=== PATIENT | female | born 1985 | race Caucasian/White ===

== ENCOUNTER 2020-07-24 14:38 | Outpatient (REF) | payer OTHER, SELFPAY ==
[2020-07-24 16:13] LABS: HCG Quantitative 351 mIU/mL
== END 2020-07-24 14:39 | disposition home or self-care (01) ==
LOC: HO.LAB 14:38
PROVIDERS: PCP Internal Medicine; Visit Provider Advanced Practice Midwife
DX: O20.9 Hemorrhage in early pregnancy, unspecified (principal)
CPT/HCPCS: 84702

== ENCOUNTER 2020-07-26 14:49 | Outpatient (REF) | payer OTHER, SELFPAY ==
[2020-07-26 16:12] LABS: HCG Quantitative 332 mIU/mL
== END 2020-07-26 14:50 | disposition home or self-care (01) ==
LOC: HO.LAB 14:49
PROVIDERS: Visit Provider Advanced Practice Midwife
DX: O20.9 Hemorrhage in early pregnancy, unspecified (principal)
CPT/HCPCS: 84702

== ENCOUNTER 2020-08-02 14:49 | Outpatient (REF) | payer OTHER, SELFPAY ==
[2020-08-02 16:14] LABS: HCG Quantitative 398 mIU/mL
== END 2020-08-02 14:50 | disposition home or self-care (01) ==
LOC: HO.LAB 14:49
PROVIDERS: PCP Internal Medicine; Visit Provider Advanced Practice Midwife
DX: O20.9 Hemorrhage in early pregnancy, unspecified (principal); Z3A.00 Weeks of gestation of pregnancy not specified
CPT/HCPCS: 84702

== ENCOUNTER 2020-08-03 12:10 | Outpatient (REF) | payer OTHER, SELFPAY | END 2020-08-03 12:11 | disposition home or self-care (01) | LOC: HO.LAB 12:10 | PROVIDERS: PCP Internal Medicine; Visit Provider Obstetrics & Gynecology | DX: O00.90 Unspecified ectopic pregnancy without intrauterine pregnancy (principal); Z3A.00 Weeks of gestation of pregnancy not specified | CPT/HCPCS: 99213 ==

== ENCOUNTER 2020-08-06 15:44 | Outpatient (REF) | payer OTHER, SELFPAY ==
[2020-08-06 17:11] LABS: HCG Quantitative 318 mIU/mL
== END 2020-08-06 15:45 | disposition home or self-care (01) ==
LOC: HO.LAB 15:44
PROVIDERS: PCP Internal Medicine; Visit Provider Obstetrics & Gynecology
DX: O00.90 Unspecified ectopic pregnancy without intrauterine pregnancy (principal); R79.89 Other specified abnormal findings of blood chemistry
CPT/HCPCS: 84702

== ENCOUNTER 2020-08-09 14:14 | Outpatient (REF) | payer OTHER, SELFPAY ==
[2020-08-09 15:21] LABS: HCG Quantitative 229 mIU/mL
== END 2020-08-09 14:15 | disposition home or self-care (01) ==
LOC: HO.LAB 14:14
PROVIDERS: PCP Internal Medicine; Visit Provider Obstetrics & Gynecology
DX: O00.90 Unspecified ectopic pregnancy without intrauterine pregnancy (principal)
CPT/HCPCS: 84702; 99212

== ENCOUNTER 2020-08-16 16:01 | Outpatient (REF) | payer OTHER, SELFPAY ==
[2020-08-16 18:35] LABS: HCG Quantitative 49 mIU/mL
== END 2020-08-16 16:02 | disposition home or self-care (01) ==
LOC: HO.LAB 16:01
PROVIDERS: PCP Internal Medicine; Visit Provider Obstetrics & Gynecology
DX: O00.90 Unspecified ectopic pregnancy without intrauterine pregnancy (principal)
CPT/HCPCS: 84702; 86850; 86900; 86901

== ENCOUNTER 2020-09-11 13:48 | Outpatient (REF) | payer OTHER, SELFPAY ==
[2020-09-11 15:28] LABS: HCG Quantitative < 2 mIU/mL
== END 2020-09-11 13:49 | disposition home or self-care (01) ==
LOC: HO.LAB 13:48
PROVIDERS: PCP Internal Medicine; Visit Provider Obstetrics & Gynecology
DX: O00.90 Unspecified ectopic pregnancy without intrauterine pregnancy (principal)
CPT/HCPCS: 84702

== ENCOUNTER 2021-02-15 10:31 | Emergency (ER) | payer OTHER, SELFPAY ==
--- NOTE | ~2021-02-15 | CT_ITS ---
EXAMINATION: CT ABDOMEN AND PELVIS WITH CONTRAST CLINICAL INFORMATION: Right lower quadrant pain COMPARISON: None TECHNIQUE: Multidetector volumetric images were obtained from the superior aspect of the liver through the pubic symphysis following administration 85 mL of Omnipaque 350 intravenous contrast. Sagittal and coronal reformatted images were obtained on the technologist's workstation. Oral contrast: No This CT examination was performed using dose optimization techniques as appropriate, variously including the following: *Automated exposure control *Adjustment of mA and/or kV according to patient size (this includes techniques or standardized protocols for targeted exams where dose is matched to indication/reason for exam; i.e. extremities or head) *Use of iterative reconstruction technique DLP: 1505 mGy-cm FINDINGS: LUNG BASES: The visualized lung bases are unremarkable. LIVER, GALLBLADDER, AND BILIARY TREE: The liver is normal in size, shape, and attenuation. No focal hepatic lesion or biliary ductal dilatation is present. The gallbladder has been surgically removed. PANCREAS: Unremarkable. SPLEEN: Unremarkable. ADRENAL GLANDS: Unremarkable. KIDNEYS AND URETERS: The kidneys are normal in size, shape, and attenuation. No hydronephrosis, hydroureter, or calculi seen. No perinephric stranding. BLADDER: Unremarkable. GASTROINTESTINAL TRACT: There are a few scattered diverticuli, stool and gas seen throughout the colon without any diverticulitis or obstruction. The small bowel loops are normal caliber. Appendix is not seen well. No inflammatory process seen. ABDOMINAL WALL: A small umbilical hernia containing fat is noted. LYMPH NODES: Normal. VASCULAR: Unremarkable. PELVIC VISCERA: The uterus is anteverted with a punctate enhancing 4 mm enhancing lesion in the left fundus likely a small fibroid.. No additional lesions seen. There is no free fluid. No adnexal mass or abnormal inguinal or pelvic lymphadenopathy seen. OSSEOUS STRUCTURES: Unremarkable. CT/CT abdomen pelvis w con IMPRESSION: No acute intra-abdominal process seen. Small umbilical hernia containing fat. Probable small enhancing left uterine fibroid.
--- NOTE | 2021-02-15 10:45 | ED_ITS ---
HPI - Abdominal Pain General Chief Complaint: Abdominal Pain Stated Complaint: ABD PAIN Time Seen by Provider: 02/15/21 10:45 Source: patient Mode of arrival: ambulatory Limitations: no limitations History of Present Illness HPI narrative: 35 yo female with hx of fibromyalgia and ectopic comes in with lower abdominal pain n/v/d and fevers at home x 5 days, no recent antibiotics, no prior history of this in past, just finished her menses MD elicited complaint: abdominal pain Pertinent past history: none Onset (ago): day(s) (5) Pain Consistency: constant Location: RLQ and suprapubic Severity: moderate Quality: stabbing Migration to: LLQ and RLQ Exacerbating factors: movement Relieving factors: nothing Associated symptoms: nausea, vomiting, fever and chills Related Data Home Medications Medication Instructions Recorded Confirmed gabapentin 600 mg tablet 600 mg PO TID 08/03/20 Previous Rx's Medication Instructions Recorded norethindrone 1 mg-ethinyl 1 tab PO DAILY #140 tab 08/09/20 estradiol 10 mcg (24)-iron 10 mcg(2) tablet norethindrone 1 mg-ethinyl 1 tab PO DAILY 28 Days #28 tab 09/12/20 estradiol 10 mcg (24)-iron 10 mcg(2) tablet gabapentin 800 mg tablet 800 mg PO TID #90 tab 12/03/20 ondansetron 4 mg PO Q8H PRN #20 tab 02/15/21 Allergies Allergy/AdvReac Type Severity Reaction Status Date / Time cephalexin [From KEFLEX] AdvReac Intermediate NAUSEA & Unverified 08/03/20 12:10 VOMITING duloxetine [From CYMBALTA] AdvReac Intermediate NAUSEA & Unverified 08/03/20 12:10 VOMITING Review of Systems Review of Systems Constitutional : No Weight loss, pos Fever, pos Chills ENT/Mouth : No sore throat, No Rhinorrhea Eyes: No Swelling, No Redness Cardiovascular : No Chest Pain, No SOB, NoEdema Respiratory : No Cough, No Sputum, No Wheezing Gastrointestinal : Positive Nausea, Positive Vomiting, positive Diarrhea, positive abdominal Pain, No Hematochezia, No Melena Genitourinary : No Dysuria, No Urinary Frequency, No Hematuria, No Urgency Musculoskeletal : No joint pain, No Myalgias, No Joint Swelling Skin : No Skin Lesions, No rash Neuro : No Weakness, No Numbness, No Dizziness, No Headache Psych : No Anxiety/Panic, No Depression Heme/Lymph: No Bruising, No Lymphadenopathy Endocrine : No Polyuria, No Polydipsia All other systems reviewed and are negative. Physical Exam Vital Signs: Vital Signs: Last Vital Signs Temp 98.3 F 02/15/21 10:46 Pulse 127 H 02/15/21 10:46 Resp 16 02/15/21 11:48 BP 162/98 H 02/15/21 10:46 Pulse Ox 98 02/15/21 10:46 Body Mass Index 53.1 Appearance: Alert. Oriented X3. No acute distress. Eyes: Pupils equal, round and reactive to light. ENT: Pharynx mild MM Neck: Normal inspection. Neck supple. CVS: Normal heart rate and rhythm. Pulses normal. Respiratory: No respiratory distress. Breath sounds normal. Abdomen: Soft and moderate RLQ ttp + Rovsing's sign, mild guarding, no rebound Skin: Skin warm and dry. Normal skin color. Normal skin turgor. Extremities: No lower extremity edema. No calf ttp Neuro: Oriented X 3. No motor deficit. No sensory deficit. Course Course Course Narrative: patient feels better, COVID GI variant, able to tolerate PO, feels improved up and walking to the bathroom stable O2, plan to send home with nausea medicatiosn and precautions, patient aware MDM - Abdominal Pain MDM Narrative Medical decision making narrative: 35 yo female with hx of fibromyalgia and ectopic in past (methotrexate) comes in with 5 days of worsening lower abdominal pain at this time will need labs, IVF morphine for pain, CT scan for appendicitis/colitis dispo per results and findings. Differential Diagnosis Differential diagnosis: Likely abdominal pain, acute appendicitis, diverticulitis, ovarian cyst and renal colic Lab Data Result diagrams: 02/15/21 11:35 02/15/21 11:35 Labs: Lab Results 02/15/21 02/15/21 02/15/21 Range/Units 11:35 11:35 11:35 WBC 7.2 (4.8-10.8) X10*3/uL RBC 5.91 H D (4.20-5.50) X10*6/uL Hgb 16.6 H D (12.0-16.0) g/dl Hct 48.6 H (37-47) % MCV 82.2 (80-98) fL MCH 28.1 (27.0-33.0) pg MCHC 34.2 (31.0-35.0) g/dl RDW 12.8 (11.0-16.0) % Plt Count 229 (160-400) X10*3/uL MPV 10.7 (9.4-12.3) fL Immature Gran % (Auto) 0.3 (0.0-0.4) % Neut % (Auto) 71.2 (45-73) % Lymph % (Auto) 21.9 (20-40) % [place] % (Auto) 6.2 (2-11) % Eos % (Auto) 0.3 (0-4) % Baso % (Auto) 0.1 (0-2) % Lymph # (Auto) 1.6 (1.2-4.9) X10*3/uL [place] # (Auto) 0.5 (0.1-1.2) X10*3/uL Eos # (Auto) 0.0 (0.0-0.4) X10*3/uL Baso # (Auto) 0.0 (0.0-0.2) X10*3/uL Abs Immat Gran (auto) 0.02 (0.00-0.03) X10*3/uL Absolute Neuts (auto) 5.1 (2.0-8.3) X10*3/uL Absolute Nucleated RBC 0.000 (0.0-0.012) X10*3/uL Nucleated RBC % (auto) 0.0 (0.0-0.2) /100WBC Hold Blue Top SEE NOTE Sodium 139 (135-145) mmol/L Potassium 3.8 (3.3-5.1) mmol/L Chloride 105 (96-108) mmol/L Carbon Dioxide 21 L (22-29) mmol/L Anion Gap 17 (12-20) BUN 13 (9-16) mg/dL Creatinine 0.81 (0.5-1.4) mg/dL Estim Creat Clear Calc 133.9 Estimated GFR > 60 Random Glucose 118 H (60-115) mg/dL Lactic Acid (0.5-2.0) mmol/L Calcium 9.3 (8.4-10.2) mg/dL Magnesium (1.6-2.6) mg/dL Total Bilirubin (0.0-1.0) mg/dL Direct Bilirubin (0.0-0.5) mg/dL AST (5-31) U/L ALT (0-31) U/L Alkaline Phosphatase (39-117) U/L Total Protein (6.5-8.0) g/dL Albumin (3.5-5.0) g/dL Beta HCG, Quant < 2 mIU/mL Urine Color Urine Appearance Urine pH (5.0-8.0) Ur Specific [place] (1.005-1.025) Urine Protein (NEG-TRACE) MG/DL Urine Glucose (UA) (NEG) MG/DL Urine Ketones (NEG) MG/DL Urine Blood (NEG) Urine Nitrite (NEG) Ur Leukocyte Esterase (NEG) COVID-19 (JOY) (Negative) COVID-19 Clin Com 02/15/21 02/15/21 02/15/21 Range/Units 11:35 11:35 11:35 WBC (4.8-10.8) X10*3/uL RBC (4.20-5.50) X10*6/uL Hgb (12.0-16.0) g/dl Hct (37-47) % MCV (80-98) fL MCH (27.0-33.0) pg MCHC (31.0-35.0) g/dl RDW (11.0-16.0) % Plt Count (160-400) X10*3/uL MPV (9.4-12.3) fL Immature Gran % (Auto) (0.0-0.4) % Neut % (Auto) (45-73) % Lymph % (Auto) (20-40) % [place] % (Auto) (2-11) % Eos % (Auto) (0-4) % Baso % (Auto) (0-2) % Lymph # (Auto) (1.2-4.9) X10*3/uL [place] # (Auto) (0.1-1.2) X10*3/uL Eos # (Auto) (0.0-0.4) X10*3/uL Baso # (Auto) (0.0-0.2) X10*3/uL Abs Immat Gran (auto) (0.00-0.03) X10*3/uL Absolute Neuts (auto) (2.0-8.3) X10*3/uL Absolute Nucleated RBC (0.0-0.012) X10*3/uL Nucleated RBC % (auto) (0.0-0.2) /100WBC Hold Blue Top Sodium (135-145) mmol/L Potassium (3.3-5.1) mmol/L Chloride (96-108) mmol/L Carbon Dioxide (22-29) mmol/L Anion Gap (12-20) BUN (9-16) mg/dL Creatinine (0.5-1.4) mg/dL Estim Creat Clear Calc Estimated GFR Random Glucose (60-115) mg/dL Lactic Acid 1.4 (0.5-2.0) mmol/L Calcium (8.4-10.2) mg/dL Magnesium 2.3 (1.6-2.6) mg/dL Total Bilirubin 0.8 (0.0-1.0) mg/dL Direct Bilirubin 0.4 (0.0-0.5) mg/dL AST 32 H D (5-31) U/L ALT 52 H (0-31) U/L Alkaline Phosphatase 113 (39-117) U/L Total Protein 7.6 (6.5-8.0) g/dL Albumin 4.5 (3.5-5.0) g/dL Beta HCG, Quant mIU/mL Urine Color Urine Appearance Urine pH (5.0-8.0) Ur Specific [place] (1.005-1.025) Urine Protein (NEG-TRACE) MG/DL Urine Glucose (UA) (NEG) MG/DL Urine Ketones (NEG) MG/DL Urine Blood (NEG) Urine Nitrite (NEG) Ur Leukocyte Esterase (NEG) COVID-19 (JOY) Positive A (Negative) COVID-19 Clin Com See Note 02/15/21 Range/Units 14:24 WBC (4.8-10.8) X10*3/uL RBC (4.20-5.50) X10*6/uL Hgb (12.0-16.0) g/dl Hct (37-47) % MCV (80-98) fL MCH (27.0-33.0) pg MCHC (31.0-35.0) g/dl RDW (11.0-16.0) % Plt Count (160-400) X10*3/uL MPV (9.4-12.3) fL Immature Gran % (Auto) (0.0-0.4) % Neut % (Auto) (45-73) % Lymph % (Auto) (20-40) % [place] % (Auto) (2-11) % Eos % (Auto) (0-4) % Baso % (Auto) (0-2) % Lymph # (Auto) (1.2-4.9) X10*3/uL [place] # (Auto) (0.1-1.2) X10*3/uL Eos # (Auto) (0.0-0.4) X10*3/uL Baso # (Auto) (0.0-0.2) X10*3/uL Abs Immat Gran (auto) (0.00-0.03) X10*3/uL Absolute Neuts (auto) (2.0-8.3) X10*3/uL Absolute Nucleated RBC (0.0-0.012) X10*3/uL Nucleated RBC % (auto) (0.0-0.2) /100WBC Hold Blue Top Sodium (135-145) mmol/L Potassium (3.3-5.1) mmol/L Chloride (96-108) mmol/L Carbon Dioxide (22-29) mmol/L Anion Gap (12-20) BUN (9-16) mg/dL Creatinine (0.5-1.4) mg/dL Estim Creat Clear Calc Estimated GFR Random Glucose (60-115) mg/dL Lactic Acid (0.5-2.0) mmol/L Calcium (8.4-10.2) mg/dL Magnesium (1.6-2.6) mg/dL Total Bilirubin (0.0-1.0) mg/dL Direct Bilirubin (0.0-0.5) mg/dL AST (5-31) U/L ALT (0-31) U/L Alkaline Phosphatase (39-117) U/L Total Protein (6.5-8.0) g/dL Albumin (3.5-5.0) g/dL Beta HCG, Quant mIU/mL Urine Color YELLOW Urine Appearance CLEAR Urine pH 6.5 (5.0-8.0) Ur Specific [place] <= 1.005 (1.005-1.025) Urine Protein TRACE (NEG-TRACE) MG/DL Urine Glucose (UA) NEG (NEG) MG/DL Urine Ketones 40 (NEG) MG/DL Urine Blood NEG (NEG) Urine Nitrite NEG (NEG) Ur Leukocyte Esterase NEG (NEG) COVID-19 (JOY) (Negative) COVID-19 Clin Com Discharge Plan Discharge Clinical Impression: COVID-19 Abdominal pain Qualifiers: Abdominal location: generalized Qualified Code(s): R10.84 - Generalized abdominal pain Vomiting Qualifiers: Vomiting type: unspecified Vomiting Intractability: non-intractable Nausea presence: with nausea Qualified Code(s): R11.2 - Nausea with vomiting, unspecified Patient Disposition: Home, Self-Care Instructions: Acute Nausea and Vomiting (ED), COVID-19 (Coronavirus Disease 2019) (ED) Additional Instructions: return to ED for any worsening symptoms or concerns Prescriptions: New ondansetron 4 mg tablet,disintegrating 4 mg PO Q8H PRN (Reason: nausea and vomiting) Qty: 20 RF: 0 No Action Lo Loestrin Fe 1 mg-10 mcg (24)/10 mcg (2) tablet 1 tab PO DAILY 28 Days Qty: 28 RF: 6 gabapentin 800 mg tablet 800 mg PO TID Qty: 90 RF: 3 gabapentin 600 mg tablet 600 mg PO TID RF: 0 Lo Loestrin Fe 1 mg-10 mcg (24)/10 mcg (2) tablet 1 tab PO DAILY Qty: 140 RF: 0 Stand Alone Forms: Work/School Release [facility] Past Medical History Attestation statement: The following information was validated with the patient. Medical History Fibromyalgia Surgical History Hx of cholecystectomy Social History Social History Alcohol intake: never Smoking Status: Current every day smoker Smoked in Last 30 Days: No Use of substances other than those prescribed or required for medical reasons: No Advance Directives: Yes Advance Directives Information Provided: No Advance Directives on File: No Patient : No Sexual orientation: Straight/Heterosexual Gender identity: female
[2021-02-15 10:46] VITALS: BP 162/98; PULSE 127; RESP 18; TEMP 36.8; O2SAT 98; BMI 53.1
[2021-02-15 11:39] LABS: MANUAL DIFF FLAG NO
[2021-02-15 11:45] LABS: Basophils Percent Auto 0.1 % (0-2); Eosinophils Percent Auto 0.3 % (0-4); Hematocrit 48.6 % (37-47); Hemoglobin 16.6 g/dl (12.0-16.0); Imm Gran Abs Auto 0.02 X10*3/uL (0.00-0.03); Imm Gran Pct Auto 0.3 % (0.0-0.4); Lymphocytes Absolute Auto 1.6 X10*3/uL (1.2-4.9); Lymphocytes Percent Auto 21.9 % (20-40); Mean Corpuscular HGB Conc 34.2 g/dl (31.0-35.0); Mean Corpuscular Hemoglobin 28.1 pg (27.0-33.0); Mean Corpuscular Volume 82.2 fL (80-98); Mean Platelet Volume 10.7 fL (9.4-12.3); Monocytes Absolute Auto 0.5 X10*3/uL (0.1-1.2); Monocytes Percent Auto 6.2 % (2-11); Neutrophils Absolute Auto 5.1 X10*3/uL (2.0-8.3); Neutrophils Percent Auto 71.2 % (45-73); Platelet Count 229 X10*3/uL (160-400); Red Blood Count 5.91 X10*6/uL (4.20-5.50); Red Cell Distribution Width 12.8 % (11.0-16.0); White Blood Count 7.2 X10*3/uL (4.8-10.8)
[2021-02-15 11:48] VITALS: RESP 16
[2021-02-15] MEDS: Ketorolac Tromethamine 30 MG/ML VIAL IVPUSH (11:48)
[2021-02-15] MEDS: ondansetron HCL 4 MG/2 ML VIAL IVPUSH ×2 (11:48→15:22)
[2021-02-15] MEDS: 0.9 % Sodium Chloride 1,000 ML 999 ML IVCONT ×2 (11:48→13:25)
[2021-02-15] MEDS: Morphine Sulfate 4 MG/ML CARTRIDGE IVPUSH (11:48)
[2021-02-15 12:00] LABS: COVID-19 Test Positive (Negative); IDNOW Serial# 9DD0AD1C; Lactic Acid 1.4 mmol/L (0.5-2.0)
[2021-02-15 12:04] LABS: Alanine Aminotransferase 52 U/L (0-31); Albumin Level 4.5 g/dL (3.5-5.0); Alkaline Phosphatase 113 U/L (39-117); Anion Gap 17 (12-20); Aspartate Amino Transferase 32 U/L (5-31); Bilirubin Direct 0.4 mg/dL (0.0-0.5); Bilirubin Total 0.8 mg/dL (0.0-1.0); Blood Urea Nitrogen 13 mg/dL (9-16); Calcium 9.3 mg/dL (8.4-10.2); Carbon Dioxide 21 mmol/L (22-29); Chloride 105 mmol/L (96-108); Creatinine Clr Calc Pharmacy 133.9; Estimated Glomerular Filt Rate > 60; Glucose Random 118 mg/dL (60-115); Magnesium 2.3 mg/dL (1.6-2.6); Potassium 3.8 mmol/L (3.3-5.1); Sodium 139 mmol/L (135-145); Total Protein 7.6 g/dL (6.5-8.0)
[2021-02-15 12:09] LABS: HCG Quantitative < 2 mIU/mL
[2021-02-15] MEDS: iohexoL 350 MG/ML 100 ML INFUS..BTL IV (12:42)
[2021-02-15 14:37] LABS: Glucose Urine UA NEG (NEG); Leukocyte Esterase Urine NEG (NEG); Nitrite Urine NEG (NEG); PH 6.5 (5.0-8.0); Specific Gravity - Urine <= 1.005 (1.005-1.025); Urine Blood NEG (NEG); Urine Ketones 40 MG/DL (NEG); Urine Protein TRACE MG/DL (NEG-TRACE)
[2021-02-15 14:45] LABS: Appearance Urine CLEAR; Color Urine YELLOW
[2021-02-15 15:22] VITALS: BP 123/94; PULSE 90; RESP 6; O2SAT 96
[2021-02-15 15:27] VITALS: BP 125/86; PULSE 99; RESP 16; O2SAT 97
== END 2021-02-15 15:30 | disposition home or self-care (01) ==
PROVIDERS: Emergency Provider Emergency Medicine; PCP Internal Medicine
DX: U07.1 COVID-19 (principal); R10.30 Lower abdominal pain, unspecified; R10.31 Right lower quadrant pain; R11.2 Nausea with vomiting, unspecified; F17.200 Nicotine dependence, unspecified, uncomplicated; Z79.899 Other long term (current) drug therapy; Z71.6 Tobacco abuse counseling
CPT/HCPCS: 36415; 74177; 80048; 80076; 81003; 83605; 83735; 84702; 85025; 87040; 87635; 96361; 96365; 96375; 96376; 99285; J1885; J2270; J2405; Q9967

== ENCOUNTER 2021-02-17 09:57 | Emergency (ER) | payer OTHER, SELFPAY ==
[2021-02-17 10:10] VITALS: BP 132/79; PULSE 106; RESP 22; TEMP 37; O2SAT 96; BMI 53.1
[2021-02-17 10:23] VITALS: BP 132/79; PULSE 103; RESP 14; TEMP 37; O2SAT 96
--- NOTE | 2021-02-17 10:37 | PC.NURSE ---
Pt alert and oriented, VSS, skin pink, warm, dry. Pt reports abd pain for 3days, n/v, diarrhea, and inability to void since 02/17 am. Visited ED 02/15 for same issue with some relief after visit. Pain worse than before this am. BS hyperactive all quadrants, abd tender to touch. Pt COVID +. Awaiting lab results at this time.
--- NOTE | 2021-02-17 11:28 | ED_ITS ---
HPI - Abdominal Pain General Chief Complaint: Abdominal Pain Stated Complaint: + Covid, multiple complaints Time Seen by Provider: 02/17/21 10:37 Source: patient Mode of arrival: ambulatory Limitations: no limitations History of Present Illness HPI narrative: Patient presents to ED for abdominal pain for the past 3 days. Patient known COVID positive. Patient denies any chest pain or shortness of breath. Patient was seen 3 days ago for similar presentation. Patient states also unable to void urine. Patient has any swelling of lower extremity, dysuria, vaginal bleeding, flank pain, fever, or chills. Patient had similar presentation 2 days ago. Patient states diarrhea, nausea, and vomiting Related Data Home Medications Medication Instructions Recorded Confirmed gabapentin 600 mg tablet 600 mg PO TID 08/03/20 Previous Rx's Medication Instructions Recorded norethindrone 1 mg-ethinyl 1 tab PO DAILY #140 tab 08/09/20 estradiol 10 mcg (24)-iron 10 mcg(2) tablet norethindrone 1 mg-ethinyl 1 tab PO DAILY 28 Days #28 tab 09/12/20 estradiol 10 mcg (24)-iron 10 mcg(2) tablet gabapentin 800 mg tablet 800 mg PO TID #90 tab 12/03/20 ondansetron 4 mg PO Q8H PRN #20 tab 02/15/21 dicyclomine 20 mg PO QID #28 tab 02/17/21 Allergies Allergy/AdvReac Type Severity Reaction Status Date / Time cephalexin [From KEFLEX] AdvReac Intermediate NAUSEA & Verified 02/17/21 10:18 VOMITING duloxetine [From CYMBALTA] AdvReac Intermediate NAUSEA & Verified 02/17/21 10:18 VOMITING Review of Systems Review of Systems Yes all other systems are reviewed and are negative Constitutional: Reports as per HPI and Reports no additional constitutional complaints Eyes: Reports as per HPI and Reports no additional eye complaints Reports system reviewed and no additional complaints, except as documented and Reports as per HPI Cardiovascular: Reports as per HPI and Reports no additional cardiovascular complaints Respiratory: Reports as per HPI and Reports no additional respiratory complaints Gastrointestinal: Reports as per HPI, Reports no additional gastrointestinal complaints, Reports abdominal pain, Reports belching (Abdominal pain), Reports diarrhea, Reports nausea and Reports vomiting Genitourinary: Reports no additional female genitourinary complaints and Reports as per HPI Musculoskeletal: Reports no additional musculoskeletal complaints and Reports as per HPI Reports system reviewed and no additional complaints, except as documented and Reports as per HPI Psychiatric: Reports no additional psychiatric complaints and Reports as per HPI Physical Exam Vital Signs: Vital Signs: Last Vital Signs Temp 98.4 F 02/17/21 14:17 Pulse 98 02/17/21 16:00 Resp 20 02/17/21 16:00 BP 153/87 H 02/17/21 16:00 Pulse Ox 96 02/17/21 16:00 Body Mass Index 53.1 Const: General: cooperative, healthy appearing, comfortable, no acute distress, well developed, alert, awake and Physically active Orientation/consciousness: patient oriented x3 HENMT: Head: Yes normal to inspection, Yes No palpable skull fracture present, Yes normocephalic and Yes atraumatic Eyes: General: appearance normal, both eyes and all related structures Neck: Neck: Yes normal visual inspection, Yes full ROM, Yes no lymphadenopathy, Yes no meningeal signs, Yes trachea midline, Yes supple and No tender Chest: Chest palpation & inspection: normal inspection of the chest and normal palpation of entire chest wall Breast/axilla inspection: normal inspection of the breasts Resp: Effort & Inspection: normal respiratory effort and able to speak in complete sentences Auscultation: clear to auscultation bilaterally Cardio: Jugular venous distension: no JVD Heart sounds: S1 normal heart sound present and S2 normal heart sound present GI: Inspection: Yes normal to inspection and No abdominal wall ecchymosis Palpation (GI): Soft to palpation, not firm, Tenderness to palpation present (GI) in the LLQ and in the RLQ; not at McBurney's point, not periumbilically, not suprapubicly, Mccloud's sign negative, obturator sign negative, psoas sign negative, with no rebound tenderness and Rovsing's sign negative, no guarding and not rigid : General: No CVA tenderness and Yes no CVA tenderness Back/Spine/Pelvis: Back: no CVA tenderness, No CVA tenderness and No back tenderness Skin: General skin exam: no rashes or lesions noted and elasticity normal Neuro: General: patient oriented x3, no meningeal signs and CN's II-XI intact bilaterally Cranial nerves: Yes CN's II-XII intact bilaterally Extrem: General: Yes normal to inspection and Yes full ROM Psych: Appearance: grossly normal, well kempt and not disheveled Course Course Course Narrative: Patient having abdominal pain, diarrhea, nausea, vomiting most likely viral syndrome from COVID. Not suspecting PE or MS. will do basic labs and pain medication with GI cocktail. Wait for test and will give Toradol. Patient was seen here 3 days ago for similar presentation had normal CT scan. Reevaluation(s) Reevaluation #1: Patient labs negative to give for elevated white blood cell count. Other labs are baseline. Patient given morphine could she still having pain. Waiting for UA results. Reevaluation #2: I went to re-evaluate patient states feeling better. Patient states she has has had these episodes before in the past and states they occurred after smoking weed. With this information present presentation indicates cyclic vomiting/clicking abdominal pain. Patient admits to recently smoking weed. If UA come back normal patient will be discharged. Reevaluation #3: Patient's UA came back negative for UTI. Patient is safe for discharge. No need for repeat imaging. Patient does not have any guarding or abdominal rigidity. CT scan 2 days earlier was normal. MDM - Abdominal Pain MDM Narrative Medical decision making narrative: Abdominal pain. Sick with vomiting Lab Data Result diagrams: 02/17/21 11:37 02/17/21 11:37 Labs: Lab Results 02/17/21 02/17/21 02/17/21 Range/Units 11:37 11:37 11:37 WBC 8.2 (4.8-10.8) X10*3/uL RBC 5.59 H (4.20-5.50) X10*6/uL Hgb 16.0 (12.0-16.0) g/dl Hct 45.1 (37-47) % MCV 80.7 (80-98) fL MCH 28.6 (27.0-33.0) pg MCHC 35.5 H (31.0-35.0) g/dl RDW 12.7 (11.0-16.0) % Plt Count 313 D (160-400) X10*3/uL MPV 10.6 (9.4-12.3) fL Immature Gran % (Auto) 0.4 (0.0-0.4) % Neut % (Auto) 72.2 (45-73) % Lymph % (Auto) 20.1 (20-40) % [place] % (Auto) 6.8 (2-11) % Eos % (Auto) 0.1 (0-4) % Baso % (Auto) 0.4 (0-2) % Lymph # (Auto) 1.7 (1.2-4.9) X10*3/uL [place] # (Auto) 0.6 (0.1-1.2) X10*3/uL Eos # (Auto) 0.0 (0.0-0.4) X10*3/uL Baso # (Auto) 0.0 (0.0-0.2) X10*3/uL Abs Immat Gran (auto) 0.03 (0.00-0.03) X10*3/uL Absolute Neuts (auto) 5.9 (2.0-8.3) X10*3/uL Absolute Nucleated RBC 0.000 (0.0-0.012) X10*3/uL Nucleated RBC % (auto) 0.0 (0.0-0.2) /100WBC PT 15.2 H (10.8-13.0) SEC INR 1.3 H (0.9-1.1) APTT 33.5 (24.1-38.0) SEC Sodium 140 (135-145) mmol/L Potassium 3.8 (3.3-5.1) mmol/L Chloride 105 (96-108) mmol/L Carbon Dioxide 21 L (22-29) mmol/L Anion Gap 18 (12-20) BUN 14 (9-16) mg/dL Creatinine 0.89 (0.5-1.4) mg/dL Estim Creat Clear Calc 121.8 Estimated GFR > 60 Random Glucose 128 H (60-115) mg/dL Calcium 9.4 (8.4-10.2) mg/dL Total Bilirubin 1.2 H (0.0-1.0) mg/dL Direct Bilirubin 0.3 (0.0-0.5) mg/dL AST 25 (5-31) U/L ALT 36 H (0-31) U/L Alkaline Phosphatase 103 (39-117) U/L Total Protein 7.6 (6.5-8.0) g/dL Albumin 4.5 (3.5-5.0) g/dL Lipase 18 (8-78) U/L Beta HCG, Quant < 2 mIU/mL Urine Color Urine Appearance Urine pH (5.0-8.0) Ur Specific [place] (1.005-1.025) Urine Protein (NEG-TRACE) MG/DL Urine Glucose (UA) (NEG) MG/DL Urine Ketones (NEG) MG/DL Urine Blood (NEG) Urine Nitrite (NEG) Ur Leukocyte Esterase (NEG) Urine RBC (0) /HPF Urine WBC (0-4) /HPF Ur Squamous Epith Cells /LPF Amorphous Sediment /LPF Urine Bacteria /LPF 02/17/21 Range/Units 14:52 WBC (4.8-10.8) X10*3/uL RBC (4.20-5.50) X10*6/uL Hgb (12.0-16.0) g/dl Hct (37-47) % MCV (80-98) fL MCH (27.0-33.0) pg MCHC (31.0-35.0) g/dl RDW (11.0-16.0) % Plt Count (160-400) X10*3/uL MPV (9.4-12.3) fL Immature Gran % (Auto) (0.0-0.4) % Neut % (Auto) (45-73) % Lymph % (Auto) (20-40) % [place] % (Auto) (2-11) % Eos % (Auto) (0-4) % Baso % (Auto) (0-2) % Lymph # (Auto) (1.2-4.9) X10*3/uL [place] # (Auto) (0.1-1.2) X10*3/uL Eos # (Auto) (0.0-0.4) X10*3/uL Baso # (Auto) (0.0-0.2) X10*3/uL Abs Immat Gran (auto) (0.00-0.03) X10*3/uL Absolute Neuts (auto) (2.0-8.3) X10*3/uL Absolute Nucleated RBC (0.0-0.012) X10*3/uL Nucleated RBC % (auto) (0.0-0.2) /100WBC PT (10.8-13.0) SEC INR (0.9-1.1) APTT (24.1-38.0) SEC Sodium (135-145) mmol/L Potassium (3.3-5.1) mmol/L Chloride (96-108) mmol/L Carbon Dioxide (22-29) mmol/L Anion Gap (12-20) BUN (9-16) mg/dL Creatinine (0.5-1.4) mg/dL Estim Creat Clear Calc Estimated GFR Random Glucose (60-115) mg/dL Calcium (8.4-10.2) mg/dL Total Bilirubin (0.0-1.0) mg/dL Direct Bilirubin (0.0-0.5) mg/dL AST (5-31) U/L ALT (0-31) U/L Alkaline Phosphatase (39-117) U/L Total Protein (6.5-8.0) g/dL Albumin (3.5-5.0) g/dL Lipase (8-78) U/L Beta HCG, Quant mIU/mL Urine Color ADAM Urine Appearance HAZY Urine pH 6.0 (5.0-8.0) Ur Specific [place] >= 1.030 H (1.005-1.025) Urine Protein 1+ H (NEG-TRACE) MG/DL Urine Glucose (UA) NEG (NEG) MG/DL Urine Ketones >=80 (NEG) MG/DL Urine Blood NEG (NEG) Urine Nitrite NEG (NEG) Ur Leukocyte Esterase NEG (NEG) Urine RBC 0 (0) /HPF Urine WBC 0-2 (0-4) /HPF Ur Squamous Epith Cells 4+ /LPF Amorphous Sediment 3+ /LPF Urine Bacteria NONE /LPF Discharge Plan Discharge Clinical Impression: Abdominal pain, Cyclic vomiting syndrome Patient Disposition: Home, Self-Care Instructions: Abdominal Pain (ED), Cyclic Vomiting Syndrome (ED) Additional Instructions: Return to the ED immediately for worsening abdominal pain, chest pain, shortness of breath, inability to tolerate solid foods/liquids, dizziness, weakness, hematuria, flank pain, vaginal bleeding, vaginal discharge, headache, or any other concerning symptoms. Continue taking Zofran as prescribed. Please follow-up with your PCP. Labs came back normal. Urine negative for UTI. You're not . Prescriptions: New dicyclomine 20 mg tablet 20 mg PO QID Qty: 28 RF: 0 No Action Lo Loestrin Fe 1 mg-10 mcg (24)/10 mcg (2) tablet 1 tab PO DAILY 28 Days Qty: 28 RF: 6 gabapentin 800 mg tablet 800 mg PO TID Qty: 90 RF: 3 ondansetron 4 mg tablet,disintegrating 4 mg PO Q8H PRN (Reason: nausea and vomiting) Qty: 20 RF: 0 gabapentin 600 mg tablet 600 mg PO TID RF: 0 Lo Loestrin Fe 1 mg-10 mcg (24)/10 mcg (2) tablet 1 tab PO DAILY Qty: 140 RF: 0 Stand Alone Forms: Work/School Release Print Language: Irish [facility] Past Medical History Medical History Fibromyalgia Surgical History Hx of cholecystectomy Social History Social History Alcohol intake: never Smoking Status: Current some day smoker Smoked in Last 30 Days: Yes Use of substances other than those prescribed or required for medical reasons: No Advance Directives: No Advance Directives Information Provided: No Sexual orientation: Straight/Heterosexual Gender identity: female
[2021-02-17 11:32] VITALS: BP 143/96; PULSE 82; O2SAT 100
[2021-02-17 11:42] LABS: MANUAL DIFF FLAG NO
[2021-02-17 11:43] LABS: Basophils Percent Auto 0.4 % (0-2); Eosinophils Percent Auto 0.1 % (0-4); Hematocrit 45.1 % (37-47); Imm Gran Abs Auto 0.03 X10*3/uL (0.00-0.03); Imm Gran Pct Auto 0.4 % (0.0-0.4); Lymphocytes Absolute Auto 1.7 X10*3/uL (1.2-4.9); Lymphocytes Percent Auto 20.1 % (20-40); Mean Corpuscular HGB Conc 35.5 g/dl (31.0-35.0); Mean Corpuscular Hemoglobin 28.6 pg (27.0-33.0); Mean Corpuscular Volume 80.7 fL (80-98); Mean Platelet Volume 10.6 fL (9.4-12.3); Monocytes Absolute Auto 0.6 X10*3/uL (0.1-1.2); Monocytes Percent Auto 6.8 % (2-11); Neutrophils Absolute Auto 5.9 X10*3/uL (2.0-8.3); Neutrophils Percent Auto 72.2 % (45-73); Platelet Count 313 X10*3/uL (160-400); Red Blood Count 5.59 X10*6/uL (4.20-5.50); Red Cell Distribution Width 12.7 % (11.0-16.0); White Blood Count 8.2 X10*3/uL (4.8-10.8)
[2021-02-17] MEDS: diphenhydrAMINE HCL 50 MG/ML VIAL IVPUSH (11:44)
[2021-02-17] MEDS: Famotidine/PF 20 MG/2 ML VIAL IVPUSH (11:44)
[2021-02-17] MEDS: 0.9 % Sodium Chloride 1,000 ML 999 ML IV ×2 (11:45→16:03)
[2021-02-17] MEDS: Magnesium Hydrox/Alum Hydrox 30 ML ORAL.SUSP PO (11:45)
[2021-02-17] MEDS: PHENobarb/Hyoscy/Atropine/Scop 10 ML ELIXIR PO (11:46)
--- NOTE | 2021-02-17 11:49 | PC.NURSE ---
IV established and patent, vein finder used. Bladder scan result 340cc. Lab results pending. Pt resting comfortably.
[2021-02-17 12:02] LABS: INTERNATIONAL NORM RATIO 1.3 (0.9-1.1); Prothrombin Time 15.2 SEC (10.8-13.0)
[2021-02-17 12:05] LABS: Partial Thromboplastin Time 33.5 SEC (24.1-38.0)
[2021-02-17 12:22] LABS: Alanine Aminotransferase 36 U/L (0-31); Albumin Level 4.5 g/dL (3.5-5.0); Alkaline Phosphatase 103 U/L (39-117); Anion Gap 18 (12-20); Aspartate Amino Transferase 25 U/L (5-31); Bilirubin Direct 0.3 mg/dL (0.0-0.5); Bilirubin Total 1.2 mg/dL (0.0-1.0); Blood Urea Nitrogen 14 mg/dL (9-16); Calcium 9.4 mg/dL (8.4-10.2); Carbon Dioxide 21 mmol/L (22-29); Chloride 105 mmol/L (96-108); Creatinine Clr Calc Pharmacy 121.8; Estimated Glomerular Filt Rate > 60; Glucose Random 128 mg/dL (60-115); Lipase 18 U/L (8-78); Potassium 3.8 mmol/L (3.3-5.1); Sodium 140 mmol/L (135-145); Total Protein 7.6 g/dL (6.5-8.0)
[2021-02-17 12:54] VITALS: BP 122/58; PULSE 80; RESP 20; O2SAT 96
--- NOTE | 2021-02-17 12:57 | PC.NURSE ---
pt reports no improvement after the medications, pain still 9/10 all over her abd, vomited a small amount. pt does report that she smokes marijuana daily but has not smoked in a couple of days,
[2021-02-17] MEDS: Morphine Sulfate 4 MG/ML CARTRIDGE IVPUSH (13:43)
[2021-02-17 14:01] LABS: HCG Quantitative < 2 mIU/mL
[2021-02-17 14:17] VITALS: BP 163/93; PULSE 67; RESP 16; TEMP 36.9; O2SAT 99
[2021-02-17 15:17] LABS: Glucose Urine UA NEG (NEG); Leukocyte Esterase Urine NEG (NEG); Nitrite Urine NEG (NEG); Specific Gravity - Urine >= 1.030 (1.005-1.025); Urine Blood NEG (NEG); Urine Ketones >=80 MG/DL (NEG); Urine Protein 1+ MG/DL (NEG-TRACE)
[2021-02-17 15:21] LABS: Appearance Urine HAZY; Color Urine AMBER
[2021-02-17 15:45] LABS: Amorphous Sediment Urine 3+ /LPF; RBC Urine 0 /HPF (0); Squamous Epithelial Cell Urine 4+ /LPF; WBC Urine 0-2 /HPF (0-4)
[2021-02-17 16:00] VITALS: BP 153/87; PULSE 98; RESP 20; O2SAT 96
== END 2021-02-17 16:38 | disposition home or self-care (01) ==
PROVIDERS: Physician Assistant; Emergency Provider Emergency Medicine Emergency Medical Services; PCP Internal Medicine
DX: R11.15 Cyclical vomiting syndrome unrelated to migraine (principal); U07.1 COVID-19; R10.9 Unspecified abdominal pain; F17.200 Nicotine dependence, unspecified, uncomplicated; Z71.6 Tobacco abuse counseling; Z79.899 Other long term (current) drug therapy
CPT/HCPCS: 36415; 51702; 51798; 80053; 80076; 81001; 82248; 83690; 84702; 85025; 85610; 85730; 96365; 96375; 99285; J1200; J2270

== ENCOUNTER 2022-06-08 21:29 | Emergency (ER) | payer OTHER, SELFPAY ==
--- NOTE | ~2022-06-08 | XR_ITS ---
EXAMINATION: XR TIBIA/FIBULA, RIGHT XR ANKLE, RIGHT CLINICAL INFORMATION: Fall COMPARISON: None TECHNIQUE: 2 views of the right tibia/fibula. 2 views of the right ankle. FINDINGS: There is a comminuted, displaced fracture of the distal tibia at the ankle with suspected medial and posterior malleolus fragment. There is disruption of the tibiotalar articulation with the talus displaced a full shaft width lateral to the distal tibial shaft. There is a comminuted fracture of the distal fibular diaphysis, with apex medial and anterior angulation of the major distal fragment. There is cortical irregularity of the fibular head, raising concern for nondisplaced fracture. Alignment across the knee is anatomic. XR/XR ankle RT 2V IMPRESSION: Comminuted, displaced fractures of the distal tibia and fibula as described above, with dislocation at the tibiotalar articulation. Suggestion of nondisplaced fibular head fracture.
--- NOTE | ~2022-06-08 | XR_ITS ---
EXAMINATION: XR ANKLE, LEFT XR FOOT, LEFT CLINICAL INFORMATION: Fall COMPARISON: None TECHNIQUE: 3 views of the left ankle. 3 views of the left foot. FINDINGS: There is a mildly displaced fracture fragment off the base of the fifth metatarsal. Adjacent soft tissue swelling is noted. Articular alignment throughout the foot and ankle is maintained. XR/XR foot LT 2V IMPRESSION: Mildly displaced fracture at the base of the fifth metatarsal.
--- NOTE | ~2022-06-08 | XR_ITS ---
EXAMINATION: XR ANKLE, RIGHT CLINICAL INFORMATION: Post reduction COMPARISON: 06/08/2022 TECHNIQUE: AP, lateral, and mortise views of the right ankle. FINDINGS: Overlying cast material obscures fine bony detail. There is improved alignment across the tibiotalar articulation compared to prior; alignment is now near-anatomic, though there is some widening of the superior joint space. Slight displacement noted of medial and posterior malleolus fracture fragments. There is improved alignment of the comminuted fracture of the distal fibular diaphysis. XR/XR ankle RT 2V IMPRESSION: Interval improvement in alignment across the ankle joint and fractures of the distal tibia and fibula as described above.
--- NOTE | ~2022-06-08 | XR_ITS ---
EXAMINATION: XR TIBIA/FIBULA, RIGHT XR ANKLE, RIGHT CLINICAL INFORMATION: Fall COMPARISON: None TECHNIQUE: 2 views of the right tibia/fibula. 2 views of the right ankle. FINDINGS: There is a comminuted, displaced fracture of the distal tibia at the ankle with suspected medial and posterior malleolus fragment. There is disruption of the tibiotalar articulation with the talus displaced a full shaft width lateral to the distal tibial shaft. There is a comminuted fracture of the distal fibular diaphysis, with apex medial and anterior angulation of the major distal fragment. There is cortical irregularity of the fibular head, raising concern for nondisplaced fracture. Alignment across the knee is anatomic. XR/XR tibia fibula RT 2V IMPRESSION: Comminuted, displaced fractures of the distal tibia and fibula as described above, with dislocation at the tibiotalar articulation. Suggestion of nondisplaced fibular head fracture.
--- NOTE | ~2022-06-08 | XR_ITS ---
EXAMINATION: XR ANKLE, LEFT XR FOOT, LEFT CLINICAL INFORMATION: Fall COMPARISON: None TECHNIQUE: 3 views of the left ankle. 3 views of the left foot. FINDINGS: There is a mildly displaced fracture fragment off the base of the fifth metatarsal. Adjacent soft tissue swelling is noted. Articular alignment throughout the foot and ankle is maintained. XR/XR ankle LT 2V IMPRESSION: Mildly displaced fracture at the base of the fifth metatarsal.
[2022-06-08 21:36] VITALS: BP 115/76; PULSE 84; RESP 18; TEMP 36.9; O2SAT 99; BMI 56.7
[2022-06-08 21:58] VITALS: RESP 18
[2022-06-08] MEDS: HYDROmorphone HCl 2 MG/ML VIAL IVPUSH (21:58)
--- NOTE | 2022-06-08 23:10 | ED_ITS ---
HPI - Extremity Injury (Lower) General Chief Complaint: Extremity Injury, Lower Stated Complaint: Fall/Ankle Injury Time Seen by Provider: 06/08/22 21:46 Source: patient Mode of arrival: EMS Limitations: no limitations History of Present Illness HPI Narrative: Patient was on delivery for 2-missed a step a concrete landing rolled her right ankle came with severe pain swelling and obvious deformity of the right ankle no head injury no loss of consciousness no other injuries Related Data Previous Rx's Medication Instructions Recorded cyclobenzaprine 10 mg tablet 10 mg PO BEDTIME #14 tabs 11/05/21 meloxicam 15 mg tablet 15 mg PO DAILY #14 tabs 11/05/21 amoxicillin 875 mg-potassium 1 tab PO BID 10 days #20 tabs 01/14/22 clavulanate 125 mg tablet gabapentin 800 mg tablet 800 mg PO TID #90 tabs 05/08/22 chair, wheel (Wheel chair) #1 ea 06/09/22 oxycodone-acetaminophen 5 mg-325 1 tab PO Q6H PRN pain #30 tabs 06/09/22 mg tablet (Percocet) Allergies Allergy/AdvReac Type Severity Reaction Status Date / Time cephalexin [From KEFLEX] AdvReac Intermediate NAUSEA & Verified 01/14/22 11:04 VOMITING duloxetine [From CYMBALTA] AdvReac Intermediate NAUSEA & Verified 01/14/22 11:04 VOMITING Review of Systems Review of Systems: Yes all other systems are reviewed and are negative PMFSH Past Medical History Medical History Bimalleolar ankle fracture Fibromyalgia Metatarsal bone fracture Morbid obesity with BMI of 50.0-59.9, adult Post traumatic stress disorder (PTSD) Smoker Surgical History History of laparoscopic cholecystectomy (~2007) Social History Social History Housing: Apartment Alcohol intake: never Patient Tobacco Use Status: Current everyday Tobacco user Cigarettes Per Day: 10 Second Hand Smoke Exposure: Yes Substance Use Type: Marijuana Advance Directives: No Advance Directives Information Provided: No service: No Current occupational status: student Sexual orientation: Straight/Heterosexual Gender identity: Female Cognitive needs: No Hearing needs: No Vision needs: No Physical Exam Vital Signs: Vital Signs: Last Vital Signs Temp 98.4 F 06/08/22 21:36 Pulse 92 06/09/22 01:31 Resp 20 06/09/22 01:31 BP 141/80 H 06/09/22 01:31 Pulse Ox 96 06/09/22 01:31 O2 Del Method 06/09/22 01:31 O2 Flow Rate 3 06/09/22 00:08 Oxygen Flow Rate 3 06/09/22 00:16 BMI result Body Mass Index 56.7 Appearance: Alert. Oriented X3. In moderate distress eyes: PERRLA, ENT: Pharynx normal. Oral Mucosa moist Neck: Normal inspection. Neck supple. CVS: Normal heart rate and rhythm. Pulses normal. Respiratory: No respiratory distress. Equal air entry bilateral, no wheezing/rales/rhonchi Abdomen: Soft and nontender. Bowel sounds are present, no mass palpable, Skin: Skin warm and dry. Normal skin color. Normal skin turgor. Extremities: No lower extremity edema. No calf tenderness obvious deformity of right ankle with prominent medial malleolus suggestive of dislocation neurovascular intact Neuro: Oriented X 3. No motor deficit. MDM - Extremity Injury (Lower) MDM Narrative Medical decision making narrative: 0100 Patient status post mechanical fall with trimalleolar fracture right ankle with ankle dislocation closed reduction was done under conscious sedation with anatomical reduction and alignment neurovascular intact. Patient also had left 5th metatarsal base fracture unable to ambulate in the ER with walker does not have any wheelchair at home. Family would like to go home instead of going to rehab as they may find wheelchair tomorrow the friend and they will follow-up with orthopedics as outpatient patient status post splint in both lower extremity Procedures Orthopedic Fracture Reduction Fracture #1: Time Out Performed: Yes Side: right Fracture Reduction Location: tibia and fibula Analgesia: procedural sedation and hematoma block Technique: direct manipulation Post Reduction X-rays Demonstrate: anatomical reduction Post-reduction neuro exam: intact Post-reduction vascular exam: intact Splint Applied: Yes Patient Tolerated Procedure: well Orthopedic Joint Reduction Joint #1: Time Out Performed: Yes Side: right Joint Reduction Location: ankle Analgesia: procedural sedation and hematoma block Local Anesthesia: lidocaine 2% Amount of anesthesic used (mL): 10 Technique used: traction/counter-traction Post-reduction neuro exam: intact Post-reduction vascular: intact Post Reduction X-Ray Obtained: Yes Post Reduction X-Ray Results: reduced Splint Applied: Yes Patient Tolerated Procedure: well and no complications Procedural Sedation Indication: fracture/dislocation reduction ASA Class: I Mallampati Class: I Time of Last PO Intake: 20:00 Preparation: plastics fabricator and assembler applied, pulse oximeter, capnometry used, supplemental O2 applied and IV secured IV Propofol dose (mg): 100 Complications: hypoxia Interventions: oxygen applied Additional Comments: Patient had transient hypoxia improved by 100% non-rebreather for short time Discharge Plan Discharge Clinical Impression: Bimalleolar ankle fracture, Metatarsal boss of left foot, Closed fibular fracture Patient Disposition: Home, Self-Care Instructions: Ankle Fracture (ED), Leg Fracture (ED) Additional Instructions: Nonweightbearing right foot Partial weight-bearing left side Use wheelchair/walker Follow-up with orthopedics next week Keep the leg elevated pain medication for pain control as advised Prescriptions: New oxycodone-acetaminophen [Percocet] 5-325 mg tablet 1 tab PO Q6H PRN (Reason: pain) Qty: 30 0RF Rx Instructions: Partial Fill upon patient request. (DME) Wheel chair Kit See Rx Instructions .Route Qty: 1 0RF Rx Instructions: As directed No Action gabapentin 800 mg tablet 800 mg PO TID Qty: 90 0RF cyclobenzaprine 10 mg tablet 10 mg PO BEDTIME Qty: 14 0RF meloxicam 15 mg tablet 15 mg PO DAILY Qty: 14 0RF amoxicillin-pot clavulanate 875-125 mg tablet 1 tab PO BID 10 Days Qty: 20 0RF Referrals: Drew Syed MD [Physician] - 1 week
[2022-06-08 23:47] VITALS: BP 142/87; PULSE 82; RESP 16; O2SAT 100
[2022-06-08] MEDS: propofoL 200 MG/20 ML VIAL IVPUSH (23:47)
[2022-06-08 23:52] VITALS: BP 139/77; PULSE 83; RESP 16; O2SAT 100
[2022-06-08 23:56] VITALS: BP 137/81; PULSE 73; RESP 14; O2SAT 100
[2022-06-09] VITALS: BP 145/91; PULSE 82; RESP 18; O2SAT 100
[2022-06-09 00:08] VITALS: BP 145/91; PULSE 86; RESP 16; O2SAT 100
[2022-06-09 00:16] VITALS: BP 158/94; PULSE 83; RESP 16; O2SAT 100
[2022-06-09] MEDS: HYDROmorphone HCl 2 MG/ML VIAL IVPUSH (01:30)
[2022-06-09 01:31] VITALS: BP 141/80; PULSE 92; RESP 20; O2SAT 96
== END 2022-06-09 01:50 | disposition home or self-care (01) ==
PROVIDERS: Emergency Provider Internal Medicine; PCP Internal Medicine
DX: S82.842A Displaced bimalleolar fracture of left lower leg, initial encounter for closed fracture (principal); S92.302A Fracture of unspecified metatarsal bone(s), left foot, initial encounter for closed fracture; S82.402A Unspecified fracture of shaft of left fibula, initial encounter for closed fracture; W10.9XXA Fall (on) (from) unspecified stairs and steps, initial encounter; Y93.9 Activity, unspecified; Y92.9 Unspecified place or not applicable; Y99.9 Unspecified external cause status; Z79.899 Other long term (current) drug therapy; F17.210 Nicotine dependence, cigarettes, uncomplicated; Z71.6 Tobacco abuse counseling
CPT/HCPCS: 27752; 27810; 73590; 73600; 73620; 96374; 96375; 96376; 99283; 99284; J1170

== ENCOUNTER 2022-06-12 12:08 | Emergency (ER) | payer OTHER, SELFPAY ==
[2022-06-12 12:42] VITALS: BP 130/85; PULSE 116; RESP 18; TEMP 36; O2SAT 97; BMI 58.4
[2022-06-12 14:34] VITALS: BP 130/85; PULSE 116; O2SAT 97
--- NOTE | 2022-06-12 14:41 | ED.GENADULT ---
HPI - General Adult General Chief complaint: Extremity Injury, Lower Stated complaint: Pain from broken feet L&R Time Seen by Provider: 06/12/22 13:40 Source: patient Mode of arrival: ambulatory Limitations: no limitations History of Present Illness HPI narrative: 37-year-old female presents to ED requesting commode or wheelchair to accommodate her head home. Patient status post right ankle fracture dislocation reduction and also has left 5th metatarsal fracture. Patient states she was prescribed wheelchair but as per they have not received yet the wheelchair from pharmacy. She states due to not having a wheelchair she has to move around with the computer chair to the bathroom. Patient would like a wheelchair and commode. Patient able to get up from chair to the toilet and her left foot is stable as per patient. Patient denies any increased pain or swelling of lower extremities. Patient denies any bluish black discoloration of toes. Patient denies any calf pain chest pain or shortness of breath. Patient denies any stiffness and lower extremities. Related Data Previous Rx's Medication Instructions Recorded cyclobenzaprine 10 mg tablet 10 mg PO BEDTIME #14 tabs 11/05/21 meloxicam 15 mg tablet 15 mg PO DAILY #14 tabs 11/05/21 amoxicillin 875 mg-potassium 1 tab PO BID 10 days #20 tabs 01/14/22 clavulanate 125 mg tablet gabapentin 800 mg tablet 800 mg PO TID #90 tabs 05/08/22 chair, wheel (Wheel chair) #1 ea 06/09/22 oxycodone-acetaminophen 5 mg-325 1 tab PO Q6H PRN pain #30 tabs 06/09/22 mg tablet (Percocet) chair, wheel (Wheel chair) #1 ea 06/12/22 commode (bedside commode) #1 ea 06/12/22 Allergies Allergy/AdvReac Type Severity Reaction Status Date / Time cephalexin [From KEFLEX] AdvReac Intermediate NAUSEA & Verified 06/12/22 12:49 VOMITING duloxetine [From CYMBALTA] AdvReac Intermediate NAUSEA & Verified 06/12/22 12:49 VOMITING Review of Systems Review of Systems: right ankle fracture and left foot fracture Yes all other systems are reviewed and are negative PMFSH Past Medical History Medical History Bimalleolar ankle fracture Fibromyalgia Metatarsal bone fracture Morbid obesity with BMI of 50.0-59.9, adult Post traumatic stress disorder (PTSD) Smoker Surgical History History of laparoscopic cholecystectomy (~2007) Social History Social History Housing: Apartment Alcohol intake: never Patient Tobacco Use Status: Current everyday Tobacco user Cigarettes Per Day: 10 Second Hand Smoke Exposure: Yes Substance Use Type: Marijuana Advance Directives: No Advance Directives Information Provided: No service: No Current occupational status: student Sexual orientation: Straight/Heterosexual Gender identity: Female Cognitive needs: No Hearing needs: No Vision needs: No Physical Exam ED Vital Signs: Vital Signs - 24 hr 06/12/22 12:42 06/12/22 14:34 Temperature 96.8 F Pulse Rate 116 H 116 H Respiratory Rate 18 Blood Pressure 130/85 130/85 Pulse Oximetry 97 97 Oxygen Delivery Method Room Air BMI result Body Mass Index 58.4 Const General: cooperative, healthy appearing, comfortable, no acute distress, well developed, alert, awake and Physically active Orientation/consciousness: oriented to person, oriented to time and patient oriented x3 HENMT Head: Yes normal to inspection, Yes No palpable skull fracture present, Yes normocephalic, Yes atraumatic and No abrasion Eyes General: appearance normal, both eyes and all related structures Neck Neck: Yes normal visual inspection, Yes full ROM, Yes no lymphadenopathy, Yes no meningeal signs, Yes trachea midline, Yes supple, No anterior neck swelling and No tender Chest Chest palpation & inspection: normal inspection of the chest and normal palpation of entire chest wall Resp Effort & Inspection: normal respiratory effort and able to speak in complete sentences Auscultation: clear to auscultation bilaterally Cardio Jugular venous distension: no JVD Heart sounds: S1 normal heart sound present and S2 normal heart sound present GI Inspection: Yes normal to inspection and No abdominal wall ecchymosis Palpation (GI): Soft to palpation, not firm, nontender, no guarding and not rigid General: No CVA tenderness and Yes no CVA tenderness Back/Spine/Pelvis Back: no CVA tenderness, No CVA tenderness and No back tenderness Skin General skin exam: no rashes or lesions noted and elasticity normal Neuro General: oriented to person, oriented to time, patient oriented x3, tone normal, moves all extremities and no meningeal signs Cranial nerves: Yes CN's II-XII intact bilaterally Extrem Other: Right lower extremities: Toes normal color with capillary refills. And partially removed to examine right lower extremity negative for swelling, bluish black discoloration, skin tightness, redness, or calf tenderness. Patient has sensation in right lower extremity. Motor/neuro/vascular exam is intact. left lower extremity: Toes normal color with capillary refills. And partially removed to examine right lower extremity negative for swelling, bluish black discoloration, skin tightness, redness, or calf tenderness. Patient has sensation in left lower extremity. Motor, neuro, and vascular exam is intact Psych Appearance: grossly normal, well kempt and not disheveled Course Course Course Narrative: Discussed with adult protective caseworker Vicky for recommend physical therapy consult. Reevaluation(s) Reevaluation #1: Physical therapy consult evalauted states patient to be discharged with walking boot and wheel chair. general manager in training required a new wheelchair prescription and she will sent herself to [facility] to expedite wheelchair being sent home. [employer] prescription was sent. Not suspecting compartment syndrome, DVT, cellulitis,or new fracture. Time: 14:47 Reevaluation #2: While trying to ambulate with crutches and walking boot patient fell onto her buttocks. Patient did not hit head. Patient denies any loss of consciousness. Negative for any sacral or spine tenderness. New splint was placed on left lower extremity. Patient is safe for discharge. No new imaging indicated Time: 16:52 Medical Decision Making MDM Narrative Medical decision making narrative: Pain from fracture Discharge Plan Discharge Clinical Impression: Ankle fracture, Metatarsal bone fracture Patient Disposition: Home, Self-Care Instructions: Ankle Fracture (ED), Foot Fracture in Adults (ED) Additional Instructions: You were sent a new prescription for wheelchair and commode. Please follow-up with orthopedic surgeon. Continue taking pain med as needed. Return to the ED immediately for any leg swelling, redness, blue and black discoloration, hotness, cold this, numbness, paralysis, chest pain, shortness of breath, or any other concerning symptoms. Prescriptions: New (DME) Wheel chair Kit See Rx Instructions .Route Qty: 1 0RF Rx Instructions: As directed (DME) bedside commode Kit See Rx Instructions .Route Qty: 1 0RF Rx Instructions: As directed No Action gabapentin 800 mg tablet 800 mg PO TID Qty: 90 0RF oxycodone-acetaminophen [Percocet] 5-325 mg tablet 1 tab PO Q6H PRN (Reason: pain) Qty: 30 0RF Rx Instructions: Partial Fill upon patient request. (DME) Wheel chair Kit See Rx Instructions .Route Qty: 1 0RF Rx Instructions: As directed cyclobenzaprine 10 mg tablet 10 mg PO BEDTIME Qty: 14 0RF meloxicam 15 mg tablet 15 mg PO DAILY Qty: 14 0RF amoxicillin-pot clavulanate 875-125 mg tablet 1 tab PO BID 10 Days Qty: 20 0RF Referrals: Drew Syed MD [Physician] - (Right ankle fracture and left foot metatarsal fracture) Interventions: ED Discharge Assessment Last Done: 06/12/22 16:59 Discharge Date/Time: 06/12/22 17:00 Print Language: Thai
--- NOTE | 2022-06-12 15:24 | MHC.CM.ED ---
Received case management consult from Reed DAN. Patient was previous in ER with bilateral ankle fractures. Patient returned today. Physical therapy eval completed. Need very well with physical therapy. Patient and sig other requesting bed side commode and wheelchair. Prescriptions printed and signed by Reed. T/W faxed scripts to Margot Domingo of [facility] [place] [facility] office. Paper scripts provided to patient. Patient's sig other will transport her home when he is done with his doctor's appointment. Continue to monitor for d/c needs.
[2022-06-12] MEDS: traMADoL HCL 50 MG TABLET PO (16:37)
--- NOTE | 2022-06-12 16:56 | PC.NURSE ---
pt attempted to ambulate with the use of a walking boot adn crutches for support. pt lost attempted to reverse direction with the crutches, she then lost her balance and fell onto her backside. Pt was seen by NI Tovar, left ankle resplinted in posterior short leg splint. no head strike, neuros intact, alert oriented NAD on discharge
== END 2022-06-12 17:00 | disposition home or self-care (01) ==
PROVIDERS: Emergency Provider Student in an Organized Health Care Education/Training Program; PCP Internal Medicine
DX: S82.891D Other fracture of right lower leg, subsequent encounter for closed fracture with routine healing (principal); S92.352D Displaced fracture of fifth metatarsal bone, left foot, subsequent encounter for fracture with routine healing; X58.XXXD Exposure to other specified factors, subsequent encounter
CPT/HCPCS: 97162; 99283; 99284

== ENCOUNTER 2022-06-16 13:14 | Emergency (ER) | payer OTHER, SELFPAY ==
[2022-06-16] VITALS (7 sets, daily range): BP systolic 137–151; BP diastolic 80–104; PULSE 73–110; RESP 13–19; TEMP 36.8–37.2; O2SAT 95–99; BMI 58.4
--- NOTE | ~2022-06-16 | CT_ITS ---
EXAMINATION: CTA CHEST CT ABDOMEN AND PELVIS WITH CONTRAST CLINICAL INFORMATION: Shortness of breath. Abdominal pain. COMPARISON: None. TECHNIQUE: A noncontrast localizer was performed, followed by the administration of 100 mL Omnipaque [address] of the chest was then performed. Coronal and sagittal reformatted and 3-D technique MIP images of the chest were completed at the CT scanner and reviewed on the PACS workstation. No adverse effects were reported. Images were then performed through the abdomen and pelvis. Coronal and sagittal reformatted images performed at CT scanner by technologist. [This CT examination was performed using dose optimization techniques as appropriate, variously including the following: *Automated exposure control *Adjustment of mA and/or kV according to patient size (this includes techniques or standardized protocols for targeted exams where dose is matched to indication/reason for exam; i.e. extremities or head) *Use of iterative reconstruction technique] DLP: 1860 mGy-cm. FINDINGS: CTA CHEST Vascular: The main pulmonary artery, secondary and tertiary branches of the pulmonary artery are normally opacified with no evidence of pulmonary embolism. The aorta and great vessels are unremarkable. Mediastinum: No mediastinal mass. No significant lymphadenopathy. There is no pericardial effusion. Lungs: The lungs are clear. No nodule or infiltrate. Central bronchial airways open. Fluid: There is no pericardial effusion. There is no pleural effusion. Axilla: No significant lymphadenopathy. CT SCAN ABDOMEN/PELVIS: Liver, Gallbladder and Biliary Tree: The liver is normal in size, shape, and attenuation. No focal hepatic lesion or biliary ductal dilatation is present. Status post cholecystectomy Pancreas: Unremarkable. Spleen: Unremarkable. Adrenal Glands: Unremarkable. Kidneys and Ureters: The kidneys are normal in size, shape, and attenuation. No hydronephrosis, hydroureter, or calculi seen. No perinephric stranding. Bladder: Unremarkable. Gastrointestinal Tract: The small and large bowel are unremarkable. The appendix is unremarkable. Abdominal Wall: No significant hernia is appreciated. Lymph Nodes: Normal. Vascular: Unremarkable. Pelvic Viscera: Unremarkable. Osseous Structures: Unremarkable. CT/CT abdomen pelvis w IV con IMPRESSION: 1. No evidence of pulmonary embolism. No acute abnormality of the chest. 2. No acute abnormality the abdomen or the pelvis.
[2022-06-16] MEDS: Ondansetron ODT 4 MG TAB.RAPDIS TRANSLINGU (13:42)
--- NOTE | 2022-06-16 14:17 | ED.GENADULT ---
HPI - General Adult General Chief complaint: Nausea/Vomiting/Diarrhea <NI Dasilva - Last Filed: 06/16/22 17:57> Stated complaint: Vomiting <NI Dasilva - Last Filed: 06/16/22 17:57> Time Seen by Provider: 06/16/22 14:17 <NI Dasilva Last Filed: 06/16/22 17:57> Source: patient <NI Dasilva Last Filed: 06/16/22 17:57> Mode of arrival: ambulatory <NI Dasilva Last Filed: 06/16/22 17:57> Limitations: no limitations <NI Dasilva Last Filed: 06/16/22 17:57> History of Present Illness HPI narrative: Patient is a 37 year old female presenting to the emergency department today with bilateral ankle pain, right lower quadrant abdominal pain, nausea, and vomiting. Patient states that she was seen here last week for bilateral broken ankles after she tripped. Patient states that she was doing fine at home with the pain medication she was prescribed then she started vomiting last night and now she is not able to keep anything down.Patient denies any dizziness, lightheadedness, fever, chills, blurry vision, double vision, loss of vision, chest pain, difficulty breathing, shortness of breath, back pain, night sweats, pain with urination, increased urinary frequency, increased urinary urgency, blood in her urine or stool, syncope or a near syncopal episode, recent trauma or falls, bowel incontinence, bladder incontinence, bowel retention, bladder retention, or any other complaints at this time. <NI Dasilva - Last Filed: 06/16/22 17:57> Onset (ago): hour(s) <NI Dasilva - Last Filed: 06/16/22 17:57> Location: abdomen, left, right and lower extremity <NI Dasilva - Last Filed: 06/16/22 17:57> Radiation: non-radiation <NI Dasilva - Last Filed: 06/16/22 17:57> Severity: mild <NI Dasilva Last Filed: 06/16/22 17:57> Severity scale (1-10): 4 <NI Dasilva Last Filed: 06/16/22 17:57> Quality: dull <NI Dasilva Last Filed: 06/16/22 17:57> Pain Consistency: constant <NI Dasilva Last Filed: 06/16/22 17:57> Relieving factors: none <NI Dasilva Last Filed: 06/16/22 17:57> Exacerbating factors: none <NI Dasilva Last Filed: 06/16/22 17:57> Associated symptoms: nausea/vomiting <NI Dasilva Last Filed: 06/16/22 17:57> Treatments prior to arrival: none <NI Dasilva Last Filed: 06/16/22 17:57> Related Data Home medications: Previous Rx's Medication Instructions Recorded cyclobenzaprine 10 mg tablet 10 mg PO BEDTIME #14 tabs 11/05/21 meloxicam 15 mg tablet 15 mg PO DAILY #14 tabs 11/05/21 amoxicillin 875 mg-potassium 1 tab PO BID 10 days #20 tabs 01/14/22 clavulanate 125 mg tablet chair, wheel (Wheel chair) #1 ea 06/09/22 oxycodone-acetaminophen 5 mg-325 1 tab PO Q6H PRN pain #30 tabs 06/09/22 mg tablet (Percocet) chair, wheel (Wheel chair) #1 ea 06/12/22 commode (bedside commode) #1 ea 06/12/22 gabapentin 800 mg tablet 800 mg PO TID #90 tabs 06/12/22 <NI Dasilva Last Filed: 06/16/22 17:57> Allergies/adverse reactions: Allergies Allergy/AdvReac Type Severity Reaction Status Date / Time cephalexin [From KEFLEX] AdvReac Intermediate NAUSEA & Verified 06/12/22 12:49 VOMITING duloxetine [From CYMBALTA] AdvReac Intermediate NAUSEA & Verified 06/12/22 12:49 VOMITING <NI Dasilva Last Filed: 06/16/22 17:57> Review of Systems Constitutional: Constitutional: Reports no additional constitutional complaints, Denies chills, Denies fever(s) and Denies night sweats <NI Dasilva Last Filed: 06/16/22 17:57> Eyes: Eyes: Reports no additional eye complaints, Denies blurry vision, Denies change in vision, Denies diplopia, Denies eye discharge, Denies loss of vision and Denies eye pain <NI Dasilva Last Filed: 06/16/22 17:57> ENT: Denies dizziness <NI Dasilva Last Filed: 06/16/22 17:57> Cardiovascular: Cardiovascular: Reports no additional cardiovascular complaints, Denies chest pain, Denies lightheadedness, Denies Loss of Consciousness and Denies dyspnea <NI Dasilva Last Filed: 06/16/22 17:57> Respiratory: Respiratory: Reports no additional respiratory complaints and Denies dyspnea <NI Dasilva Last Filed: 06/16/22 17:57> Gastrointestinal: Gastrointestinal: Reports no additional gastrointestinal complaints, Reports abdominal pain, Denies melena, Denies hematochezia, Denies change in bowel habits, Denies change in stool character, Reports nausea and Reports vomiting <NI Dasilva Last Filed: 06/16/22 17:57> Genitourinary: Genitourinary: Denies hematuria, Denies urinary frequency, Denies dysuria, Denies urinary incontinence, Denies urinary hesitancy and Denies urinary urgency <NI Dasilva Last Filed: 06/16/22 17:57> Musculoskeletal: Musculoskeletal: Reports no additional musculoskeletal complaints, Denies numbness and Denies tingling <NI Dasilva Last Filed: 06/16/22 17:57> Comments: Bilateral ankle pain <NI Dasilva Last Filed: 06/16/22 17:57> Neurologic: Denies dizziness, Denies loss of vision, Denies numbness and Denies tingling <NI Dasilva Last Filed: 06/16/22 17:57> Psychiatric: Psychiatric: Reports no additional psychiatric complaints <NI Dasilva Last Filed: 06/16/22 17:57> Endocrine: Endocrine: Reports no additional endocrine complaints <NI Dasilva Last Filed: 06/16/22 17:57> Hematologic/Lymphatic: Hematologic/Lymphatic: Reports no additional hematologic/lymphatic complaints <NI Dasilva Last Filed: 06/16/22 17:57> Allergic/Immunologic: Allergic/Immunologic: Reports no additional allergic/immunologic complaints <NI Dasilva - Last Filed: 06/16/22 17:57> [facility] Past Medical History Attestation statement: The following information was validated with the patient. <NI Dasilva - Last Filed: 06/16/22 17:57> Source: old records reviewed <NI Dasilva - Last Filed: 06/16/22 17:57> Medical History: Medical History Bimalleolar ankle fracture Fibromyalgia Metatarsal bone fracture Morbid obesity with BMI of 50.0-59.9, adult Post traumatic stress disorder (PTSD) Smoker <NI Dasilva - Last Filed: 06/16/22 17:57> Surgical History: Surgical History History of laparoscopic cholecystectomy (~2007) <NI Dasilva - Last Filed: 06/16/22 17:57> Social History Social History: Social History Housing: Apartment Alcohol intake: never Patient Tobacco Use Status: Current everyday Tobacco user Cigarettes Per Day: 10 Second Hand Smoke Exposure: Yes Use of substances other than those prescribed or required for medical reasons: Yes Substance Use Type: Marijuana Substance Use Frequency: Daily Advance Directives: No Advance Directives Information Provided: No Patient : No service: No Current occupational status: student Sexual orientation: Straight/Heterosexual Gender identity: Female Cognitive needs: No Hearing needs: No Vision needs: No <NI Dasilva - Last Filed: 06/16/22 17:57> Physical Exam ED Vital Signs: Vital Signs - 24 hr 06/16/22 13:38 06/16/22 14:21 06/16/22 16:38 Temperature 98.9 F 98.2 F 98.2 F Pulse Rate 110 H 108 H 83 Respiratory Rate 18 18 16 Blood Pressure 151/104 H 138/92 H 141/80 H Pulse Oximetry 97 96 95 Oxygen Delivery Method Room Air Room Air Room Air Oxygen Flow Rate 06/16/22 16:46 06/16/22 17:47 06/16/22 18:34 Temperature Pulse Rate 73 Respiratory Rate 17 19 13 Blood Pressure 142/93 H Pulse Oximetry 95 Oxygen Delivery Method Nasal Cannula Oxygen Flow Rate 2 BMI result Body Mass Index 58.4 <NI Dasilva Last Filed: 06/16/22 17:57> Vital Signs - 24 hr 06/16/22 13:38 06/16/22 14:21 06/16/22 16:38 Temperature 98.9 F 98.2 F 98.2 F Pulse Rate 110 H 108 H 83 Respiratory Rate 18 18 16 Blood Pressure 151/104 H 138/92 H 141/80 H Pulse Oximetry 97 96 95 Oxygen Delivery Method Room Air Room Air Room Air Oxygen Flow Rate 06/16/22 16:46 06/16/22 17:47 06/16/22 18:34 Temperature Pulse Rate 73 Respiratory Rate 17 19 13 Blood Pressure 142/93 H Pulse Oximetry 95 Oxygen Delivery Method Nasal Cannula Oxygen Flow Rate 2 BMI result Body Mass Index 58.4 <NI Chopra Last Filed: 06/16/22 18:58> Const General: cooperative, no acute distress, alert and awake <NI Dasilva Last Filed: 06/16/22 17:57> Nutritional Appearance: well nourished <NI Dasilva Last Filed: 06/16/22 17:57> Orientation/consciousness: patient oriented x3 <NI Dasilva Last Filed: 06/16/22 17:57> Limitations: no limitations <NI Dasilva Last Filed: 06/16/22 17:57> HENMT Head: Yes normal to inspection and Yes atraumatic <NI Dasilva Last Filed: 06/16/22 17:57> Ears: hearing grossly normal bilaterally and external ears normal <NI Dasilva Last Filed: 06/16/22 17:57> General nose exam: Normal external nose present, no nasal discharge noted and no epistaxis <NI Dasilva Last Filed: 06/16/22 17:57> Face and sinus: Yes normal facial exam, No abrasion and No laceration <NI Dasilva Last Filed: 06/16/22 17:57> Mouth: Normal oral and palatal mucosa present, no drooling and no muffled voice <NI Dasilva Last Filed: 06/16/22 17:57> Eyes General: appearance normal, both eyes and all related structures <Rajani AlvaNI sood - Last Filed: 06/16/22 17:57> Periorbital: periorbital findings normal <Rajani Kelly [place] - Last Filed: 06/16/22 17:57> Eyelids: Yes eyelids normal <Rajanisarah Alvabarrie [place] - Last Filed: 06/16/22 17:57> Conjunctivae: conjunctivae normal <Rajani Kelly [place] - Last Filed: 06/16/22 17:57> Pupils: Equal, round and reactive pupils present <Rajani Alvabarrie [place] - Last Filed: 06/16/22 17:57> EOM: EOMs intact bilaterally <Rajani AlvaNI sood - Last Filed: 06/16/22 17:57> Neck Neck: Yes normal visual inspection, Yes full ROM and Yes no lymphadenopathy <Rajanisarah AlvaNI sood - Last Filed: 06/16/22 17:57> Chest Chest palpation & inspection: normal inspection of the chest <Rajanisarah Alvabarrie [place] - Last Filed: 06/16/22 17:57> Resp Effort & Inspection: normal respiratory effort and able to speak in complete sentences <Rajanisarah AlvaNI sood - Last Filed: 06/16/22 17:57> Auscultation: clear to auscultation bilaterally <Rajani Alvabarrie [place] - Last Filed: 06/16/22 17:57> Cardio Rate: tachycardic <Rajanisarah Alvabarrie [place] - Last Filed: 06/16/22 17:57> Rhythm: regular rhythm <Rajani Alvabarrie [place] - Last Filed: 06/16/22 17:57> GI Inspection: Yes normal to inspection <Rajanisarah Alvabarrie [place] - Last Filed: 06/16/22 17:57> Palpation (GI): Soft to palpation, not firm, nontender and no guarding <Rajani AlvaNI sood - Last Filed: 06/16/22 17:57> Neuro General: patient oriented x3 and moves all extremities <Rajanisarah AlvaNI sood - Last Filed: 06/16/22 17:57> Cranial nerves: Yes Equal, round and reactive pupils present <RajaniNI Guy - Last Filed: 06/16/22 17:57> Cognition (Neuro): normal cognition <Rajanisarah AlvaNI sood - Last Filed: 06/16/22 17:57> Motor exam (neuro): 5/5 motor strength present throughout <Rajanisarah AlvaNI sood - Last Filed: 06/16/22 17:57> Sensory Exam: Normal double simultaneous stimulation for sensation <NI Dasilva - Last Filed: 06/16/22 17:57> Coordination: [id number] test normal <Rajani KellyNI sood - Last Filed: 06/16/22 17:57> Extrem Other: Bilateral posterior leg splints <Rajani KellyNI sood - Last Filed: 06/16/22 17:57> General: Yes full ROM and Yes capillary refill normal <Rajani KellyNI sood - Last Filed: 06/16/22 17:57> Psych Appearance: grossly normal <NI Dasilva - Last Filed: 06/16/22 17:57> Mental Status: mental status grossly normal <NI Dasilva Last Filed: 06/16/22 17:57> Affect: normal affect <NI Dasilva - Last Filed: 06/16/22 17:57> Attitude: cooperative <NI Dasilva - Last Filed: 06/16/22 17:57> Thought process: Normal thought process present <NI Dasilva Last Filed: 06/16/22 17:57> Thought content: Normal thought content present <NI Dasilva Last Filed: 06/16/22 17:57> Insight: Good insight present (Psych) <NI Dasilva - Last Filed: 06/16/22 17:57> Course Reevaluation(s) Reevaluation #1: CTA with out pulmonary embolism. No acute abnormality in the chest. CT of the abdomen and pelvis with no acute findings. Patient no longer having nausea or vomiting. At this time patient will be discharged home advised to return with new or worsening symptoms. Outlined worrisome signs and symptoms on discharge and when to return. Comfortable discharge home. <NI Chopra Last Filed: 06/16/22 18:58> Time: 18:57 <IN Chopra Last Filed: 06/16/22 18:58> Medical Decision Making MDM Narrative Medical decision making narrative: Patient is a 37 year old female presenting to the emergency department today with nausea, vomiting and RLQ abdominal pain. Patient's physical exam showed tachycardia but was otherwise unremarkable. Patient's blood work showed a slightly elevated white blood cell count, however I believe this to be reactive. Patient's abdominal CT scan and chest/PE CT are pending. Patient signed out to Georgina DAN. <NI Dasilva - Last Filed: 06/16/22 17:57> Lab Data Lab results reviewed: Yes I reviewed the patient's lab results. <NI Dasilva - Last Filed: 06/16/22 17:57> Result diagrams: : 06/16/22 14:35 06/16/22 16:10 <NI Dasilva - Last Filed: 06/16/22 17:57> Labs: Lab Results 06/16/22 06/16/22 Range/Units 14:35 16:10 WBC 11.8 H (4.8-10.8) X10*3/uL RBC 5.76 H (4.20-5.50) X10*6/uL Hgb 16.1 H (12.0-16.0) g/dl Hct 48.1 H (37.0-47.0) % MCV 83.5 (80.0-98.0) fL MCH 28.0 (27.0-33.0) pg MCHC 33.5 (31.0-35.0) g/dl RDW 13.4 (11.0-16.0) % Plt Count 312 (160-400) X10*3/uL MPV 11.0 (9.4-12.3) fL Immature Gran % (Auto) 0.4 (0.0-0.4) % Neut % (Auto) 84.9 H (45-73) % Lymph % (Auto) 9.8 L (20-40) % [place] % (Auto) 4.6 (2-11) % Eos % (Auto) 0.0 (0-4) % Baso % (Auto) 0.3 (0-2) % Lymph # (Auto) 1.2 (1.2-4.9) X10*3/uL [place] # (Auto) 0.5 (0.1-1.2) X10*3/uL Eos # (Auto) 0.0 (0.0-0.4) X10*3/uL Baso # (Auto) 0.0 (0.0-0.2) X10*3/uL Abs Immat Gran (auto) 0.05 H (0.00-0.03) X10*3/uL Absolute Neuts (auto) 10.0 H (2.0-8.3) x10*3/uL Absolute Nucleated RBC 0.000 (0.0-0.012) X10*3/uL Nucleated RBC % (auto) 0.0 (0.0-0.2) /100WBC Sodium 140 (135-145) mmol/L Potassium 3.4 (3.3-5.1) mmol/L Chloride 103 (96-108) mmol/L Carbon Dioxide 25 (22-29) mmol/L Anion Gap 15 (12-20) BUN 10 (9-16) mg/dL Creatinine 0.81 (0.5-1.4) mg/dL Estim Creat Clear Calc 139.7 Estimated GFR > 60 Random Glucose 144 H (60-115) mg/dL Calcium 8.9 (8.4-10.2) mg/dL Magnesium 1.9 (1.6-2.6) mg/dL Total Bilirubin 0.6 (0.0-1.0) mg/dL AST 21 (5-31) U/L ALT 19 (0-31) U/L Alkaline Phosphatase 101 (39-117) U/L Total Protein 6.6 (6.5-8.0) g/dL Albumin 3.9 (3.5-5.0) g/dL Beta HCG, Quant < 2 mIU/mL <NI Dasilva - Last Filed: 06/16/22 17:57> Lab Results 06/16/22 06/16/22 Range/Units 14:35 16:10 WBC 11.8 H (4.8-10.8) X10*3/uL RBC 5.76 H (4.20-5.50) X10*6/uL Hgb 16.1 H (12.0-16.0) g/dl Hct 48.1 H (37.0-47.0) % MCV 83.5 (80.0-98.0) fL MCH 28.0 (27.0-33.0) pg MCHC 33.5 (31.0-35.0) g/dl RDW 13.4 (11.0-16.0) % Plt Count 312 (160-400) X10*3/uL MPV 11.0 (9.4-12.3) fL Immature Gran % (Auto) 0.4 (0.0-0.4) % Neut % (Auto) 84.9 H (45-73) % Lymph % (Auto) 9.8 L (20-40) % [place] % (Auto) 4.6 (2-11) % Eos % (Auto) 0.0 (0-4) % Baso % (Auto) 0.3 (0-2) % Lymph # (Auto) 1.2 (1.2-4.9) X10*3/uL [place] # (Auto) 0.5 (0.1-1.2) X10*3/uL Eos # (Auto) 0.0 (0.0-0.4) X10*3/uL Baso # (Auto) 0.0 (0.0-0.2) X10*3/uL Abs Immat Gran (auto) 0.05 H (0.00-0.03) X10*3/uL Absolute Neuts (auto) 10.0 H (2.0-8.3) x10*3/uL Absolute Nucleated RBC 0.000 (0.0-0.012) X10*3/uL Nucleated RBC % (auto) 0.0 (0.0-0.2) /100WBC Sodium 140 (135-145) mmol/L Potassium 3.4 (3.3-5.1) mmol/L Chloride 103 (96-108) mmol/L Carbon Dioxide 25 (22-29) mmol/L Anion Gap 15 (12-20) BUN 10 (9-16) mg/dL Creatinine 0.81 (0.5-1.4) mg/dL Estim Creat Clear Calc 139.7 Estimated GFR > 60 Random Glucose 144 H (60-115) mg/dL Calcium 8.9 (8.4-10.2) mg/dL Magnesium 1.9 (1.6-2.6) mg/dL Total Bilirubin 0.6 (0.0-1.0) mg/dL AST 21 (5-31) U/L ALT 19 (0-31) U/L Alkaline Phosphatase 101 (39-117) U/L Total Protein 6.6 (6.5-8.0) g/dL Albumin 3.9 (3.5-5.0) g/dL Beta HCG, Quant < 2 mIU/mL <NI Chopra - Last Filed: 06/16/22 18:58> Discharge Plan Discharge Clinical Impression: Nausea & vomiting <NI Dasilva Last Filed: 06/16/22 17:57> Instructions: Acute Nausea and Vomiting (ED) <NI Dasilva - Last Filed: 06/16/22 17:57> Additional Instructions: Follow up with your primary care provider. Return to the emergency department immediately if your symptoms worsen or if you develop any dizziness, shortness of breath, difficulty breathing, chest pain, blurry vision, loss of vision, nausea, vomiting, abdominal pain, fever, chills, back pain, or any other complaints. In case of emergency call 911 <NI Dasilva Last Filed: 06/16/22 17:57> Prescriptions: No Action gabapentin 800 mg tablet 800 mg PO TID Qty: 90 0RF (DME) Wheel chair Kit See Rx Instructions .Route Qty: 1 0RF Rx Instructions: As directed (DME) bedside commode Kit See Rx Instructions .Route Qty: 1 0RF Rx Instructions: As directed oxycodone-acetaminophen [Percocet] 5-325 mg tablet 1 tab PO Q6H PRN (Reason: pain) Qty: 30 0RF Rx Instructions: Partial Fill upon patient request. (DME) Wheel chair Kit See Rx Instructions .Route Qty: 1 0RF Rx Instructions: As directed cyclobenzaprine 10 mg tablet 10 mg PO BEDTIME Qty: 14 0RF meloxicam 15 mg tablet 15 mg PO DAILY Qty: 14 0RF amoxicillin-pot clavulanate 875-125 mg tablet 1 tab PO BID 10 Days Qty: 20 0RF <NI Dasilva Last Filed: 06/16/22 17:57> Referrals: Fawad,Kelvin S, MD [Primary Care Provider] - <NI Dasilva - Last Filed: 06/16/22 17:57> Print Language: Welsh <NI Dasilva - Last Filed: 06/16/22 17:57>
[2022-06-16] MEDS: Morphine Sulfate 4 MG/ML CARTRIDGE IVPUSH (14:39)
[2022-06-16] MEDS: ondansetron HCL 4 MG/2 ML VIAL IVPUSH (14:39)
[2022-06-16] MEDS: 0.9 % Sodium Chloride 1,000 ML 999 ML IV ×2 (14:40→16:47)
--- NOTE | 2022-06-16 14:43 | PC.NURSE ---
patient a&ox3, vss, pt vomiting small amount of emesis, iv inserted, labs drawn, pt medicated for 8/10 abd pain and nausea, ivf running per order, call finley within reach, will continue to monitor float nurse
[2022-06-16 14:47] LABS: MANUAL DIFF FLAG NO
[2022-06-16 14:48] LABS: Basophils Percent Auto 0.3 % (0-2); Hematocrit 48.1 % (37.0-47.0); Hemoglobin 16.1 g/dl (12.0-16.0); Imm Gran Abs Auto 0.05 X10*3/uL (0.00-0.03); Imm Gran Pct Auto 0.4 % (0.0-0.4); Lymphocytes Absolute Auto 1.2 X10*3/uL (1.2-4.9); Lymphocytes Percent Auto 9.8 % (20-40); Mean Corpuscular HGB Conc 33.5 g/dl (31.0-35.0); Mean Corpuscular Volume 83.5 fL (80.0-98.0); Monocytes Absolute Auto 0.5 X10*3/uL (0.1-1.2); Monocytes Percent Auto 4.6 % (2-11); Neutrophils Percent Auto 84.9 % (45-73); Platelet Count 312 X10*3/uL (160-400); Red Blood Count 5.76 X10*6/uL (4.20-5.50); Red Cell Distribution Width 13.4 % (11.0-16.0); White Blood Count 11.8 X10*3/uL (4.8-10.8)
[2022-06-16] MEDS: Metoclopramide HCl 10 MG/2 ML VIAL IVPUSH (15:12)
[2022-06-16 16:33] LABS: Alanine Aminotransferase 19 U/L (0-31); Albumin Level 3.9 g/dL (3.5-5.0); Alkaline Phosphatase 101 U/L (39-117); Anion Gap 15 (12-20); Aspartate Amino Transferase 21 U/L (5-31); Bilirubin Total 0.6 mg/dL (0.0-1.0); Blood Urea Nitrogen 10 mg/dL (9-16); Calcium 8.9 mg/dL (8.4-10.2); Carbon Dioxide 25 mmol/L (22-29); Chloride 103 mmol/L (96-108); Creatinine Clr Calc Pharmacy 139.7; Estimated Glomerular Filt Rate > 60; Glucose Random 144 mg/dL (60-115); Magnesium 1.9 mg/dL (1.6-2.6); Potassium 3.4 mmol/L (3.3-5.1); Sodium 140 mmol/L (135-145); Total Protein 6.6 g/dL (6.5-8.0)
[2022-06-16 16:45] LABS: HCG Quantitative < 2 mIU/mL
[2022-06-16] MEDS: Midazolam HCl/PF 2 MG/2 ML VIAL 1 MG IVPUSH (16:45)
[2022-06-16] MEDS: HYDROmorphone HCl 1 MG/ML SYRINGE IVPUSH (16:46)
--- NOTE | 2022-06-16 17:33 | PC.NURSE ---
Following CT scan wth contrast patient reported she felt shaky and nauseous. NI Gerard made aware
[2022-06-16] MEDS: iohexoL 350 MG/ML 100 ML INFUS..BTL IV (17:34)
--- NOTE | 2022-06-16 17:49 | PC.NURSE ---
Patients O2 sats dropped to 88-89 following versed and dilaudid. Provider aware. Instructed to put patient on 2L supplemental oxygen.
[2022-06-16 19:19] LABS: Lipase 9 U/L (8-78)
== END 2022-06-16 20:07 | disposition home or self-care (01) ==
PROVIDERS: Physician Assistant; Physician Assistant Medical; Emergency Provider Emergency Medicine; PCP Internal Medicine
DX: R11.2 Nausea with vomiting, unspecified (principal); R00.0 Tachycardia, unspecified; M25.572 Pain in left ankle and joints of left foot; M25.571 Pain in right ankle and joints of right foot; F17.210 Nicotine dependence, cigarettes, uncomplicated
CPT/HCPCS: 36415; 71275; 74177; 80053; 83690; 83735; 84702; 85025; 96361; 96374; 96375; 99284; J1170; J2250; J2270; J2405; J2765; Q9967

== ENCOUNTER → 2022-06-19 13:03 | Outpatient (BNVA) | payer OTHER, SELFPAY | PROVIDERS: PCP Internal Medicine; Visit Provider Physician Assistant | DX: S82.841A Displaced bimalleolar fracture of right lower leg, initial encounter for closed fracture (principal); S92.352A Displaced fracture of fifth metatarsal bone, left foot, initial encounter for closed fracture | CPT/HCPCS: 99202 ==

== ENCOUNTER 2022-06-24 13:46 | Day surgery (SDC) | payer OTHER, SELFPAY ==
--- NOTE | 2022-06-23 09:50 | HO.ANESPROP2 ---
Documented by User: Dorcas Juarez NP 06/23/22 09:51 HPI - Anesthesia Eval Consult details Narrative: 37yo F for Right Ankle Fracture ORIF PMFSH Active Problems Active Problems: All Active Problems (Updated 06/19/22 @ 14:29 by Yessy Duff) Fracture of base of fifth metatarsal bone of left foot (Acute) Bimalleolar fracture of right ankle (Acute) Ankle fracture (Acute) Metatarsal bone fracture (Acute) Morbid obesity with BMI of 50.0-59.9, adult (Acute) Fibromyalgia (Acute) Smoker (Acute) Tympanic membrane inflammation (Acute) Pulsatile tinnitus of left ear (Acute) Low back pain (Acute) Attention deficit (Acute) Post traumatic stress disorder (PTSD) (Acute) COVID-19 (Acute) Ectopic (Acute) Bleeding in early (Acute) Past Medical History Medical History Bimalleolar ankle fracture Fibromyalgia Metatarsal bone fracture Morbid obesity with BMI of 50.0-59.9, adult Post traumatic stress disorder (PTSD) Smoker Surgical History Surgical History History of laparoscopic cholecystectomy (~2007) Social History Social History Housing: Apartment Alcohol intake: never Patient Tobacco Use Status: Current everyday Tobacco user Tobacco use type: Cigarette Cigarettes Per Day: 10 Second Hand Smoke Exposure: Yes Use of substances other than those prescribed or required for medical reasons: Yes Substance Use Type: Marijuana Are you DNR?: No Advance Directives: No Advance Directives Information Provided: Yes service: No Current occupational status: student Sexual orientation: Straight/Heterosexual Gender identity: Female Cognitive needs: No Hearing needs: No Vision needs: No Meds Allergies Allergy/AdvReac Type Severity Reaction Status Date / Time cephalexin [From KEFLEX] AdvReac Intermediate NAUSEA & Verified 06/19/22 13:49 VOMITING duloxetine [From CYMBALTA] AdvReac Intermediate NAUSEA & Verified 06/19/22 13:49 VOMITING Exam Exam Date and Time: June 23, 2022 0950 Pertinent Lab Results Pertinent Lab Results: Laboratory Tests 06/16/22 06/16/22 14:35 16:10 WBC 11.8 H Hgb 16.1 H Hct 48.1 H Plt Count 312 Sodium 140 Potassium 3.4 Chloride 103 Carbon Dioxide 25 BUN 10 Creatinine 0.81 Assessment and Plan Assessment Anesthesia Assessment: Chart Reviewed Documented by User: Lex Robles MD 06/24/22 18:14 [facility] Past Medical History Medical History Bimalleolar ankle fracture Fibromyalgia Metatarsal bone fracture Morbid obesity with BMI of 50.0-59.9, adult Post traumatic stress disorder (PTSD) Smoker Functional capacity: independent ambulation Family History Family history of problems with anesthesia: No Surgical History Surgical History History of laparoscopic cholecystectomy (~2007) History of Problems with Anesthesia: No Social History Social History Housing: Apartment Alcohol intake: never Patient Tobacco Use Status: Current everyday Tobacco user Tobacco use type: Cigarette Cigarettes Per Day: 10 Second Hand Smoke Exposure: Yes Use of substances other than those prescribed or required for medical reasons: Yes Substance Use Type: Marijuana Are you DNR?: No Advance Directives: No Advance Directives Information Provided: Yes service: No Current occupational status: student Sexual orientation: Straight/Heterosexual Gender identity: Female Cognitive needs: No Hearing needs: No Vision needs: No Meds Allergies Allergy/AdvReac Type Severity Reaction Status Date / Time cephalexin [From KEFLEX] AdvReac Intermediate NAUSEA & Verified 06/19/22 13:49 VOMITING duloxetine [From CYMBALTA] AdvReac Intermediate NAUSEA & Verified 06/19/22 13:49 VOMITING Exam Airway Mallampati Class: III TM Dist: >3cm Loose/Missing/Broken Teeth: Yes (Extremely Poor dentition globally , fillings ) Heart: S1,S2 Lungs: distant breath sounds Assessment and Plan Assessment Anesthesia Assessment: Anesthesia Plan Discussed Final Anesthetic Review Family History of Problems with Anesthesia: No History of Problems with Anesthesia: No NPO: Yes ASA Class: III Final Preanesthetic Review: Meds/Allgs Chart Reviewed, Consent Obtained/Reviewed and Anes Risks/Benef Reviewed Patient Risk: Intermediate Procedure Risk: Intermediate Anesthetic Plan Anesthetic Plan: GA Disposition: Standard PACU
[2022-06-24] VITALS (15 sets, daily range): BP systolic 111–149; BP diastolic 74–98; PULSE 65–106; RESP 16; TEMP 36.2–36.7; O2SAT 94–99; BMI 58.4
--- NOTE | ~2022-06-24 | FL_ITS ---
EXAMINATION: XR FLUOROSCOPY WITH IMAGES CLINICAL INFORMATION: Right ankle fractures, reduction. COMPARISON: Right ankle radiographs 06/08/2022 TECHNIQUE: Fluoroscopy performed by Dr. Drew Syed. Fluoroscopy time: 0.4 minutes. Cumulative Dose: 2.88 mGy. DAP: 0.0501 Gy-cm2. Images: 3. FINDINGS: Orthopedic hardware overlying distal tibia and fibula are intact. There is no dislocation. Ankle mortise is symmetric. There is a minimally displaced fracture distal shaft fibula again noted. FL/FL guidance in OR IMPRESSION: Fluoroscopy for orthopedic procedure.
[2022-06-24 14:34] LABS: UPreg QC Valid YES; Urine Pregnancy NEGATIVE (NEGATIVE)
[2022-06-24] MEDS: Lactated Ringers 1,000 ML 100 ML IVCONT (14:53)
--- NOTE | 2022-06-24 17:46 | PM.OP ---
Brief Operative Note Date of Service: 06/24/22 Pre-op diagnosis: Right ankle trimalleolar fracture Post-op diagnosis: same Procedure: ORIF right syndesmosis ORIF right medial malleolus Implants: Styker lateral 2 hole butress plate Arthrex syndesmosis tightrope x 2 Tacos 4.0 partially threaded cannulated screws x 2 ( 40 mm) Surgeon: Drew Syed MD Anesthesia: GETA and local Was an Director Of Application Development used for this Procedure?: Yes Director Of Application Development: Moody Garcia Estimated blood loss (mL): 30 Tourniquet time (min): 50 IV fluids (mL): 1,000 Pathology: none sent Condition: stable Disposition: PACU
[2022-06-24] MEDS: HYDROmorphone HCl 0.5 MG/0.5 ML SYRINGE 0.25 MG IVPUSH ×2 (18:21→18:26)
--- NOTE | 2022-06-25 07:41 | W.PM.OPN ---
Operative Note Operative Note Date of Service: 06/24/22 Narrative: Date of Service: 06/24/22 Pre-op diagnosis: Right ankle trimalleolar fracture Post-op diagnosis: same Procedure: ORIF right syndesmosis ORIF right medial malleolus Implants: Styker lateral 2 hole butress plate Arthrex syndesmosis tightrope x 2 Tacos 4.0 partially threaded cannulated screws x 2 ( 40 mm) Surgeon: Drew Syed MD Anesthesia: GETA and local Was an Fabrication Welder used for this Procedure?: Yes Fabrication Welder: Moody Garcia Estimated blood loss (mL): 30 Tourniquet time (min): 50 IV fluids (mL): 1,000 Pathology: none sent Condition: stable Disposition: PACU Procedure in detail: Patient was brought to the operating room and placed supine on the operative table. All bony prominences were well padded and a time-out was called to identify proper site proper procedure proper surgeon. IV antibiotics per weight were administered. I began by exsanguinating limb is slightly tourniquet to 300 mm Hg. Biplanar fluoroscopy confirmed a trimalleolar fracture with near dislocation and an obviously dyfunctional syndesmosis. The fibular fracture was mid shaft and so a small medial and lateral incision was made and the syndesmosis was provisionally reduced with a large tenaculum. I then used a 2-hole lateral buttress plate and 2 Arthrex syndesmosis tightropes to maintain the syndesmotic reduction. Standard technique was used to drill from lateral to medial and posterior to anterior at an angle of approximately 20deg. The tightrope was placed bicortically and tightened. Once I was satisfied with this I extended the medial incision distally to access the medial malleolar fracture. The transverse medial malleolar fracture was identified after skin incision. Full-thickness skin flaps were developed and, With a sharp tenaculum, the fracture was reduced. 2 threaded K-wires were then placed from distal to proximal and perpendicular to the fracture. Biplanar fluoroscopy was used to confirm positioning and then they were overdrilled and 2 40 mm 4.0 partially-threaded cannulated cancellous screws were placed across the fracture. I was satisfied with the position and the fracture reduction based on biplanar fluoroscopy. This syndesmosis was tested using external rotation test and was found to be stable. THe small posterior malleolar fracture was not large enough to warrant fixation. Therefore all instrumentation was removed and copious irrigation was performed. Absorbable suture and fadia were used for closure and the patient was placed into sterile dressings and a well-padded posterior splint. Tourniquet was let down and the patient was extubated brought to recovery room in stable condition there were no known complications.
== END 2022-06-24 20:26 | disposition home or self-care (01) ==
PROVIDERS: Nurse Practitioner; PCP Internal Medicine; Visit Provider Orthopaedic Surgery
PROC: (CPT 27814; principal; 2022-06-24 15:00)
DX: S82.841A Displaced bimalleolar fracture of right lower leg, initial encounter for closed fracture (principal); S92.352A Displaced fracture of fifth metatarsal bone, left foot, initial encounter for closed fracture; W01.0XXA Fall on same level from slipping, tripping and stumbling without subsequent striking against object, initial encounter; Y93.01 Activity, walking, marching and hiking; Y92.9 Unspecified place or not applicable; Y99.8 Other external cause status; M79.7 Fibromyalgia; E66.01 Morbid (severe) obesity due to excess calories; Z68.43 Body mass index [BMI] 50.0-59.9, adult; F43.10 Post-traumatic stress disorder, unspecified; Z79.899 Other long term (current) drug therapy; Z88.1 Allergy status to other antibiotic agents; Z88.8 Allergy status to other drugs, medicaments and biological substances; F17.210 Nicotine dependence, cigarettes, uncomplicated; F12.90 Cannabis use, unspecified, uncomplicated
CPT/HCPCS: 27814; 27829; 81025; C1713; J0131; J0690; J1100; J1170; J2250; J2405; J2550; J2795; J3010

== ENCOUNTER 2022-07-07 07:40 | Outpatient (REF) | payer OTHER, SELFPAY ==
--- NOTE | ~2022-07-07 | XR_ITS ---
EXAMINATION: XR ANKLE, RIGHT CLINICAL INFORMATION: Pain. COMPARISON: X-rays of the right ankle May 2022 and 06/24/2022. TECHNIQUE: AP, lateral, and mortise views of the right ankle. FINDINGS: Postsurgical change redemonstrated with orthopedic hardware overlying the distal tibia and fibula. Skin fadia are also noted. The oblique displaced fracture of the distal fibula is redemonstrated with unchanged alignment compared with the intraoperative exams. Distal fragment displaced approximately 30% shaft width anteriorly and 10% shaft width laterally. Question slight widening of the medial aspect of the tibiotalar joint space and medial clear space but unchanged. Small ossific or calcific density noted along the medial aspect of the tibiotalar joint measuring 3.5 mm. Posterior malleolar fragment redemonstrated, unchanged. Minimal surrounding soft tissue prominence. XR/XR ankle RT min 3V IMPRESSION: Postoperative changes with stable alignment compared with the intraoperative images. Hardware intact. Possible intra-articular fragment/loose body in the talocrural joint.
== END 2022-07-07 07:41 | disposition home or self-care (01) ==
LOC: HO.HOSX 07:40
PROVIDERS: Visit Provider Physician Assistant
DX: S82.841D Displaced bimalleolar fracture of right lower leg, subsequent encounter for closed fracture with routine healing (principal)
CPT/HCPCS: 29405; 73610

== ENCOUNTER 2022-08-04 | Outpatient (REF) | payer OTHER, SELFPAY ==
--- NOTE | ~2022-08-04 | XR_ITS ---
EXAMINATION: XR ANKLE, RIGHT CLINICAL INFORMATION: Pain. COMPARISON: Radiograph of the right ankle dated from 07/07/2022. TECHNIQUE: AP, lateral, and mortise views of the right ankle. FINDINGS: Postsurgical changes redemonstrated with orthopedic hardware overlying the distal tibia and fibula. An obliquely displaced fracture of the distal fibula is not significantly changed in appearance or alignment compared to 07/07/2022. A horizontally oriented medial malleolar fracture is also not significantly changed. There is similar widening of the medial aspect of the tibiotalar joint with stable ossific/calcific body density noted along the medial aspect of the tibiotalar joint. Posterior malleolar fracture is unchanged. Similar degree of surrounding soft tissue thickening. XR/XR ankle RT min 3V IMPRESSION: No significant change in the appearance of the right ankle compared to 07/07/2022.
== END 2022-08-04 00:01 | disposition home or self-care (01) ==
LOC: HO.HOSX
PROVIDERS: Visit Provider Physician Assistant
DX: S82.841D Displaced bimalleolar fracture of right lower leg, subsequent encounter for closed fracture with routine healing (principal); X58.XXXD Exposure to other specified factors, subsequent encounter
CPT/HCPCS: 29405; 73610

== ENCOUNTER 2022-09-01 13:26 | Outpatient (REF) | payer OTHER, SELFPAY ==
--- NOTE | ~2022-09-01 | XR_ITS ---
EXAMINATION: XR ANKLE, RIGHT CLINICAL INFORMATION: Pain. Fracture. COMPARISON: Previous x-ray most recent July 2022 TECHNIQUE: AP, lateral, and mortise views of the right ankle. FINDINGS: Stable postsurgical changes with orthopedic hardware in the distal tibia and fibula. Increasing osteopenia. Stable appearance to the displaced distal fibular shaft fracture and medial malleolar fracture. No appreciable evidence of healing. Posterior malleolar fracture not well visualized. Widened medial ankle mortise. Diffuse soft tissue swelling. XR/XR ankle RT min 3V IMPRESSION: Stable appearance of the displaced distal fibular shaft fracture. Stable appearance of the medial malleolar fracture. No appreciable evidence of healing. Stable widening of the medial ankle mortise. Increasing osteopenia.
== END 2022-09-01 13:27 | disposition home or self-care (01) ==
LOC: HO.HOSX 13:26
PROVIDERS: Visit Provider Physician Assistant
DX: M25.571 Pain in right ankle and joints of right foot (principal)
CPT/HCPCS: 73610

== ENCOUNTER → 2022-10-20 13:38 | Outpatient (BNVA) | payer OTHER, SELFPAY | PROVIDERS: Visit Provider Physician Assistant | DX: Z13.89 Encounter for screening for other disorder (principal) ==

== ENCOUNTER 2022-12-18 15:00 | Outpatient (RCR) | payer OTHER, SELFPAY ==
--- NOTE | 2022-09-11 12:28 | MHC.PT.EP ---
[facility] [place] Office [place] Office [place] Office [address] Constantin Ingram [address] [phone] F: [phone] F: [phone] F: [phone] F: [phone] Physical Therapy Plan of Care Date of Evaluation: Date of Surgery: 06/24/2022 Diagnosis: bimalleolar fx of R ankle Assessment: Patient is a 37 year old female presenting to PT s/p R ankle ORIF on 06/24/2022. She presents today with impairments in pain, ankle ROM, ankle strength, general LE strength, balance, gait mechanics. 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 Clinical presentation today is most consistent with signs and sx associated with s/p ankle ORIF on 06/24/2022 and pt will benefit from skilled PT to address the following problems and impairments noted upon evaluation: pain, ankle ROM, ankle strength, general LE strength, balance, gait mechanics. These problems limit the patient with the following functional activities: ambulating, stair negotiation, ADLs. The prescribed treatment plan of care is medically necessary. Co-morbidities of fibromyalgia were identified and taken into considerations of plan of care. Pt was educated on HEP, role of PT, prognosis, POC, ed on her on desensitization with wash cloth and washing her foot. Frequency and Duration: The patient will be seen 2 x week x 8 weeks Short Term Goals: Pt will demonstrate improved R ankle ROM to equal B in 4 weeks. Pt will demonstrate ability to ambulate in walking boot without crutches in 4 weeks. Pt will demonstrate R ankle MMT strength at least 3/5 in 4 weeks. Pt will demonstrate improved R ankle MMT strength to 4/5 in 6 weeks. Jail Goals: Pt will demonstrate improved LEFI score by 9 points in 8 weeks for improved functional mobility. Pt will demonstrate ability to ambulate without boot pending MD clearance in 8 weeks for return to PLOF. Pt will demonstrate ability to negotiate stairs step over step in 8 weeks pending MD clearance for improved access to the community and home. Treatment Plan: Modalities to reduce pain, spasms and effusion. Manual therapy to restore motion and function. Therapeutic exercise to improve strength and flexibility. Neuromuscular re-education for posture and balance. Therapeutic activities to return to functional activities of daily living. Electronically signed by: Rhianna Monroe, PT, DPT, ATC Please sign and return to therapist. Thank you for your referral.
--- NOTE | 2022-12-18 15:57 | MHC.PT.DC ---
[facility] [place] Office [place] Office [place] Office [address] Constantin Ingram [address] [phone] F: [phone] F: [phone] F: [phone] F: [phone] Physical Therapy Discharge Report Diagnosis: bimalleolar fx of R ankle Date of Surgery: 06/24/2022 Date of Evaluation: 09/11/22 Date of Discharge: 12/18/22 Treatments to Date: 6 Cancellations to Date: 11 No Shows to Date: 2 Discharge Status: Visit Non-compliance Discharge Summary: 12/18/2022: Pt has not attended skilled PT in 30 days due to repeated cancels for various reasons. Pt with 11 cancels and 2 no shows at this point. Pt is having extreme difficulty with attending formal PT. She continues to wear the boot due to fear of her child jumping on her leg. She states she is compliant with her exercises but still is not demonstrating any significant changes in strength or ROM since start of care. She is also still demonstrating increased swelling in the R foot and ankle. Discussed with pt plan going forward as attending formal PT does not seem like a realistic expectation as she is very inconsistent with attendance. Pt agrees with this. At this point pt should continue with her HEP at home focusing on strengthening, ROM, and weaning out of the boot as tolerated and per HEP provided. She should also reschedule her no showed appointment with ortho that she missed. It is not appropriate to continue with skilled PT at this point and therefore pt will be d/c at this time and she is in agreement with this plan. Electronically signed by: Rhianna Monroe, PT, DPT, ATC Please sign and return to therapist. Thank you for your referral.
== END 2022-12-18 15:57 | disposition home or self-care (01) ==
LOC: HO.PTCHIC 15:00
PROVIDERS: PCP Internal Medicine; Visit Provider Physician Assistant
DX: S82.841A Displaced bimalleolar fracture of right lower leg, initial encounter for closed fracture (principal)
CPT/HCPCS: 97110; 97112; 97140; 97162; 97530

== ENCOUNTER 2023-07-08 18:25 | Day surgery (SDC) | payer OTHER, SELFPAY ==
--- NOTE | ~2023-07-08 | US_ITS ---
EXAMINATION: US OBSTETRICAL ULTRASOUND CLINICAL INFORMATION: Heavy vaginal bleeding COMPARISON: None available. LMP: End april. Gestational age by maternal dates is . Estimated date of delivery by maternal dates is . TECHNIQUE: Transabdominal and transvaginal first trimester OB ultrasound. Transvaginal exam was performed for better visualization of the uterus and ovaries. FINDINGS: The uterus is anteverted and measures 13 x 6 x 6 cm. The endometrium is abnormally thickened measuring 2.2 cm and heterogeneous appearing. No intrauterine is seen. The ovaries are normal. The right ovary measures 3 x 2 x 2 cm and the left ovary measures 2 x 1 x 1 cm. There is no fluid in the pelvis. US/US OB pelvic and transvaginal IMPRESSION: No intrauterine seen. Abnormally thickened heterogeneous endometrium. Differential would include spontaneous , ectopic and early intrauterine too early to see. Follow-up quantitative beta hCG and ultrasound recommended.
[2023-07-08 18:36] VITALS: BP 134/84; PULSE 110; RESP 26; TEMP 37.1; O2SAT 97; BMI 46.1
--- NOTE | 2023-07-08 18:37 | ED.FEMALEGU ---
HPI - Female Genitourinary General Chief complaint: Urogenital-Female Stated complaint: miscarriage? Time Seen by Provider: 07/08/23 18:41 Related Data Home Medications Medication Instructions Recorded Confirmed ibuprofen 800 mg tablet 800 mg PO Q8H PRN pain 09/09/22 09/09/22 Previous Rx's Medication Instructions Recorded chair, wheel (Wheel chair) #1 ea 06/09/22 chair, wheel (Wheel chair) #1 ea 06/12/22 commode (bedside commode) #1 ea 06/12/22 nicotine 14 mg/24 hr daily 1 patch transdermal DAILY #28 ea 09/09/22 transdermal patch gabapentin 800 mg tablet 800 mg PO TID #90 tabs 04/13/23 Allergies Allergy/AdvReac Type Severity Reaction Status Date / Time cephalexin [From KEFLEX] AdvReac Intermediate NAUSEA & Verified 07/08/23 18:36 VOMITING duloxetine [From CYMBALTA] AdvReac Intermediate NAUSEA & Verified 07/08/23 18:36 VOMITING PMFSH Past Medical History Medical History Metatarsal bone fracture Bimalleolar ankle fracture Morbid obesity with BMI of 50.0-59.9, adult Smoker Post traumatic stress disorder (PTSD) COVID-19 Fibromyalgia Surgical History History of laparoscopic cholecystectomy (~2007) Social History Social History Housing: Apartment Alcohol intake: never Patient Tobacco Use Status: Current everyday Tobacco user Tobacco use type: Cigarette Cigarettes Per Day: 10 Smoked in Last 30 Days: No Second Hand Smoke Exposure: Yes Use of substances other than those prescribed or required for medical reasons: No Substance Use Type: Marijuana Patient : Yes service: No Current occupational status: student Sexual orientation: Straight/Heterosexual Gender identity: Female Cognitive needs: No Hearing needs: No Vision needs: No Physical Exam Vital Signs: Vital Signs: Last Vital Signs Temp 98.1 F 07/08/23 20:20 Pulse 108 H 07/08/23 20:20 Resp 15 07/08/23 20:20 BP 128/84 07/08/23 20:20 Pulse Ox 97 07/08/23 18:36 O2 Del Method Room Air 07/08/23 18:36 BMI result Body Mass Index 46.1 Medications Administered Discontinued Medications Generic Name Dose Route Start Last Admin Trade Name Freq PRN Reason Stop Dose Admin Sodium Chloride 1,000 mls @ 999 mls/hr 07/08/23 19:39 07/08/23 20:16 Ns IVCONT 07/08/23 20:39 999 mls/hr .Q1H1M ONE Administration Medical Decision Making Lab Data 07/08/23 19:34 07/08/23 19:34 Labs: Lab Results 07/08/23 Range/Units 19:34 WBC 8.8 (4.8-10.8) X10*3/uL RBC 5.26 (4.20-5.50) X10*6/uL Hgb 14.8 (12.0-16.0) g/dl Hct 43.7 (37.0-47.0) % MCV 83.1 (80.0-98.0) fL MCH 28.1 (27.0-33.0) pg MCHC 33.9 (31.0-35.0) g/dl RDW 13.2 (11.0-16.0) % Plt Count 213 D (160-400) X10*3/uL MPV 10.9 (9.4-12.3) fL Immature Gran % (Auto) 0.2 (0.0-0.4) % Neut % (Auto) 68.9 (45-73) % Lymph % (Auto) 23.4 (20-40) % Gaston % (Auto) 6.2 (2-11) % Eos % (Auto) 0.7 (0-4) % Baso % (Auto) 0.6 (0-2) % Lymph # (Auto) 2.1 (1.2-4.9) X10*3/uL Gaston # (Auto) 0.6 (0.1-1.2) X10*3/uL Eos # (Auto) 0.1 (0.0-0.4) X10*3/uL Baso # (Auto) 0.1 (0.0-0.2) X10*3/uL Abs Immat Gran (auto) 0.02 (0.00-0.03) X10*3/uL Absolute Neuts (auto) 6.1 (2.0-8.3) x10*3/uL Absolute Nucleated RBC 0.000 (0.0-0.012) X10*3/uL Nucleated RBC % (auto) 0.0 (0.0-0.2) /100WBC PT 13.2 (11.1-13.3) SEC INR 1.1 (0.9-1.1) APTT 33.8 (26.0-36.4) SEC Sodium 140 (135-145) mmol/L Potassium 4.1 D (3.3-5.1) mmol/L Chloride 107 (96-108) mmol/L Carbon Dioxide 21 L (22-29) mmol/L Anion Gap 16 (12-20) BUN 9 (9-16) mg/dL Creatinine 0.80 (0.5-1.4) mg/dL Estim Creat Clear Calc 120.6 Estimated GFR > 60 Random Glucose 108 (60-115) mg/dL Calcium 9.8 D (8.4-10.2) mg/dL Total Bilirubin 0.6 (0.0-1.0) mg/dL Direct Bilirubin 0.1 (0.0-0.5) mg/dL AST 24 (5-31) U/L ALT 18 (0-31) U/L Alkaline Phosphatase 83 (39-117) U/L Total Protein 7.5 (6.5-8.0) g/dL Albumin 3.9 (3.5-5.0) g/dL Beta HCG, Quant 60765 mIU/mL Blood Type O Positive Discharge Plan Discharge Prescriptions: No Action gabapentin 800 mg tablet 800 mg PO TID Qty: 90 1RF (DME) Wheel chair Kit See Rx Instructions .Route Qty: 1 0RF Rx Instructions: As directed (DME) bedside commode Kit See Rx Instructions .Route Qty: 1 0RF Rx Instructions: As directed (DME) Wheel chair Kit See Rx Instructions .Route Qty: 1 0RF Rx Instructions: As directed ibuprofen 800 mg tablet 800 mg PO Q8H PRN (Reason: pain) nicotine 14 mg/24 hr patch 24 hour 1 patch transdermal DAILY Qty: 28 0RF
--- NOTE | 2023-07-08 18:50 | ED.FEMALEGU ---
HPI - Female Genitourinary General Chief complaint: Urogenital-Female Stated complaint: miscarriage? Time Seen by Provider: 07/08/23 18:41 Source: patient Mode of arrival: ambulatory Limitations: no limitations History of Present Illness HPI Narrative: Patient comes to the emergency room complaining of suprapubic cramping and vaginal bleeding. Patient states she is a G6 P for A1 at approximately 12 weeks of gestational age. Patient has not had care yet. Patient has history of 1 ectopic for which she was given methotrexate. Patient states that today she started spotting, throughout the afternoon passing clots and now she is bleeding heavy vaginally . Patient denies chest pain or shortness of breath, no lightheadedness Related Data Home Medications Medication Instructions Recorded Confirmed ibuprofen 800 mg tablet 800 mg PO Q8H PRN pain 09/09/22 09/09/22 Previous Rx's Medication Instructions Recorded chair, wheel (Wheel chair) #1 ea 06/09/22 chair, wheel (Wheel chair) #1 ea 06/12/22 commode (bedside commode) #1 ea 06/12/22 nicotine 14 mg/24 hr daily 1 patch transdermal DAILY #28 ea 09/09/22 transdermal patch gabapentin 800 mg tablet 800 mg PO TID #90 tabs 04/13/23 Allergies Allergy/AdvReac Type Severity Reaction Status Date / Time cephalexin [From KEFLEX] AdvReac Intermediate NAUSEA & Verified 07/08/23 18:36 VOMITING duloxetine [From CYMBALTA] AdvReac Intermediate NAUSEA & Verified 07/08/23 18:36 VOMITING Review of Systems Review of Systems: Constitutional : No Weight loss, No Fever, No Chills, No Night Sweats, No Fatigue, No Malaise ENT/Mouth : No Hearing loss, No Ear Pain, No Nasal Congestion, No Sinus Pain, No Hoarseness, No sore throat, No Rhinorrhea, No Swallowing Difficulty Eyes: No Eye Pain, No Swelling, No Redness, No Foreign Body, No Discharge, No Vision Changes Cardiovascular : No Chest Pain, No SOB, No Dyspnea on Exertion, No Orthopnea, No Edema, No Palpitations Respiratory : No Cough, No Sputum, No Wheezing, No Smoke Exposure, No Dyspnea Gastrointestinal : No Nausea, No Vomiting, No Diarrhea, No Constipation, Kaplan of suprapubic cramping, No Hematochezia, No Melena Genitourinary : Going a heavy vaginal bleeding No Dysuria, No Urinary Frequency, No Hematuria, No Urinary Incontinence, No Urgency, No Flank Pain, No Urinary Flow Changes, No Hesitancy Musculoskeletal : No joint pain, No Myalgias, No Joint Swelling Skin : No Skin Lesions, No rash Neuro : No Weakness, No Numbness, No Paresthesias, No Loss of Consciousness, No Dizziness, No Headache Psych : No Anxiety/Panic, No Depression, No SI/HI/AH/VH, No Social Issues, Heme/Lymph: No Bruising, No Bleeding,No Lymphadenopathy Endocrine : No Polyuria, No Polydipsia, No Temperature Intolerance [facility] Past Medical History Medical History Metatarsal bone fracture Bimalleolar ankle fracture Morbid obesity with BMI of 50.0-59.9, adult Smoker Post traumatic stress disorder (PTSD) COVID-19 Fibromyalgia Surgical History History of laparoscopic cholecystectomy (~2007) Social History Social History Housing: Apartment Alcohol intake: never Patient Tobacco Use Status: Current everyday Tobacco user Tobacco use type: Cigarette Cigarettes Per Day: 10 Smoked in Last 30 Days: No Second Hand Smoke Exposure: Yes Use of substances other than those prescribed or required for medical reasons: No Substance Use Type: Marijuana Patient : Yes service: No Current occupational status: student Sexual orientation: Straight/Heterosexual Gender identity: Female Cognitive needs: No Hearing needs: No Vision needs: No Physical Exam Vital Signs: Vital Signs: Last Vital Signs Temp 98.1 F 07/08/23 20:20 Pulse 108 H 07/08/23 20:20 Resp 15 07/08/23 20:20 BP 128/84 07/08/23 20:20 Pulse Ox 97 07/08/23 18:36 O2 Del Method Room Air 07/08/23 18:36 BMI result Body Mass Index 46.1 Const: Other: Appearance: Alert. Oriented X3. No acute distress. Eyes: Pupils equal, round and reactive to light. ENT: Pharynx normal. Neck: Normal inspection. Neck supple. No lymph nodes noted. No crepitus CVS: Normal heart rate and rhythm. Pulses normal. Normal S1 and S2 Respiratory: No respiratory distress. Breath sounds normal. No Wheezing. No rales Abdomen: Soft and nontender. No rigidity. No distention. : Large amount of clots and blood in the vaginal vault. 150 cc of red blood were suctioned Skin: Skin warm and dry. Normal skin color. Normal skin turgor. Extremities: No lower extremity edema. No Lacerations. No Rash Neuro: Oriented X 3. No motor deficit. No sensory deficit. Moving all extremities. No slurred speech. CN 2 through 12 grossly intact Psych: calm, cooperative, normal affect Course Course Course Narrative: -all labs and US pending -on physical exam, patient has heavy vaginal bleeding. There is small amount of blood coming from the cervical os -I discussed the patient's physical exam with Dr. Umana Medications Administered Discontinued Medications Generic Name Dose Route Start Last Admin Trade Name Freq PRN Reason Stop Dose Admin Sodium Chloride 1,000 mls @ 999 mls/hr 07/08/23 19:39 07/08/23 20:16 Ns IVCONT 07/08/23 20:39 999 mls/hr .Q1H1M ONE Administration Medical Decision Making Medical Decision Making [facility] Narrative: -my interpretation of labs: hematology within normal limits, chemistry [place] [address] -my interpretation of ultrasound, noted intrauterine . -radiology report: Abnormally thickened heterogeneous endometrium. Likely spontaneous - is at bedside, patient still has ongoing vaginal bleeding. 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 07/08/23 19:34 07/08/23 19:34 Labs: Lab Results 07/08/23 Range/Units 19:34 WBC 8.8 (4.8-10.8) X10*3/uL RBC 5.26 (4.20-5.50) X10*6/uL Hgb 14.8 (12.0-16.0) g/dl Hct 43.7 (37.0-47.0) % MCV 83.1 (80.0-98.0) fL MCH 28.1 (27.0-33.0) pg MCHC 33.9 (31.0-35.0) g/dl RDW 13.2 (11.0-16.0) % Plt Count 213 D (160-400) X10*3/uL MPV 10.9 (9.4-12.3) fL Immature Gran % (Auto) 0.2 (0.0-0.4) % Neut % (Auto) 68.9 (45-73) % Lymph % (Auto) 23.4 (20-40) % [place] % (Auto) 6.2 (2-11) % Eos % (Auto) 0.7 (0-4) % Baso % (Auto) 0.6 (0-2) % Lymph # (Auto) 2.1 (1.2-4.9) X10*3/uL [place] # (Auto) 0.6 (0.1-1.2) X10*3/uL Eos # (Auto) 0.1 (0.0-0.4) X10*3/uL Baso # (Auto) 0.1 (0.0-0.2) X10*3/uL Abs Immat Gran (auto) 0.02 (0.00-0.03) X10*3/uL Absolute Neuts (auto) 6.1 (2.0-8.3) x10*3/uL Absolute Nucleated RBC 0.000 (0.0-0.012) X10*3/uL Nucleated RBC % (auto) 0.0 (0.0-0.2) /100WBC PT 13.2 (11.1-13.3) SEC INR 1.1 (0.9-1.1) APTT 33.8 (26.0-36.4) SEC Sodium 140 (135-145) mmol/L Potassium 4.1 D (3.3-5.1) mmol/L Chloride 107 (96-108) mmol/L Carbon Dioxide 21 L (22-29) mmol/L Anion Gap 16 (12-20) BUN 9 (9-16) mg/dL Creatinine 0.80 (0.5-1.4) mg/dL Estim Creat Clear Calc 120.6 Estimated GFR > 60 Random Glucose 108 (60-115) mg/dL Calcium 9.8 D (8.4-10.2) mg/dL Total Bilirubin 0.6 (0.0-1.0) mg/dL Direct Bilirubin 0.1 (0.0-0.5) mg/dL AST 24 (5-31) U/L ALT 18 (0-31) U/L Alkaline Phosphatase 83 (39-117) U/L Total Protein 7.5 (6.5-8.0) g/dL Albumin 3.9 (3.5-5.0) g/dL Beta HCG, Quant 16409 mIU/mL Blood Type O Positive Critical Care Time Critical Care Time Critical Care Time: Yes Total Critical Care Time: 60 Attestation: I have personally provided critical care time. Time includes review of lab data, radiology results, discussion with consultants, and monitoring for potential decompensation. Intervention performed as documented. Discharge Plan Discharge Clinical Impression: Spontaneous , Episode of heavy vaginal bleeding Patient Disposition: Still a Patient Transfer Details: Patient will be going to the OR Prescriptions: No Action gabapentin 800 mg tablet 800 mg PO TID Qty: 90 1RF (DME) Wheel chair Kit See Rx Instructions .Route Qty: 1 0RF Rx Instructions: As directed (DME) bedside commode Kit See Rx Instructions .Route Qty: 1 0RF Rx Instructions: As directed (DME) Wheel chair Kit See Rx Instructions .Route Qty: 1 0RF Rx Instructions: As directed ibuprofen 800 mg tablet 800 mg PO Q8H PRN (Reason: pain) nicotine 14 mg/24 hr patch 24 hour 1 patch transdermal DAILY Qty: 28 0RF
--- NOTE | 2023-07-08 19:33 | PC.NURSE ---
Patient having vaginal bleeding, and reports 12 weeks . Pelvic exam preformed by , patient had several large clots and required suction of approximately 150ml in total. Blood work being drawn at this time. VSS. Patient provided with comfort by this RN and tech. Awaiting consult with and u/s.
[2023-07-08 19:38] LABS: MANUAL DIFF FLAG NO
[2023-07-08 19:41] LABS: Basophils Absolute Auto 0.1 X10*3/uL (0.0-0.2); Basophils Percent Auto 0.6 % (0-2); Eosinophils Absolute Auto 0.1 X10*3/uL (0.0-0.4); Eosinophils Percent Auto 0.7 % (0-4); Hematocrit 43.7 % (37.0-47.0); Hemoglobin 14.8 g/dl (12.0-16.0); Imm Gran Abs Auto 0.02 X10*3/uL (0.00-0.03); Imm Gran Pct Auto 0.2 % (0.0-0.4); Lymphocytes Absolute Auto 2.1 X10*3/uL (1.2-4.9); Lymphocytes Percent Auto 23.4 % (20-40); Mean Corpuscular HGB Conc 33.9 g/dl (31.0-35.0); Mean Corpuscular Hemoglobin 28.1 pg (27.0-33.0); Mean Corpuscular Volume 83.1 fL (80.0-98.0); Mean Platelet Volume 10.9 fL (9.4-12.3); Monocytes Absolute Auto 0.6 X10*3/uL (0.1-1.2); Monocytes Percent Auto 6.2 % (2-11); Neutrophils Absolute Auto 6.1 x10*3/uL (2.0-8.3); Neutrophils Percent Auto 68.9 % (45-73); Platelet Count 213 X10*3/uL (160-400); Red Blood Count 5.26 X10*6/uL (4.20-5.50); Red Cell Distribution Width 13.2 % (11.0-16.0); White Blood Count 8.8 X10*3/uL (4.8-10.8)
--- NOTE | 2023-07-08 19:48 | P.CONOB_ITS ---
VIDEO PRESENTATION OPERATOR - CN: HPI Data of Consult Consult date: 07/08/23 Primary Care Provider: Kelvin Celestin MD Consult Narrative Narrative: I was consulted on Imelda Workman who is a 38 year old female by LMP at around 8 weeks of gestation with no care presented to the emergency room complaining of vaginal bleeding associated with pelvic cramping. The patient started having vaginal spotting, this was followed by passage of vaginal blood clots and turned into heavier vaginal bleeding . No other concerns. Blood type O positive cc:: CC: OB PMF Past Medical History Medical History Metatarsal bone fracture Bimalleolar ankle fracture Morbid obesity with BMI of 50.0-59.9, adult Smoker Post traumatic stress disorder (PTSD) COVID-19 Fibromyalgia Surgical History Surgical History History of laparoscopic cholecystectomy (~2007) Social History Social History Housing: Apartment Alcohol intake: never Patient Tobacco Use Status: Current everyday Tobacco user Tobacco use type: Cigarette Cigarettes Per Day: 10 Second Hand Smoke Exposure: Yes Substance Use Type: Marijuana service: No Current occupational status: student Sexual orientation: Straight/Heterosexual Gender identity: Female Cognitive needs: No Hearing needs: No Vision needs: No Meds Allergies Allergy/AdvReac Type Severity Reaction Status Date / Time cephalexin [From KEFLEX] AdvReac Intermediate NAUSEA & Verified 07/08/23 18:36 VOMITING duloxetine [From CYMBALTA] AdvReac Intermediate NAUSEA & Verified 07/08/23 18:36 VOMITING Active Medications: Current Medications Sodium Chloride (Ns) 1,000 mls @ 999 mls/hr IVCONT .Q1H1M ONE Stop: 07/08/23 20:39 Home Medications Medication Instructions Recorded Confirmed Last Taken Type ibuprofen 800 mg tablet 800 mg PO Q8H PRN pain 09/09/22 09/09/22 Unknown History VIDEO PRESENTATION OPERATOR Physical Exam Vitals Vital signs: Temp Pulse Resp BP Pulse Ox O2 Del Method 98.8 F 110 H 26 H 134/84 97 Room Air 07/08/23 18:36 07/08/23 18:36 07/08/23 18:36 07/08/23 18:36 07/08/23 18:36 07/08/23 18:36 BMI result Body Mass Index 46.1 Abdomen Auscultation/Inspection/Palpation: Normal bowel sounds, Soft, Non-distended and No tenderness Female Genitalia (Pelvic) Bladder/Urethra: Normal meatus Vulva: No lesions Vagina: Nontender Uterus: Enlarged Adnexa/Parametria: Adnexal Tenderness: None and Adnexal Mass: None Additional Comments: large blood clots per vagina active vaginal bleeding VIDEO PRESENTATION OPERATOR - Results Labs 07/08/23 19:34 07/08/23 19:34 Imaging US - abdomen: Radiologist's impression: ITS Impressions Pelvic/Transvag US 07/08/23 19:58 IMPRESSION: No intrauterine seen. Abnormally thickened heterogeneous endometrium. Differential would include spontaneous , ectopic and early intrauterine too early to see. Follow-up quantitative beta hCG and ultrasound recommended. Assessment and Plan (1) Incomplete : Status: Acute Discussed with the patient the result , findings on pelvic exam all pointing towards incomplete , the recommended treatment discussed with the patient including suction D&C, all pros, cons, risks and benefits were discussed with the patient and the patient the decided to go ahead with Suction D&C. so a more detailed discussion about the procedure was carried on with the patient including the technique, risks including but not limited to: bleeding, infection, uterine perforation, injury to blood vessels, bowels, ureters, bladder, possible need for blood transfusion with all its risks ( HIV, Hep b or C, anaphylaxis reactions), possible need for laparoscopy, laparotomy, or hysterectomy, possible , thromboembolic events, possibility of a negative impact on future fertility because of scar tissue development inside the uterus; alternatives of this option were discussed with the patient i, the patient decided to go ahead with Suction D&C and signed the consent. All questions answered, the patient verbalized understanding and agreed with the plan. Doxycycline 200 mg p.o. preop given to the patient. Ultrasound notified. Instructions given the patient to schedule a 2 week postoperative appointment. This note was generated with a voice recognition program. Some errors may have been overlooked during the review of this note. Sometimes these errors may affect the content or meaning of a given sentence. Time Spent With Patient Time: Total time managing care of this patient today ____ minutes.
[2023-07-08 19:49] LABS: INTERNATIONAL NORM RATIO 1.1 (0.9-1.1); Prothrombin Time 13.2 SEC (11.1-13.3)
[2023-07-08 19:51] LABS: Partial Thromboplastin Time 33.8 SEC (26.0-36.4)
[2023-07-08 20:03] LABS: HCG Quantitative 14113 mIU/mL
[2023-07-08 20:04] LABS: Alanine Aminotransferase 18 U/L (0-31); Albumin Level 3.9 g/dL (3.5-5.0); Alkaline Phosphatase 83 U/L (39-117); Anion Gap 16 (12-20); Aspartate Amino Transferase 24 U/L (5-31); Bilirubin Direct 0.1 mg/dL (0.0-0.5); Bilirubin Total 0.6 mg/dL (0.0-1.0); Blood Urea Nitrogen 9 mg/dL (9-16); Calcium 9.8 mg/dL (8.4-10.2); Carbon Dioxide 21 mmol/L (22-29); Chloride 107 mmol/L (96-108); Creatinine Clr Calc Pharmacy 120.6; Estimated Glomerular Filt Rate > 60; Glucose Random 108 mg/dL (60-115); Potassium 4.1 mmol/L (3.3-5.1); Sodium 140 mmol/L (135-145); Total Protein 7.5 g/dL (6.5-8.0)
[2023-07-08] MEDS: 0.9 % Sodium Chloride 1,000 ML 999 ML IVCONT (20:16)
[2023-07-08 20:20] VITALS: BP 128/84; PULSE 108; RESP 15; TEMP 36.7
[2023-07-08] MEDS: Doxycycline Monohydrate 100 MG CAPSULE 200 MG PO (21:28)
--- NOTE | 2023-07-08 21:34 | HO.ANESPROP2 ---
HPI - Anesthesia Eval Consult details Narrative: Vaginal bleeding PMFSH Active Problems Active Problems: All Active Problems (Updated 07/08/23 @ 21:03 by Aron Umana MD) Incomplete (Acute) Episode of heavy vaginal bleeding (Acute) Spontaneous (Acute) Impacted cerumen, left ear (Acute) Adult general medical exam (Acute) Cervical cancer screening (Acute) Fracture of base of fifth metatarsal bone of left foot (Acute) Bimalleolar fracture of right ankle (Acute) Ankle fracture (Acute) Metatarsal bone fracture (Acute) Morbid obesity with BMI of 50.0-59.9, adult (Acute) Fibromyalgia (Acute) Smoker (Acute) Tympanic membrane inflammation (Acute) Pulsatile tinnitus of left ear (Acute) Low back pain (Acute) Attention deficit (Acute) Post traumatic stress disorder (PTSD) (Acute) Ectopic (Acute) Bleeding in early (Acute) Past Medical History Medical History Metatarsal bone fracture Bimalleolar ankle fracture Morbid obesity with BMI of 50.0-59.9, adult Smoker Post traumatic stress disorder (PTSD) COVID-19 Fibromyalgia Family History Family history of problems with anesthesia: No Surgical History Surgical History History of laparoscopic cholecystectomy (~2007) History of Problems with Anesthesia: No Social History Social History Housing: Apartment Alcohol intake: never Patient Tobacco Use Status: Current everyday Tobacco user Tobacco use type: Cigarette Cigarettes Per Day: 10 Second Hand Smoke Exposure: Yes Substance Use Type: Marijuana service: No Current occupational status: student Sexual orientation: Straight/Heterosexual Gender identity: Female Cognitive needs: No Hearing needs: No Vision needs: No Meds Allergies Allergy/AdvReac Type Severity Reaction Status Date / Time cephalexin [From KEFLEX] AdvReac Intermediate NAUSEA & Verified 07/08/23 18:36 VOMITING duloxetine [From CYMBALTA] AdvReac Intermediate NAUSEA & Verified 07/08/23 18:36 VOMITING Home Medications Medication Instructions Recorded Confirmed Last Taken Type ibuprofen 800 mg tablet 800 mg PO Q8H PRN pain 09/09/22 09/09/22 Unknown History Exam Exam Date and Time: July 08, [id number] Height,Weight and Vital Signs: Height 5 ft 3 in Weight 117.934 kg Last Vital Signs Temp 98.1 F 07/08/23 20:20 Pulse 108 H 07/08/23 20:20 Resp 15 07/08/23 20:20 BP 128/84 07/08/23 20:20 Pulse Ox 97 07/08/23 18:36 O2 Del Method Room Air 07/08/23 18:36 Pertinent Lab Results Pertinent Lab Results: Laboratory Tests 07/08/23 19:34 WBC 8.8 RBC 5.26 Hgb 14.8 Hct 43.7 MCV 83.1 MCH 28.1 MCHC 33.9 RDW 13.2 Plt Count 213 D MPV 10.9 Immature Gran % (Auto) 0.2 Neut % (Auto) 68.9 Lymph % (Auto) 23.4 [place] % (Auto) 6.2 Eos % (Auto) 0.7 Baso % (Auto) 0.6 Lymph # (Auto) 2.1 [place] # (Auto) 0.6 Eos # (Auto) 0.1 Baso # (Auto) 0.1 Abs Immat Gran (auto) 0.02 Absolute Neuts (auto) 6.1 Absolute Nucleated RBC 0.000 Nucleated RBC % (auto) 0.0 PT 13.2 INR 1.1 APTT 33.8 Sodium 140 Potassium 4.1 D Chloride 107 Carbon Dioxide 21 L Anion Gap 16 BUN 9 Creatinine 0.80 Estim Creat Clear Calc 120.6 Estimated GFR > 60 Random Glucose 108 Calcium 9.8 D Total Bilirubin 0.6 Direct Bilirubin 0.1 AST 24 ALT 18 Alkaline Phosphatase 83 Total Protein 7.5 Albumin 3.9 Beta HCG, Quant 92264 Blood Type O Positive Airway Mallampati Class: III TM Dist: >3cm Neck ROM: Full Heart: RRR Lungs: CTA Assessment and Plan Assessment Anesthesia Assessment: Anesthesia Plan Discussed and Chart Reviewed Final Anesthetic Review Family History of Problems with Anesthesia: No History of Problems with Anesthesia: No NPO: No ASA Class: III and Emergency Final Preanesthetic Review: No Changes in Pt Med Stat, Meds/Allgs Chart Reviewed, Consent Obtained/Reviewed and Anes Risks/Benef Reviewed Patient Risk: Intermediate Procedure Risk: Low Anesthetic Plan Anesthetic Plan: GA Disposition: Standard PACU
--- NOTE | 2023-07-08 21:40 | PC.NURSE ---
Patient brought down to OR for D&C. Pt educated by regarding risks and procedure. Pt verbalized understanding. Pt given verbal reassurance and comfort by this RN. PO antibiotics given as ordered.
--- NOTE | 2023-07-08 22:19 | PM.OP ---
Brief Operative Note Date of Service: 07/08/23 Pre-op diagnosis: 8 weeks of gestation with incomplete Post-op diagnosis: same Procedure: Suction D&CEi Surgeon: Aron Umana MD Anesthesia: MAC Was an Weight Loss Physician used for this Procedure?: No Estimated blood loss (mL): 100 Pathology: other (Products of conception) Condition: stable Disposition: PACU
--- NOTE | 2023-07-08 22:21 | W.PM.OPN ---
Operative Note Operative Note Date of Service: 07/08/23 Narrative: Preop diagnosis: 8 weeks of gestation with incomplete AB Operation: suction D and C Postop diagnosis: The same EBL: Minimal Anesthesia: GLMA Outside Parts Salesman: None Pathology: Products of conception Procedure: The patient was put in a dorsal distal mid position was scrubbed and draped in the usual sterile fashion. A sterile speculum was inserted inside the patient's vagina the anterior lip of the cervix was grasped with single-tooth tenaculum the cervix was dilated up to 7 mm. Under ultrasonographic guidance flexible 7. Suction tip was introduced inside the patient ran cavity till the fundus was hit then turning the suction 360 degrees around products of conception was sucked out toward the uterine cavity. The suction tip was taken out of the patient uterine cavity sharp curettings was followed in 4 quadrants of the uterus till a gritty feeling was felt. The suction tip was reintroduced under ultrasonographic guidance and intrauterine blood was sucked. The suction tip was taken out. Single-tooth tenaculum was removed hemostasis assured using pressure. The patient tolerated the procedure well and was transferred to the PACU in a stable condition.
[2023-07-08 22:36] VITALS: BP 105/63; PULSE 97; RESP 17; TEMP 36.1; O2SAT 95
[2023-07-08 22:40] VITALS: BP 106/65; PULSE 94; RESP 17; O2SAT 93
[2023-07-08 22:45] VITALS: BP 116/73; PULSE 94; RESP 17; O2SAT 98
[2023-07-08 23:05] VITALS: BP 112/70; PULSE 88; RESP 16; TEMP 36.8; O2SAT 98
--- NOTE | 2023-07-08 23:13 | PC.NURSE ---
patient cleared for Discharge by md Umana., patients belongings returned to patient.
[2023-07-09 05:45] LABS: CT PCR NOT DETECTED (Not Detect.); NG PCR NOT DETECTED (Not Detect.)
[2023-07-09 13:01] LABS: BV Int Neg Control Negative (Negative); BV Int Pos Control Positive (Positive)
== END 2023-07-08 23:15 | disposition home or self-care (01) ==
LOC: HO.ED 20:53 → HO.SSS 21:12
PROVIDERS: Emergency Provider Emergency Medicine; PCP Internal Medicine; Visit Provider Obstetrics & Gynecology
PROC: (CPT 59812; principal; 2023-07-08 21:30)
DX: O03.1 Delayed or excessive hemorrhage following incomplete spontaneous abortion (principal); O09.10 Supervision of pregnancy with history of ectopic pregnancy, unspecified trimester; O99.331 Smoking (tobacco) complicating pregnancy, first trimester; F17.210 Nicotine dependence, cigarettes, uncomplicated; O99.321 Drug use complicating pregnancy, first trimester; F12.90 Cannabis use, unspecified, uncomplicated; O26.891 Other specified pregnancy related conditions, first trimester; M79.7 Fibromyalgia; F43.10 Post-traumatic stress disorder, unspecified; Z3A.08 8 weeks gestation of pregnancy; Z88.1 Allergy status to other antibiotic agents; Z88.8 Allergy status to other drugs, medicaments and biological substances; Z79.1 Long term (current) use of non-steroidal anti-inflammatories (NSAID)
CPT/HCPCS: 59812; 0353U; 36415; 76801; 76817; 76998; 80048; 80076; 84702; 85025; 85610; 85730; 86900; 86901; 87480; 87510; 87660; 88305; 96360; 99284; 99285; J0330; J1100; J2405; J2590; J3010

== ENCOUNTER → 2023-07-08 21:12 | Outpatient (BNV) | payer OTHER, SELFPAY | PROVIDERS: Emergency Provider Emergency Medicine; PCP Internal Medicine; Visit Provider Obstetrics & Gynecology | DX: O03.4 Incomplete spontaneous abortion without complication (principal) | CPT/HCPCS: 59812; 99222 ==

== ENCOUNTER 2023-07-27 12:27 | Outpatient (REF) | payer OTHER, SELFPAY ==
[2023-07-27 15:43] LABS: HCG Quantitative 9 mIU/mL
== END 2023-07-27 12:28 | disposition home or self-care (01) ==
LOC: HO.LAB 12:27
PROVIDERS: PCP Internal Medicine; Visit Provider Obstetrics & Gynecology
DX: O03.4 Incomplete spontaneous abortion without complication (principal)
CPT/HCPCS: 36415; 84702; 99212

== ENCOUNTER 2023-07-27 12:27 | Outpatient (AMB) | payer OTHER, SELFPAY ==
--- NOTE | 2023-07-27 12:40 | MHC.OFFVIS ---
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 Vaginal bleeding no abdominal /pain or fever. Pathology showed the following: Immature chorionic villi and decidualized and secretory endometrial tissue, consistent with products of conception [facility] Medical History Metatarsal bone fracture Bimalleolar ankle fracture Morbid obesity with BMI of 50.0-59.9, adult Smoker Post traumatic stress disorder (PTSD) COVID-19 Fibromyalgia Surgical History History of laparoscopic cholecystectomy (~2007) Social History Housing: Apartment Alcohol intake: never Patient Tobacco Use Status: Current everyday Tobacco user Tobacco use type: Cigarette Cigarettes Per Day: 10 Second Hand Smoke Exposure: Yes Substance Use Type: Marijuana service: No Current occupational status: student Sexual orientation: Straight/Heterosexual Gender identity: Female Cognitive needs: No Hearing needs: No Vision needs: No Female Reproductive History Menstrual control method: none Date of last pap smear: 01/27/18 (negative) Review of Systems Const All systems reviewed & are unremarkable except as noted in HPI and below Reports as per HPI and Reports no additional complaints GI Reports no additional complaints Reports no additional complaints Physical Exam Vital Signs: Last Vital Signs BP 114/76 07/27/23 12:41 BMI result Body Mass Index 46.1 Assessment & Plan Assessment & Plan (1) Incomplete : Code(s): O03.4 - Incomplete spontaneous without complication Plan: Discussed with the patient the results of pathology, will order hCG quantitative if not 0 will follow it down to 0 , will repeat hCG in a week. Discussed with the patient the different options of control including control pills/Nuvaring, DMPA, different types of IUD ?s ( cu vs progesterone) , sterilization. All the pros, cons, risks and benefits of each were discussed with the patient. The patient decided to think about it and get back to us, instructions given the patient use a backup method for control and schedule a follow-up appointment in 1 week. All questions answered, the patient verbalized understanding Orders: Orders HCG Quantitative Today O03.4 - Incomplete spontaneous without complication HCG Quantitative 1 Week O03.4 - Incomplete spontaneous without complication Coding Level of Care Code Est Pt Level 3 (62419) Diagnoses Incomplete O03.4
[2023-07-27 12:41] VITALS: BP 114/76; BMI 46.1
== END 2023-07-27 13:09 | disposition home or self-care (01) ==
PROVIDERS: PCP Internal Medicine; Visit Provider Obstetrics & Gynecology
DX: O03.4 Incomplete spontaneous abortion without complication (principal)
CPT/HCPCS: 99024

== ENCOUNTER 2023-08-03 12:49 | Outpatient (REF) | payer OTHER, SELFPAY ==
[2023-08-03 14:37] LABS: HCG Quantitative 3 mIU/mL
== END 2023-08-03 12:50 | disposition home or self-care (01) ==
LOC: HO.LAB 12:49
PROVIDERS: PCP Internal Medicine; Visit Provider Obstetrics & Gynecology
DX: O03.4 Incomplete spontaneous abortion without complication (principal)
CPT/HCPCS: 36415; 84702

== ENCOUNTER 2023-11-16 12:59 | Outpatient (AMB) | payer OTHER, SELFPAY ==
[2023-11-16 13:05] VITALS: BP 112/70; PULSE 88; O2SAT 98; BMI 49.0
--- NOTE | 2023-11-16 13:05 | MHC.PC.OV ---
Vital Signs 11/16/23 13:05 Height 5 ft 3 in Weight 276 lb 6 oz BMI 49.0 BP 112/70 Blood Pressure Location Lt brachial Position Sitting Pulse 88 Pulse Source Pulse Oximeter Pulse Oximetry (%) 98 Oxygen Delivery Method Room Air Intake Visit Reasons: Follow up Ballistics Tester Required: No Accompanied by: Self / Same As Patient Allergies cephalexin [From KEFLEX] Adverse Reaction (Intermediate, Verified 11/16/23 13:22) NAUSEA & VOMITING duloxetine [From CYMBALTA] Adverse Reaction (Intermediate, Verified 11/16/23 13:22) NAUSEA & VOMITING Medication List - Last Reconciled 11/16/23 by Kelvin Celestin MD chair, wheel (Wheel chair) As directed commode (bedside commode) As directed gabapentin 800 mg PO TID ibuprofen 800 mg PO Q8H PRN Tobacco use date assessed: 11/16/23 Dental Screening Dental Screen Date: 11/16/23 Did you have a dental visit in the last 12 months?: Yes Did you have a dental problem in the last 6 months where you did not have access to dental care?: No Was dental information given to patient?: Patient has dentist HPI Follow up HPI Details Patient comes in today for her follow up visit - was last seen by me over a year ago on 01/14/2022 States that she was laid up in bed for a while when she broke both of her ankles back in late 2021 States that she has been experiencing on and off orthostasis for the past couple of months, especially when she is getting up from sitting or lying down States that the symptoms would occur even if she takes her time and get up slowly She denies any headaches Denies any chest pains but has noticed (+) recurrent symptoms of tachycardia (feels like her heart is racing) recently - notes that this occurs independently of activity or exertion Notes (+) SOB when her tachycardia occurs - these would gradually subside after several minutes; states that she has never noticed any sensation of skipped beats or irregular heart beats Denies any nausea/vomiting, no abdominal pain Relates (+) frequent loose stools and postprandial diarrhea since she had her gallbladder surgery years ago Adds that she (along with her entire family) came down with influenza last month and she is currently still feeling fatigued often from her bout with the flu last month [facility] Medical History (Updated 11/16/23 @ 13:47 by Kelvin Celestin MD) Morbid obesity with BMI of 45.0-49.9, adult Metatarsal bone fracture Bimalleolar ankle fracture Morbid obesity with BMI of 50.0-59.9, adult Smoker Post traumatic stress disorder (PTSD) COVID-19 Fibromyalgia Surgical History History of laparoscopic cholecystectomy (~2007) Social History Housing: Apartment Alcohol intake: never Patient Tobacco Use Status: Current everyday Tobacco user Tobacco use type: Cigarette Cigarettes Per Day: 10 e-Cigarette/Vaping Use: Currently Using Second Hand Smoke Exposure: Yes Substance Use Type: Marijuana service: No Current occupational status: student Sexual orientation: Straight/Heterosexual Gender identity: Female Cognitive needs: No Hearing needs: No Vision needs: No Questionnaire PHQ-9 Over the last 2 weeks, how often have you been bothered by any of the following problems? 1. Little interest or pleasure in doing things: not at all 2. Feeling down, depressed, or hopeless: not at all 3. Trouble falling or staying asleep, or sleeping too much: not at all 4. Feeling tired or having little energy: not at all 5. Poor appetite or overeating: not at all 6. Feeling bad about yourself - or that you are a failure or have let yourself or your family down: not at all 7. Trouble concentrating on things, such as reading the newspaper or watching television: not at all 8. Moving or speaking so slowly that other people could have noticed. Or the opposite - being so fidgety or restless that you have been moving around a lot more than usual: not at all 9. Thoughts that you would be better off or of hurting yourself in some way: not at all Total score: 0 Depression Screening Interpretation: Negative Depression Screening Done: Yes 92065 - PHQ-9 Billing: Yes Source: Developed by Drs. Iván Iqbal, Milla Oneill, Joaquin Roman and colleagues, with an educational saskia from [employer]. Thrive Questionnaire Date Thrive assessed: 11/16/23 I am a: Patient What is your living situation today?: I have a steady place to live Within the past 12 months, did the food you bought not last and you didn't have the money to get more?: Never true Within the past 12 months, did you worry whether your food would run out before you got money to buy more?: Never true Do you have trouble paying for medicines?: No Do you have trouble getting transportation to medical appointments?: No Do you have trouble paying your heating and electricity bill?: No Do you have trouble taking care of your child, family member or friend?: No Do you have trouble with day-to-day activities such as bathing, preparing meals, shopping, managing finances, etc.?: No Are you currently unemployed and looking for a job?: No Are you interested in more education?: No Please select the resources that you would like help with: None Currently or been in a relationship where the following occur: no concerns reported THRIVE Score: 0 AUDIT C Alcohol Use Questionnaire (AUDIT-C) 1. How often do you have a drink containing alcohol?: Never 3. How often do you have six or more drinks on one occasion?: Never Total Score: 0 Score Reviewed/Action Taken: Yes ALEXANDRA-7 AMB Questionnaire ALEXANDRA-7 Date ALEXANDRA - 7 assessed: 11/16/23 Feeling nervous, anxious, or on edge: 1 = Several days Not being able to stop or control worryin = Several days Worrying too much about different things: 1 = Several days Trouble relaxin = Several days Being so restless that it is hard to sit still: 1 = Several days Becoming easily annoyed or irritable: 1 = Several days Feeling afraid as if something awful might happen: 1 = Several days Total ALEXANDRA-7 score (0-4 normal; 5-9 mild; 10-14 moderate; 15-21 severe): 7 Source: Developed by Drs. Iván Iqbal, Milla Oneill, Joaquin Roman and colleagues, with an educational saskia from [employer]. ALEXANDRA-7 Assessment Billing ALEXANDRA-7 Assessment Tool: ALEXANDRA-7 Assessment 55959 Review of Systems Const Denies chills, Reports fatigue, Denies fever(s) and Denies headache(s) Eyes Denies blurry vision ENT Denies dysphagia, Reports dizziness (on and off lately with changes in position - see HPI), Denies otalgia, Denies headache(s), Denies neck pain, Denies odynophagia and Denies sore throat Card Denies chest pain, Denies palpitations, Reports dyspnea (associated with her episodes of orthostasis) and Denies dyspnea on exertion Resp Denies chest congestion, Denies cough, Reports dyspnea (associated with her episodes of orthostasis), Denies dyspnea on exertion and Denies wheezing GI Denies abdominal pain, Denies constipation, Denies dysphagia, Denies heartburn, Reports diarrhea (s/p GB surgery), Reports loose stools (s/p GB surgery), Denies nausea, Denies odynophagia and Denies vomiting Denies difficulty voiding, Denies nocturia, Denies dysuria and Denies urinary urgency Musc Reports myalgias (diffuse - on and off (fibromyalgia)) and Denies neck pain Skin/Breast Denies rash Neuro Reports dizziness (on and off lately with changes in position - see HPI) and Denies headache(s) Endo Reports fatigue and Denies palpitations Aller/Immun Denies wheezing Physical exam (Primary Care) Vital Signs: Last Vital Signs Pulse 88 11/16/23 13:05 BP 112/70 11/16/23 13:05 Pulse Ox 98 11/16/23 13:05 Oxygen Delivery Method Room Air 11/16/23 13:05 BMI result Body Mass Index 49.0 Tobacco/Smoking Status: Tobacco use Status Tobacco use date assessed 11/16/23 11/16/23 13:10 Patient Tobacco Use Status Current everyday Tobacco 11/16/23 13:10 Tobacco use type Cigarette 11/16/23 13:10 e-Cigarette/Vaping Use Currently Using 11/16/23 13:10 PHQ-9: PHQ-9 Score PHQ-9: Total score 0 11/16/23 13:10 Depression Screening Interpretation: Negative Thrive Assessment: Date of Thrive Assessment Date Thrive assessed 11/16/23 11/16/23 13:10 Currently or been in a relationship where the following occur: no concerns reported Const General: no acute distress and alert HENMT Ears: TM's normal bilaterally and EAC's normal Throat: Yes posterior oropharynx normal and Yes tonsils normal (no TP congestion) Neck Neck: Yes no lymphadenopathy and Yes supple Thyroid: Thyroid normal Resp Auscultation: clear to auscultation bilaterally, no rales and no wheezes Cardio Rate: regular rate Rhythm: regular rhythm Heart sounds: no murmurs GI Palpation (GI): Soft to palpation and nontender Auscultation: normal bowel sounds General: Yes no CVA tenderness Back/Spine/Pelvis Back: no CVA tenderness Cervical Spine: cervical muscular tenderness (especially over the trapezius muscles bilaterally) Thoracic/Lumbar Spine: paraspinal muscle tenderness bilaterally in the upper thoracic and No lumbar spinal tenderness Skin Rashes: no rashes Extrem General: Yes no clubbing, cyanosis or edema Assessment and Plan Assessment & Plan (1) Orthostasis: Code(s): I95.1 - Orthostatic hypotension Plan: Will send patient for some labs DEWEY for further evaluation She is currently not taking any Rx that would be affecting her blood pressure (2) Tachycardia: Code(s): R00.0 - Tachycardia, unspecified Plan: Will send her for some labs and EKG DEWEY for further evaluation Advised that depending on how these initial tests come out, we may need to send her for some additional tests, including echocardiogram and unified communications architect but we will wait and see how her initial tests come out first (3) Fibromyalgia: Code(s): M79.7 - Fibromyalgia Plan: Encouraged again on regular exercise and physical activity to help manage her fibromyalgia symptoms Continue Gabapentin 800 mg TID (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 Plan: States that she's had her symptoms since her gall bladder surgery in 2007 and has gotten used to them by now Reinforced avoidance of fried / greasy or oily foods to minimize aggravating her diarrhea Advised that we can try her on Questran powder if needed to help minimize her symptoms Patient declined Rx at this time and states that she will call for the Rx if she changes her mind about this in the future (5) Post traumatic stress disorder (PTSD): Code(s): F43.10 - Post-traumatic stress disorder, unspecified Plan: Follow up with psychiatry as scheduled (6) Smoker: Code(s): F17.200 - Nicotine dependence, unspecified, uncomplicated Plan: Counseled again on smoking cessation (7) Morbid obesity with BMI of 45.0-49.9, adult: Code(s): E66.01 - Morbid (severe) obesity due to excess calories; Z68.42 - Body mass index [BMI] 45.0-49.9, adult Plan: Reinforced diet/exercise as tolerated/lose weight - she has lost a lot of weight since I last saw her in January 2022 Plan Follow up in 3 months and PRN Orders: Orders Complete Blood Count Auto Diff Today D64.9 - Anemia, unspecified, I95.1 - Orthostatic hypotension, R00.0 - Tachycardia, unspecified Comprehensive [place]. Panel Fast Today I95.1 - Orthostatic hypotension, R00.0 - Tachycardia, unspecified UA CC w/rflx Micro + Cult Today I95.1 - Orthostatic hypotension, R00.0 - Tachycardia, unspecified, R30.0 - Dysuria Vitamin D 25-OH Total Today E55.9 - Vitamin D deficiency, unspecified, I95.1 - Orthostatic hypotension, R00.0 - Tachycardia, unspecified Cortisol Random Today I95.1 - Orthostatic hypotension, R00.0 - Tachycardia, unspecified ECG 12 lead EKG Today I95.1 - Orthostatic hypotension, R00.0 - Tachycardia, unspecified Lipid Panel Today E78.00 - Pure hypercholesterolemia, unspecified, I95.1 - Orthostatic hypotension, R00.0 - Tachycardia, unspecified TSH reflex Free T4 Today I95.1 - Orthostatic hypotension, R00.0 - Tachycardia, unspecified Erythrocyte Sedimentation Rate Today I95.1 - Orthostatic hypotension, R00.0 - Tachycardia, unspecified Coding Level of Care Code Est Pt Level 4 (28191) Diagnoses Orthostasis I95.1 Tachycardia R00.0 Fibromyalgia M79.7 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 Post traumatic stress disorder (PTSD) F43.10 Smoker F17.200 Morbid obesity with BMI of 45.0-49.9, adult E66.01; Z68.42 Additional Codes ALEXANDRA-7 Assessment Billing - ALEXANDRA-7 Assessment Tool: ALEXANDRA-7 Assessment 03401 ([id number])
== END 2023-11-16 13:36 | disposition home or self-care (01) ==
PROVIDERS: PCP Internal Medicine; Visit Provider Internal Medicine
DX: I95.1 Orthostatic hypotension (principal); E66.01 Morbid (severe) obesity due to excess calories; Z68.42 Body mass index [BMI] 45.0-49.9, adult; F17.210 Nicotine dependence, cigarettes, uncomplicated; R00.0 Tachycardia, unspecified; M79.7 Fibromyalgia; K91.5 Postcholecystectomy syndrome; F43.10 Post-traumatic stress disorder, unspecified
CPT/HCPCS: 99214

== ENCOUNTER 2023-11-17 10:31 | Outpatient (REF) | payer OTHER, SELFPAY ==
--- NOTE | 2023-11-17 10:35 | ECG_ITS ---
Test Reason : HTN ORTHO STATIC Blood Pressure : / mmHG Vent. Rate : 074 BPM Atrial Rate : 074 BPM P-R Int : 116 ms QRS Dur : 070 ms QT Int : 374 ms P-R-T Axes : 007 061 024 degrees QTc Int : 415 ms Normal sinus rhythm Normal ECG No previous ECGs available Referred By: Kelvin Celestin Electronically Signed By:DEVANTE HAYDEN
[2023-11-17 10:57] LABS: MANUAL DIFF FLAG NO
[2023-11-17 11:54] LABS: Basophils Percent Auto 0.6 % (0-2); Eosinophils Absolute Auto 0.1 X10*3/uL (0.0-0.4); Eosinophils Percent Auto 1.1 % (0-4); Hematocrit 41.8 % (37.0-47.0); Hemoglobin 13.6 g/dl (12.0-16.0); Imm Gran Abs Auto 0.02 X10*3/uL (0.00-0.03); Imm Gran Pct Auto 0.3 % (0.0-0.4); Lymphocytes Absolute Auto 2.1 X10*3/uL (1.2-4.9); Lymphocytes Percent Auto 31.1 % (20-40); Mean Corpuscular HGB Conc 32.5 g/dl (31.0-35.0); Mean Corpuscular Hemoglobin 25.7 pg (27.0-33.0); Mean Platelet Volume 10.4 fL (9.4-12.3); Monocytes Absolute Auto 0.4 X10*3/uL (0.1-1.2); Monocytes Percent Auto 5.8 % (2-11); Neutrophils Percent Auto 61.1 % (45-73); Platelet Count 281 X10*3/uL (160-400); Red Blood Count 5.29 X10*6/uL (4.20-5.50); Red Cell Distribution Width 16.1 % (11.0-16.0); White Blood Count 6.6 X10*3/uL (4.8-10.8)
[2023-11-17 12:36] LABS: Erythrocyte Sedimentation Rate 14 MM/HR (0-20)
[2023-11-17 12:41] LABS: Alanine Aminotransferase 15 U/L (0-31); Albumin Level 3.9 g/dL (3.5-5.0); Alkaline Phosphatase 112 U/L (39-117); Anion Gap 15 (12-20); Aspartate Amino Transferase 15 U/L (5-31); Bilirubin Total 0.4 mg/dL (0.0-1.0); Blood Urea Nitrogen 11 mg/dL (9-16); Carbon Dioxide 25 mmol/L (22-29); Chloride 107 mmol/L (96-108); Cholesterol 187 mg/dL (<200); Estimated Glomerular Filt Rate > 60; Glucose Fasting 93 mg/dL (60-99); HDL Cholesterol 45 mg/dL (>40); LDL Cholesterol Calculated 124 mg/dL (<100); Potassium 3.9 mmol/L (3.3-5.1); Sodium 143 mmol/L (135-145); Total Protein 7.2 g/dL (6.5-8.0); Triglycerides 92 mg/dL (<150)
[2023-11-17 12:50] LABS: TSH reflex Free T4 0.71 uIU/mL (0.32-4.0); Vitamin D 25-OH Total 10.1 ng/mL (>30)
[2023-11-17 12:51] LABS: Cortisol Random 5.2 ug/dL
[2023-11-17 13:59] LABS: Appearance Urine Cloudy; Color Urine Yellow; Glucose Urine UA Negative (Negative); Leukocyte Esterase Urine Moderate (2+) (Negative); Nitrite Urine Negative (Negative); PH 5.5 (5.0-9.0); Specific Gravity - Urine 1.025 (1.005-1.025); UMIC TRIGGER UACC YES; Urine Blood Negative (Negative); Urine Ketones Trace mg/dL (Negative); Urine Protein Negative (Neg-Trace)
[2023-11-17 14:18] LABS: Bacteria Urine 4+ (None Seen); Hyaline Casts Urine 0-2 /LPF (0-2); RBC Urine 0-2 /HPF (0-2); Squamous Epithelial Cell Urine >20 /HPF (0-2); WBC Urine 0-5 /HPF (0-5)
== END 2023-11-17 10:32 | disposition home or self-care (01) ==
LOC: HO.LAB 10:31
PROVIDERS: PCP Internal Medicine; Visit Provider Internal Medicine
DX: I95.1 Orthostatic hypotension (principal); R00.0 Tachycardia, unspecified; E55.9 Vitamin D deficiency, unspecified; E78.00 Pure hypercholesterolemia, unspecified; D64.9 Anemia, unspecified
CPT/HCPCS: 36415; 80053; 80061; 81001; 81003; 82306; 82533; 84443; 85025; 85652; 93005

== ENCOUNTER → 2023-11-17 10:35 | Outpatient (BNV) | payer OTHER, SELFPAY | PROVIDERS: PCP Internal Medicine; Visit Provider Internal Medicine | DX: I95.1 Orthostatic hypotension (principal) | CPT/HCPCS: 93010 ==

== ENCOUNTER 2024-05-16 16:36 | Outpatient (AMB) | payer OTHER, SELFPAY ==
--- NOTE | 2024-05-16 16:36 | MHC.PC.OV ---
Vital Signs 05/16/24 16:38 Height 5 ft 3 in Weight 281 lb 8 oz BMI 49.9 BP 120/88 Blood Pressure Location Lt brachial Position Sitting Pulse 95 Pulse Source Pulse Oximeter Pulse Oximetry (%) 98 Oxygen Delivery Method Room Air Intake Visit Reasons: follow up Intake Note: The patient is here for ongoing dizziness and rapid heart rate while standing, and reports feeling lightheaded when standing or picking up objects from the ground. The patient states that these symptoms are worsening. Synthetic Cloth Binding Cutter Required: No Accompanied by: Self / Same As Patient Allergies cephalexin [From KEFLEX] Adverse Reaction (Intermediate, Verified 05/16/24 17:01) NAUSEA & VOMITING duloxetine [From CYMBALTA] Adverse Reaction (Intermediate, Verified 05/16/24 17:01) NAUSEA & VOMITING Medication List - Last Reconciled 05/16/24 by Kelvin Celestin MD chair, wheel (Wheel chair) As directed cholecalciferol (vitamin D3) 50 mcg PO DAILY 90 days commode (bedside commode) As directed gabapentin 800 mg PO TID ibuprofen 800 mg PO Q8H PRN Tobacco use date assessed: 11/16/23 Dental Screening Dental Screen Date: 11/16/23 HPI follow up HPI Details Patient comes in today for her follow up visit - was last seen in November 2023 States that she continues to experience recurrent dizziness and lightheadedness associated with sensation of rapid heart rate/tachcycardia mostly when she stands up or when she gets up from bending over to pick something off the ground States that these symptoms have been going on for months now and feels that they are getting worse and occurring more frequently States that she has been hardly going anywhere lately she gets very unsteady when she is moving around She denies any headaches Denies any chest pains but feels short of breath when her heart rate goes up No nausea/vomiting, no abdominal pain No change in bowel habits noted She had some labs and EKG done a few months ago and would like to know how these came out [facility] Medical History Morbid obesity with BMI of 45.0-49.9, adult Metatarsal bone fracture Bimalleolar ankle fracture Morbid obesity with BMI of 50.0-59.9, adult Smoker Post traumatic stress disorder (PTSD) COVID-19 Fibromyalgia Surgical History History of laparoscopic cholecystectomy (~2007) Social History Housing: Apartment Alcohol intake: never Patient Tobacco Use Status: Current everyday Tobacco user Tobacco use type: Cigarette Cigarettes Per Day: 10 e-Cigarette/Vaping Use: Currently Using Second Hand Smoke Exposure: Yes Substance Use Type: Marijuana service: No Current occupational status: student Sexual orientation: Straight/Heterosexual Gender identity: Female Cognitive needs: No Hearing needs: No Vision needs: No Questionnaire Thrive Questionnaire Date Thrive assessed: 11/16/23 ALEXANDRA-7 AMB Questionnaire ALEXANDRA-7 Date ALEXANDRA - 7 assessed: 11/16/23 Source: Developed by Drs. Iván Iqbal, Milla Oneill, Joaquin Roman and colleagues, with an educational saskia from [employer]. Review of Systems Const Denies chills, Reports fatigue, Denies fever(s) and Denies headache(s) ENT Denies dysphagia, Reports dizziness (recurrent, most often with changes in position - see HPI), Denies otalgia, Denies headache(s), Denies neck pain, Denies odynophagia and Denies sore throat Card Denies chest pain, Reports palpitations (often triggered when she stands up), Reports dyspnea (associated with her episodes of orthostasis and tachycardia) and Reports dyspnea on exertion (mild) Resp Denies chest congestion, Denies cough, Reports dyspnea (associated with her episodes of orthostasis and tachycardia), Reports dyspnea on exertion (mild) and Denies wheezing GI Denies abdominal pain, Denies constipation, Denies dysphagia, Denies heartburn, Reports diarrhea (s/p GB surgery), Reports loose stools (s/p GB surgery), Denies nausea, Denies odynophagia and Denies vomiting Denies difficulty voiding, Denies nocturia, Denies dysuria and Denies urinary urgency Musc Reports myalgias (diffuse - on and off (fibromyalgia)) and Denies neck pain Skin/Breast Denies rash Neuro Reports dizziness (recurrent, most often with changes in position - see HPI), Denies headache(s) and Denies paresthesias Psych Reports anxiety Endo Reports fatigue and Reports palpitations (often triggered when she stands up) Aller/Immun Denies wheezing Physical exam (Primary Care) Vital Signs: Last Vital Signs Pulse 95 05/16/24 16:38 BP 120/88 05/16/24 16:38 Pulse Ox 98 05/16/24 16:38 Oxygen Delivery Method Room Air 05/16/24 16:38 BMI result Body Mass Index 49.9 Tobacco/Smoking Status: Tobacco use Status Tobacco use date assessed 11/16/23 05/16/24 16:36 Patient Tobacco Use Status Current everyday Tobacco 05/16/24 16:36 Tobacco use type Cigarette 05/16/24 16:36 e-Cigarette/Vaping Use Currently Using 05/16/24 16:36 Thrive Assessment: Date of Thrive Assessment Date Thrive assessed 11/16/23 05/16/24 16:36 Const General: no acute distress and alert HENMT Ears: TM's normal bilaterally and EAC's normal Throat: Yes posterior oropharynx normal and Yes tonsils normal (no TP congestion) Neck Neck: Yes no lymphadenopathy and Yes supple Thyroid: Thyroid normal Carotids: no bruits Resp Auscultation: clear to auscultation bilaterally, no rales and no wheezes Cardio Rate: regular rate Rhythm: regular rhythm Heart sounds: no murmurs GI Palpation (GI): Soft to palpation and nontender Auscultation: normal bowel sounds General: Yes no CVA tenderness Back/Spine/Pelvis Back: no CVA tenderness Cervical Spine: cervical muscular tenderness (especially over the trapezius muscles bilaterally) Thoracic/Lumbar Spine: paraspinal muscle tenderness bilaterally in the upper thoracic and No lumbar spinal tenderness Skin Rashes: no rashes Extrem General: Yes no clubbing, cyanosis or edema Results Reviewed Results Reviewed: Laboratory Tests 11/17/23 11/17/23 10:45 10:54 WBC 6.6 Hgb 13.6 Hct 41.8 Plt Count 281 D Sodium 143 Potassium 3.9 Creatinine 0.88 Estimated GFR > 60 Fasting Glucose 93 Calcium 9.0 D AST 15 ALT 15 Triglycerides 92 Cholesterol 187 LDL Cholesterol, Calc 124 H HDL Cholesterol 45 25-OH Vitamin D Total 10.1 L TSH 0.71 Random Cortisol 5.2 Ur Specific [place] 1.025 Urine Protein Negative Urine Glucose (UA) Negative Urine Blood Negative Urine Nitrite Negative Ur Leukocyte Esterase Moderate (2+) H Assessment and Plan Assessment & Plan (1) Orthostasis: Code(s): I95.1 - Orthostatic hypotension Plan: Patient is again advised that she is currently not taking any medications that would be affecting her blood pressure Results of her labs done back in November 2023 reviewed and discussed with patient - have advised her that other than a low vitamin-D level, all of her labs came back normal, including her CBC, electrolytes and thyroid levels EKG done in November 2023 was also normal She had a random cortisol level that came back somewhat on the low side of normal and will need further evaluation if adrenal insufficiency is suspected For now, will send her for an echocardiogram for further evaluation and if her echocardiogram comes back normal, will consider working her up for adrenal insufficiency (2) Tachycardia: Code(s): R00.0 - Tachycardia, unspecified Plan: Have advised patient that her labs and EKG done back in November 2023 came back normal, except for a low vitamin D level Will now send her for echocardiogram for further evaluation Will also refer her to cardiology for further evaluation and management - patient may need cardiac monitoring and possible tilt-table testing - to consider POTS as a possible cause of her recent recurrent symptoms of postural dizziness and tachycardia (3) Fibromyalgia: Code(s): M79.7 - Fibromyalgia Plan: Patient is encouraged again on regular exercise and physical activity to help manage her fibromyalgia symptoms but to hold off on these for now until her postural dizziness and tachycardia are evaluated further Continue Gabapentin 800 mg TID (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 Plan: States that she's had these symptoms since her gall bladder surgery in 2007 and has gotten used to them by now Reinforced avoidance of fried / greasy or oily foods to minimize aggravating her diarrhea Advised that we can try her on Questran powder if needed to help minimize her symptoms - patient declined Rx and states that she will call if she changes her mind (5) Post traumatic stress disorder (PTSD): Code(s): F43.10 - Post-traumatic stress disorder, unspecified Plan: Follow up with psychiatry as scheduled (6) Smoker: Code(s): F17.200 - Nicotine dependence, unspecified, uncomplicated Plan: Counseled again on smoking cessation (7) Morbid obesity with BMI of 45.0-49.9, adult: Code(s): E66.01 - Morbid (severe) obesity due to excess calories; Z68.42 - Body mass index [BMI] 45.0-49.9, adult Plan: Reinforced diet/exercise as tolerated/lose weight Plan Follow up in 3 months Orders: Orders CA echo transthoracic complete 05/16/24 I95.1 - Orthostatic hypotension, R42 - Dizziness and giddiness Referrals Cardiology Referral I95.1 - Orthostatic hypotension, R42 - Dizziness and giddiness Coding Level of Care Code Est Pt Level 4 (90828) Diagnoses Orthostasis I95.1 Tachycardia R00.0 Fibromyalgia M79.7 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 Post traumatic stress disorder (PTSD) F43.10 Smoker F17.200 Morbid obesity with BMI of 45.0-49.9, adult E66.01; Z68.42
[2024-05-16 16:38] VITALS: BP 120/88; PULSE 95; O2SAT 98; BMI 49.9
== END 2024-05-16 17:14 | disposition home or self-care (01) ==
PROVIDERS: PCP Internal Medicine; Visit Provider Internal Medicine
DX: I95.1 Orthostatic hypotension (principal); R00.0 Tachycardia, unspecified; E66.01 Morbid (severe) obesity due to excess calories; Z68.42 Body mass index [BMI] 45.0-49.9, adult; F43.10 Post-traumatic stress disorder, unspecified; M79.7 Fibromyalgia; K91.5 Postcholecystectomy syndrome; F17.200 Nicotine dependence, unspecified, uncomplicated
CPT/HCPCS: 99214

== ENCOUNTER → 2024-06-07 14:04 | Outpatient (RCR) | payer OTHER, SELFPAY ==
[2020-08-03 16:00] LABS: MANUAL DIFF FLAG NO
[2020-08-03 16:03] LABS: Basophils Percent Auto 0.6 % (0-2); Eosinophils Absolute Auto 0.1 X10*3/uL (0.0-0.4); Eosinophils Percent Auto 1.7 % (0-4); Hemoglobin 13.2 g/dl (12.0-16.0); Imm Gran Abs Auto 0.01 X10*3/uL (0.00-0.03); Imm Gran Pct Auto 0.1 % (0.0-0.4); Lymphocytes Absolute Auto 2.1 X10*3/uL (1.2-4.9); Mean Corpuscular HGB Conc 32.2 g/dl (31.0-35.0); Monocytes Absolute Auto 0.5 X10*3/uL (0.1-1.2); Monocytes Percent Auto 6.5 % (2-11); Neutrophils Absolute Auto 4.4 X10*3/uL (2.0-8.3); Neutrophils Percent Auto 62.1 % (45-73); Platelet Count 219 X10*3/uL (160-400); Red Blood Count 4.71 X10*6/uL (4.20-5.50); Red Cell Distribution Width 13.4 % (11.0-16.0); White Blood Count 7.1 X10*3/uL (4.8-10.8)
[2020-08-03 16:15] VITALS: BP 127/89; PULSE 98; RESP 18; TEMP 36.8; O2SAT 97
[2020-08-03 16:18] VITALS: BP 127/89; PULSE 98; RESP 18; TEMP 36.8; O2SAT 97
[2020-08-03 16:23] VITALS: BMI 52.9
[2020-08-03 16:41] LABS: HCG Quantitative 403 mIU/mL
[2020-08-03 16:42] LABS: Alanine Aminotransferase 30 U/L (0-31); Aspartate Amino Transferase 21 U/L (5-31); Blood Urea Nitrogen 10 mg/dL (9-16); Creatinine Clr Calc Pharmacy 138.6; Estimated Glomerular Filt Rate > 60
--- NOTE | 2020-08-03 17:34 | MHC.HEMONC ---
Patient here for Methotrexate injection due to ectopic . Educated on aftercare instructions and will follow up on Thursday with OBGYN office.
== END | disposition home or self-care (01) ==
LOC: HO.ONC 08-03 15:57
PROVIDERS: PCP Internal Medicine; Visit Provider Obstetrics & Gynecology
DX: O00.90 Unspecified ectopic pregnancy without intrauterine pregnancy (principal)
CPT/HCPCS: 36415; 82565; 84450; 84460; 84520; 84702; 85025; 86850; 86900; 86901; 96401; J9250

== ENCOUNTER → 2024-06-27 10:58 | Outpatient (REF) | payer OTHER, SELFPAY ==
--- NOTE | 2024-06-27 11:02 | CA_ITS ---
Transthoracic Echocardiogram Patient (Last, First, Middle): Imelda Workman M Gender: Female Date of : 1985 Age: 39 Procedure Date: 06/27/2024 Procedure Type: Transthoracic Echocardiogram Location: OP Height: 160.02 cm Weight: 124.74 kg BSA: 2.21 m2 Heart Rate: bpm BP: 118 / 74 mmHg Bath Mix Operator: Referring MD: Kelvin Celestin MD Service Clerk: Tee Bright MD Symptoms: I95.1 - Orthostatic hypotension Study Quality: Fair ECG Rhythm: Sinus Conclusions: - Essentially normal study Findings Procedure Information Contrast agent, definity, is being given per protocol without apparent complications. Left Ventricle Normal left ventricular size, thickness, and systolic function. The visually estimated ejection fraction is between 60-65%. Spectral Doppler is indicative of a normal filling pattern. Right Ventricle Normal right ventricular cavity size and systolic function. Atria Both atria are normal in size. There is no evidence of interatrial shunt. Aortic Valve Normal aortic valve structure and function. There is no aortic valve stenosis. There is no aortic valve regurgitation. Mitral Valve Normal mitral valve structure and function. There is trace mitral valve regurgitation. There is no mitral valve stenosis. Pulmonic Valve The pulmonic valve is likely normal. There is trace pulmonic valve regurgitation. Tricuspid Valve Normal tricuspid valve structure. There is trace tricuspid valve regurgitation. The right ventricular systolic pressure is normal. The right ventricular systolic pressure is 13 mmHg. Normal right atrial pressure. There is no evidence of pulmonary hypertension. Great Vessels All visible segments of the aorta are normal in size. The pulmonary artery was not well visualized. Venous The inferior vena cava is normal in size and collapses greater than 50% with inspiration. Pericardium/Pleural There is no evidence of pericardial effusion. Prior Study Comparison No prior study available for comparison. Measurements 2D Linear Measurements IVSd: 1.06 0.6-0.9/0.6-1.0 cm LVIDd: 4.25 3.9-5.3/4.2-5.9 cm LVIDd Index: 1.92 2.4-3.2/2.2-3.1 cm/m2 LVIDs: 2.62 2.0-3.6 cm LVPWd: 1.03 0.7-1.1 cm Ao Root: 2.90 2.1-3.5 cm LA Diam: 3.20 2.7-3.8/3.0-4.0 cm LAIDs Index: 1.45 1.5-2.3 cm/m2 LV Mass: 185.20 67-162/88-224 g LV Mass Index: 83.80 43-95/49-115 g/m2 LVOT Diam: 2.20 3.0+(-)1.3 cm Mitral Valve MV Pk E: 0.99 MV PK A: 0.94 MV Decel Time: 161.00 E/A: 1.10 E'Lateral: 13.60 E'Medial: 10.60 E/E' Med: 9.40 E/E' Lat: 7.30 PHT: 47.00 MVA PHT: 4.[address] [place]: 6.16 Aortic Valve AoV Pk Luis: 1.21 AoV Mn Lius: 0.87 AoV VTI: 0.27 AoV Pk Grad: 6.00 Aov Mn Grad: 4.00 GUIDO Cont.VTI: 3.15 LVOT LVOT Pk Luis: 1.00 LVOT Mn Luis: 0.71 LVOT VTI: 0.23 LVOT Pk Grad: 4.00 LVOT Mn Grad: 2.00 LVOT Diam: 2.20 LVOT Area: 3.80 Diastolic Function MV Pk E: 0.99 MV Pk A: 0.94 E/A: 1.10 E'Medial: 10.60 E/E' Med: 9.40 E' Laterial: 13.60 E/E' Lat: 7.30 Right Ventricle TAPSE (mm): 23.00 TVS' Luis: 11.00 Tricuspid Valve TR Pk Luis: 1.61 TR Pk Grad: 10.00 RA Press: 3.00 RVSP: 13.00 Great Vessels Aorta Ao Root-2D: 2.90 2.0-3.7 cm Ao Asc: 2.80 2.1-3.4 cm Pulmonary Valve PV Pk Luis: 0.86 Peak PV Grad: 3.00 Updated in Other Vendor System with Status of Final Tee Bright MD electronically signed on 06/28/2024 2:59:14 PM with status of Final
== END ==
LOC: HO.CARD 10:58
PROVIDERS: PCP Internal Medicine; Visit Provider Internal Medicine
DX: I95.1 Orthostatic hypotension (principal); R42 Dizziness and giddiness
CPT/HCPCS: 93306; 99212; Q9957

== ENCOUNTER 2024-06-27 12:38 | Outpatient (AMB) | payer OTHER, SELFPAY ==
--- NOTE | 2024-06-27 12:46 | A.OFFVIS_ITS ---
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0-59.9, adult Smoker Post traumatic stress disorder (PTSD) COVID-19 Fibromyalgia Surgical History (Updated 06/27/24 @ 12:51 by Brooke Burgos) History of ankle surgery History of laparoscopic cholecystectomy (~2007) Social History Housing: Apartment Alcohol intake: never Patient Tobacco Use Status: Current everyday Tobacco user Tobacco use type: Cigarette Cigarettes Per Day: 10 e-Cigarette/Vaping Use: Currently Using Second Hand Smoke Exposure: Yes Substance Use Type: Marijuana service: No Current occupational status: student Sexual orientation: Straight/Heterosexual Gender identity: Female Cognitive needs: No Hearing needs: No Vision needs: No Review of Systems Const Denies weakness ENT Reports dizziness Card Denies chest pain, Denies chest pain with activity, Denies syncope, Denies rapid heart rate, Denies pedal edema, Denies edema, Denies leg edema, Denies lightheadedness, Reports palpitations, Denies dyspnea, Denies dyspnea on exertion and Denies orthopnea Resp Denies cough, Denies dyspnea and Denies dyspnea on exertion GI Denies hematochezia and Denies change in stool character Musc Denies abnormal gait, Denies muscle cramps, Denies muscle weakness, Denies numbness, Denies radiating pain into limb and Denies tingling Neuro Denies abnormal gait, Reports dizziness, Denies syncope, Denies numbness, Denies tingling and Denies weakness Endo Reports palpitations Physical Exam Vital Signs: Last Vital Signs Pulse 92 06/27/24 12:47 BP 128/60 06/27/24 12:47 BMI result Body Mass Index 50.4 Assessment & Plan Assessment & Plan Orders: Orders ECG Tilt Table Test Today R42 - Dizziness and giddiness ECG 3 day holter monitor Today R00.0 - Tachycardia, unspecified, R00.2 - Palpitations Coding
[2024-06-27 12:47] VITALS: BP 128/60; PULSE 92; BMI 50.4
--- NOTE | 2024-06-27 13:28 | MHC.OFFVIS ---
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 She states that whenever she tries to get up from seated position, she may feel dizzy and at the same time, she feels her heart racing. When she lies down, symptoms feel better. She states that she has had these symptoms for the last 6 months or so. No known coronary disease, myocardial infarction or cardiomyopathy. Main comorbidities seem to be morbid obesity as well as active smoking. Also, history of fibromyalgia. [facility] Medical History (Updated 06/27/24 @ 13:31 by Gael El MD) Morbid obesity with BMI of 45.0-49.9, adult Metatarsal bone fracture Bimalleolar ankle fracture Morbid obesity with BMI of 50.0-59.9, adult Smoker Post traumatic stress disorder (PTSD) COVID-19 Fibromyalgia Surgical History (Updated 06/27/24 @ 12:51 by Brooke Burgos) History of ankle surgery History of laparoscopic cholecystectomy (~2007) Social History Housing: Apartment Alcohol intake: never Patient Tobacco Use Status: Current everyday Tobacco user Tobacco use type: Cigarette Cigarettes Per Day: 10 e-Cigarette/Vaping Use: Currently Using Second Hand Smoke Exposure: Yes Substance Use Type: Marijuana service: No Current occupational status: student Sexual orientation: Straight/Heterosexual Gender identity: Female Cognitive needs: No Hearing needs: No Vision needs: No Review of Systems Const All systems reviewed & are unremarkable except as noted in HPI and below Reports as per HPI and Reports no additional complaints Eyes Reports as per HPI and Denies no additional complaints ENT Denies no additional complaints and Reports as per HPI Card Reports as per HPI, Reports no additional complaints, Denies acrocyanosis, Denies chest pain, Denies leg edema, Reports lightheadedness, Reports palpitations and Denies dyspnea Resp Reports as per HPI, Denies no additional complaints and Denies dyspnea GI Reports as per HPI and Denies no additional complaints Reports as per HPI Musc Reports no additional complaints and Reports as per HPI Skin/Breast Reports system reviewed and no additional complaints, except as documented Neuro Reports no additional complaints and Reports as per HPI Psych Reports no additional complaints and Reports as per HPI Endo Reports no additional complaints, Reports as per HPI and Reports palpitations Adolfo/Lymph Reports no additional complaints and Reports as per HPI Aller/Immun Reports no additional complaints and Reports as per HPI Physical Exam Vital Signs: Last Vital Signs Pulse 92 06/27/24 12:47 BP 128/60 06/27/24 12:47 BMI result Body Mass Index 50.4 Const General: comfortable and no acute distress Orientation/consciousness: patient oriented x3 HEENT Other: Unremarkable Head: Yes normal to inspection Neck Neck: Yes normal visual inspection Chest Chest palpation & inspection: normal inspection of the chest Resp Auscultation: clear to auscultation bilaterally Cardio Palpation: normal PMI Heart sounds: S1 normal heart sound present, S2 normal heart sound present, no gallops, no murmurs and no rubs GI Palpation (GI): Soft to palpation Back/Spine/Pelvis Other: unremarkable Skin General skin exam: no rashes or lesions noted Neuro General: patient oriented x3 Extrem General: Yes normal to inspection Psych Mental Status: mental status grossly normal Quality Reporting (2019) Adult ([facility] ) Body Mass Index: 50.4 Assessment & Plan Assessment & Plan (1) Dizziness: Code(s): R42 - Dizziness and giddiness Category: Medical (2) Palpitations: Code(s): R00.2 - Palpitations Category: Medical (3) Morbid obesity with BMI of 50.0-59.9, adult: Code(s): E66.01 - Morbid (severe) obesity due to excess calories; Z68.43 - Body mass index [BMI] 50.0-59.9, adult Category: Medical (4) Smoker: Code(s): F17.200 - Nicotine dependence, unspecified, uncomplicated Category: Social Hx Plan Baseline EKG with underlying sinus rhythm at 74/Min; no significant ST-T changes and otherwise unremarkable. Normal VA and corrected QT. Echocardiogram getting completed today. Otherwise, symptoms possibly related to orthostatic hypotension. Will need further assessment in that regard. Obtain tilt-table testing. Holter monitor. Discussed about smoking cessation. Precautions for orthostatic hypotension including getting up slowly from seated position, using mechanical support extra discussed. Adequate hydration and salt intake but not excessive. Follow-up in a few weeks' time. Orders: Orders ECG Tilt Table Test Today R42 - Dizziness and giddiness ECG 3 day holter monitor Today R00.0 - Tachycardia, unspecified, R00.2 - Palpitations Coding Level of Care Code New Pt Level 3 (58909) Diagnoses Dizziness R42 Palpitations R00.2 Morbid obesity with BMI of 50.0-59.9, adult E66.01; Z68.43 Smoker F17.200
[2024-06-27 13:35] VITALS: BMI 50.4
== END 2024-06-27 13:40 | disposition home or self-care (01) ==
PROVIDERS: PCP Internal Medicine; Visit Provider Internal Medicine
DX: R00.2 Palpitations (principal); E66.01 Morbid (severe) obesity due to excess calories; Z68.43 Body mass index [BMI] 50.0-59.9, adult; F17.200 Nicotine dependence, unspecified, uncomplicated; R42 Dizziness and giddiness
CPT/HCPCS: 93306; 99213

== ENCOUNTER → 2024-08-01 11:22 | Outpatient (REF) | payer OTHER, SELFPAY ==
--- NOTE | 2024-08-01 11:26 | HM_ITS ---
* Total monitoring time 3 days. * Underlying rhythm is sinus with an average rate of 92/Min. About 38% of the time, rate > 100/Min. * Rare supraventricular ectopy. * No significant pauses or high-grade AV blocks. * Diary symptoms including dizziness, lightheadedness, rapid heartbeat associated with sinus tachycardia. MTDD
== END ==
LOC: HO.CARD 11:22
PROVIDERS: PCP Internal Medicine; Visit Provider Internal Medicine
DX: R00.2 Palpitations (principal); R00.0 Tachycardia, unspecified
CPT/HCPCS: 93242

== ENCOUNTER → 2024-08-01 11:26 | Outpatient (BNV) | payer OTHER, SELFPAY | PROVIDERS: PCP Internal Medicine; Visit Provider Internal Medicine | DX: I47.10 Supraventricular tachycardia, unspecified (principal) | CPT/HCPCS: 93244 ==

== ENCOUNTER 2025-02-16 11:30 | Outpatient (AMB) | payer OTHER, SELFPAY ==
[2025-02-16 11:33] VITALS: BP 110/84; PULSE 80; O2SAT 97; BMI 50.3
--- NOTE | 2025-02-16 11:33 | MHC.PC.OV ---
Vital Signs 02/16/25 11:33 02/16/25 11:40 02/16/25 11:40 02/16/25 11:40 Height 5 ft 3 in Weight 284 lb BMI 50.3 BP 110/84 102/80 112/80 106/84 Blood Pressure Location Lt brachial Rt brachial Rt brachial Rt brachial Position Sitting Supine Sitting Standing Pulse 80 75 82 97 Pulse Source Pulse Oximeter Pulse Oximeter Pulse Oximeter Pulse Oximeter Pulse Oximetry (%) 97 98 97 98 Oxygen Delivery Method Room Air Room Air Room Air Room Air Intake Visit Reasons: orthostatic dizziness Planning Management It Specialist Required: No Accompanied by: Self / Same As Patient Allergies cephalexin [From KEFLEX] Adverse Reaction (Intermediate, Verified 02/16/25 12:02) NAUSEA & VOMITING duloxetine [From CYMBALTA] Adverse Reaction (Intermediate, Verified 02/16/25 12:02) NAUSEA & VOMITING Medication List - Last Reconciled 02/16/25 by Kelvin Celestin MD chair, wheel (Wheel chair) As directed cholecalciferol (vitamin D3) 50 mcg PO DAILY 90 days commode (bedside commode) As directed gabapentin 800 mg PO TID ibuprofen 800 mg PO Q8H PRN Tobacco use date assessed: 02/16/25 Dental Screening Dental Screen Date: 02/16/25 Did you have a dental visit in the last 12 months?: No Did you have a dental problem in the last 6 months where you did not have access to dental care?: No Was dental information given to patient?: No HPI orthostatic dizziness HPI Details Patient comes in today for her follow up visit States that she is still experiencing occasional brief spells of dizziness but they have not been occurring as often as before Patient thinks that a lot of her symptoms were due to increased stress last year as she recalls that they were facing eviction from their home back then when she was experiencing the above symptoms She had work ups done, including echocardiogram, extended Holter monitor and tilt table testing, back in June through July 2024 and all of her tests came back normal States that she is currently still under a lot of stress but for different reasons and she is currently in therapy regularly and feels that this has helped a lot She hopes to avoid taking any Rx for her anxiety as she does not really like taking those kinds of medications She denies any headaches Denies any chest pains, no increased SOB No nausea/vomiting, no abdominal pain No change in bowel habits noted [facility] Medical History (Updated 02/16/25 @ 12:09 by Kelvin Celestin MD) Morbid obesity with BMI of 45.0-49.9, adult Metatarsal bone fracture Bimalleolar ankle fracture Morbid obesity with BMI of 50.0-59.9, adult Smoker Post traumatic stress disorder (PTSD) COVID-19 Fibromyalgia Surgical History History of ankle surgery History of laparoscopic cholecystectomy (~2007) Social History Housing: Apartment Alcohol intake: never Patient Tobacco Use Status: Current everyday Tobacco user Tobacco use type: Cigarette Cigarettes Per Day: 10 e-Cigarette/Vaping Use: Currently Using Second Hand Smoke Exposure: Yes Substance Use Type: Marijuana service: No Current occupational status: student Sexual orientation: Straight/Heterosexual Gender identity: Female Cognitive needs: No Hearing needs: No Vision needs: No Questionnaire PHQ-9 Over the last 2 weeks, how often have you been bothered by any of the following problems? 1. Little interest or pleasure in doing things: not at all 2. Feeling down, depressed, or hopeless: not at all 3. Trouble falling or staying asleep, or sleeping too much: not at all 4. Feeling tired or having little energy: not at all 5. Poor appetite or overeating: not at all 6. Feeling bad about yourself - or that you are a failure or have let yourself or your family down: not at all 7. Trouble concentrating on things, such as reading the newspaper or watching television: not at all 8. Moving or speaking so slowly that other people could have noticed. Or the opposite - being so fidgety or restless that you have been moving around a lot more than usual: not at all 9. Thoughts that you would be better off or of hurting yourself in some way: not at all Total score: 0 Depression Screening Interpretation: Negative Depression Screening Done: Yes 64951 - PHQ-9 Billing: Yes Source: Developed by Drs. Iván Iqbal, Milla Oneill, Joaquin Roman and colleagues, with an educational saskia from [employer]. Thrive Questionnaire Date Thrive assessed: 02/16/25 I am a: Patient What is your living situation today?: I have a steady place to live Within the past 12 months, did the food you bought not last and you didn't have the money to get more?: Never true Within the past 12 months, did you worry whether your food would run out before you got money to buy more?: Never true Do you have trouble paying for medicines?: No Do you have trouble getting transportation to medical appointments?: No Do you have trouble paying your heating and electricity bill?: No Do you have trouble taking care of your child, family member or friend?: No Do you have trouble with day-to-day activities such as bathing, preparing meals, shopping, managing finances, etc.?: No Are you currently unemployed and looking for a job?: No Are you interested in more education?: No Please select the resources that you would like help with: None Currently or been in a relationship where the following occur: No concerns reported THRIVE Score: 0 AUDIT C Alcohol Use Questionnaire (AUDIT-C) 1. How often do you have a drink containing alcohol?: Never 3. How often do you have six or more drinks on one occasion?: Never Total Score: 0 Score Reviewed/Action Taken: Yes ALEXANDRA-7 AMB Questionnaire ALEXANDRA-7 Date ALEXANDRA - 7 assessed: 02/16/25 Feeling nervous, anxious, or on edge: 0 = Not at all Not being able to stop or control worryin = Not at all Worrying too much about different things: 0 = Not at all Trouble relaxin = Several days Being so restless that it is hard to sit still: 1 = Several days Becoming easily annoyed or irritable: 1 = Several days Feeling afraid as if something awful might happen: 0 = Not at all Total ALEXANDRA-7 score (0-4 normal; 5-9 mild; 10-14 moderate; 15-21 severe): 3 Source: Developed by Drs. Iván Iqbal, Milla Oneill, Joaquin Roman and colleagues, with an educational saskia from [employer]. Review of Systems Const Denies chills, Denies fatigue, Denies fever(s) and Denies headache(s) ENT Denies dysphagia, Reports dizziness (occasionally, occurring much less frequently than last year), Denies otalgia, Denies headache(s), Denies neck pain, Denies odynophagia and Denies sore throat Card Denies chest pain, Denies irregular heart rhythm, Denies palpitations and Denies dyspnea Resp Denies chest congestion, Denies cough and Denies dyspnea GI Denies abdominal pain, Denies constipation, Denies dysphagia, Denies heartburn, Denies diarrhea, Denies nausea, Denies odynophagia and Denies vomiting Denies difficulty voiding, Denies nocturia, Denies dysuria and Denies urinary urgency Musc Reports myalgias (diffuse - on and off (fibromyalgia)) and Denies neck pain Skin/Breast Denies rash Neuro Reports dizziness (occasionally, occurring much less frequently than last year), Denies headache(s) and Denies paresthesias Psych Reports anxiety Endo Denies fatigue and Denies palpitations Physical exam (Primary Care) Vital Signs: Last Vital Signs Pulse 97 02/16/25 11:40 BP 106/84 02/16/25 11:40 Pulse Ox 98 02/16/25 11:40 Oxygen Delivery Method Room Air 02/16/25 11:40 BMI result Body Mass Index 50.3 Tobacco/Smoking Status: Tobacco use Status Tobacco use date assessed 02/16/25 02/16/25 11:42 Patient Tobacco Use Status Current everyday Tobacco 02/16/25 11:42 Tobacco use type Cigarette 02/16/25 11:42 e-Cigarette/Vaping Use Currently Using 02/16/25 11:42 PHQ-9: PHQ-9 Score PHQ-9: Total score 0 02/16/25 12:25 Depression Screening Interpretation: Negative Thrive Assessment: Date of Thrive Assessment Date Thrive assessed 02/16/25 02/16/25 11:42 Currently or been in a relationship where the following occur: No concerns reported Const General: no acute distress and alert HENMT Ears: TM's normal bilaterally and EAC's normal Throat: Yes posterior oropharynx normal and Yes tonsils normal (no TP congestion) Neck Neck: Yes supple and No lymphadenopathy Thyroid: Thyroid normal Resp Auscultation: clear to auscultation bilaterally, no rales and no wheezes Cardio Rate: regular rate Rhythm: regular rhythm Heart sounds: no murmurs GI Palpation (GI): Soft to palpation and nontender Auscultation: normal bowel sounds General: Yes no CVA tenderness Back/Spine/Pelvis Back: no CVA tenderness Thoracic/Lumbar Spine: No lumbar spinal tenderness Skin Rashes: no rashes Extrem General: Yes no clubbing, cyanosis or edema Coding Level of Care Code Est Pt Level 4 (41990) Diagnoses Dizziness R42 Fibromyalgia M79.7 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 Post traumatic stress disorder (PTSD) F43.10 Smoker F17.200 Morbid obesity with BMI of 50.0-59.9, adult E66.01; Z68.43 Additional Codes PHQ-9 - 49042 - PHQ-9 Billing: Yes ([id number]) Assessment & Plan Assessment & Plan (1) Dizziness: Code(s): R42 - Dizziness and giddiness Category: Medical Plan: She was experiencing frequent/recurrent dizziness and tachycardia last year but work ups done, including echocardiogram, extended Holter monitor and tilt table testing, back in June through July 2024 all came back normal Patient now admits that her recurrent dizziness back then was likely due to increased stress States that his symptoms have subsided significantly and occur only occasionally nowadays (2) Fibromyalgia: Code(s): M79.7 - Fibromyalgia Category: Medical Plan: Patient is encouraged again on regular exercise and physical activity to help manage her fibromyalgia symptoms Continue Gabapentin 800 mg TID (3) 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 Category: Medical Plan: Patient states that she's had these symptoms since her gall bladder surgery in 2007 and has gotten used to them by now Reinforced avoidance of fried / greasy or oily foods to minimize aggravating her diarrhea Have advised her in the past that we can try her on Questran powder if needed to help minimize her symptoms - patient declined Rx and states that she will call if she changes her mind (4) Post traumatic stress disorder (PTSD): Code(s): F43.10 - Post-traumatic stress disorder, unspecified Category: Medical Plan: Follow up with psychiatry as scheduled (5) Smoker: Code(s): F17.200 - Nicotine dependence, unspecified, uncomplicated Category: Social Hx Plan: Patient is again counseled on complete smoking cessation (6) Morbid obesity with BMI of 50.0-59.9, adult: Code(s): E66.01 - Morbid (severe) obesity due to excess calories; Z68.43 - Body mass index [BMI] 50.0-59.9, adult Category: Medical Plan: Reinforced diet/exercise as tolerated/lose weight Plan To return in 6 months for her next annual physical examination Patient is reminded to get her labs done just BEFORE she returns in 6 months Orders: Orders Complete Blood Count Auto Diff 6 Months D64.9 - Anemia, unspecified, Z00.00 - Encounter for general adult medical examination without abnormal findings Comprehensive [place]. Panel Fast 6 Months E78.00 - Pure hypercholesterolemia, unspecified, Z00.00 - Encounter for general adult medical examination without abnormal findings TSH reflex Free T4 6 Months E78.00 - Pure hypercholesterolemia, unspecified, Z00.00 - Encounter for general adult medical examination without abnormal findings Vitamin D 25-OH Total 6 Months E55.9 - Vitamin D deficiency, unspecified, Z00.00 - Encounter for general adult medical examination without abnormal findings Lipid Panel 6 Months E78.00 - Pure hypercholesterolemia, unspecified, Z00.00 - Encounter for general adult medical examination without abnormal findings UA CC w/rflx Micro + Cult 6 Months R30.0 - Dysuria, Z00.00 - Encounter for general adult medical examination without abnormal findings
[2025-02-16 11:40] VITALS: BP 102/80; BP 106/84; BP 112/80; PULSE 75; PULSE 82; PULSE 97; O2SAT 97; O2SAT 98
== END 2025-02-16 12:11 | disposition home or self-care (01) ==
LOC: HO.HMCH 11:31
PROVIDERS: PCP Internal Medicine; Visit Provider Internal Medicine
DX: R42 Dizziness and giddiness (principal); E66.01 Morbid (severe) obesity due to excess calories; Z68.43 Body mass index [BMI] 50.0-59.9, adult; M79.7 Fibromyalgia; K91.5 Postcholecystectomy syndrome; F43.10 Post-traumatic stress disorder, unspecified; F17.200 Nicotine dependence, unspecified, uncomplicated

== ENCOUNTER → 2025-02-16 11:30 | Outpatient (BNVA) | payer OTHER, SELFPAY | PROVIDERS: PCP Internal Medicine; Visit Provider Internal Medicine | DX: M79.7 Fibromyalgia (principal); R42 Dizziness and giddiness; K91.5 Postcholecystectomy syndrome; F43.10 Post-traumatic stress disorder, unspecified; F17.210 Nicotine dependence, cigarettes, uncomplicated; E66.01 Morbid (severe) obesity due to excess calories; D64.9 Anemia, unspecified; E55.9 Vitamin D deficiency, unspecified; Z68.43 Body mass index [BMI] 50.0-59.9, adult | CPT/HCPCS: 96127; 99212 ==

== ENCOUNTER 2025-03-31 18:38 | Emergency (ER) | payer OTHER, SELFPAY ==
--- NOTE | 2025-03-31 | ECG_ITS ---
Test Reason : CHEST PAIN Blood Pressure : */* mmHG Vent. Rate : 94 BPM Atrial Rate : 94 BPM P-R Int : 130 ms QRS Dur : 66 ms QT Int : 360 ms P-R-T Axes : 44 61 29 degrees QTcB Int : 450 ms Normal sinus rhythm Normal ECG When compared with ECG of 17-Nov-2023 10:34, No significant change was found Referred By: Generic ED Physician Electronically Signed By: Leonel Hoffman
--- NOTE | ~2025-03-31 | XR_ITS ---
CLINICAL HISTORY: chest сергей, rhonchi and wheezes 2 view chest x-ray. Comparison: None Findings: No consolidation. No pneumothorax. Heart size normal No acute fracture. Impression: Lungs are clear. This document has been electronically signed by: Favian Brewer MD on 03/31/2025 19:44:52
--- NOTE | ~2025-03-31 | CT_ITS ---
CLINICAL HISTORY: chest pain CT chest without contrast Comparison: CR - XR CHEST 2V - 03/31/25 19:18 EDT Findings: Normal heart,size. No significant pericardial effusion. No thoracic aorta aneurysm. No focal pulmonary consolidation, pneumothorax, or pleural effusion. The gallbladder is surgically absent. No acute fractures. Impression: 1. No acute cardiopulmonary process. No focal pulmonary consolidation, pneumothorax, or pleural effusion. This document has been electronically signed by: Behzad Krishnamurthy MD on 04/01/2025 00:56:53
[2025-03-31 18:50] VITALS: BP 124/84; PULSE 90; RESP 18; TEMP 36.6; O2SAT 98; BMI 48.4
--- NOTE | 2025-03-31 18:53 | ED_ITS ---
HPI - Chest Pain General Chief Complaint: Chest Pain Stated Complaint: Chest Pain Time Seen by Provider: 03/31/25 20:35 Source: patient and other (patient's fiance) Mode of arrival: ambulatory Limitations: no limitations History of Present Illness ED Provider: Rajani Kelly PA-C HPI narrative: Patient is a 40 year old assigned female at with a history of fibromyalgia presenting to the emergency department today with chest pain. Patient states that she has been feeling generally unwell since 03/26/2025 and was seen at [facility] for her abdominal pain when they told her she had an inflamed colon and discharged her home. Patient states that starting over the last 2 hours she is having central chest pain that is new while continuing to have the previously evaluated abdominal pain. Patient denies any dizziness, lightheadedness, nausea, vomiting, fever, chills, blurry vision, double vision, loss of vision, difficulty breathing, shortness of breath, back pain, night sweats, pain with urination, increased urinary frequency, increased urinary urgency, blood in her urine or stool, syncope or a near syncopal episode, recent trauma or falls, bowel incontinence, bladder incontinence, or any other complaints at this time. Related Data Home Medications ?Medication ?Instructions ?Recorded ?Confirmed ibuprofen 800 mg tablet 800 mg PO Q8H PRN pain 09/0902/16/25 Previous Rx's ?Medication ?Instructions ?Recorded chair, wheel (Wheel chair) #1 ea 06/12/22 commode (bedside commode) #1 ea 06/12/22 cholecalciferol (vitamin D3) 50 50 mcg PO DAILY 90 day s #90 caps 11/20/23 mcg (2,000 unit) capsule gabapentin 800 mg tablet 800 mg PO TID #90 tabs 02/16 Allergies Allergy/AdvReac Type Severity Reaction Status Date / Time cephalexin (From KEFLEX) AdvReac Intermediate NAUSEA & Verified 03/31/25 18:50 VOMITING duloxetine (From CYMBALTA) AdvReac Intermediate NAUSEA & Verified 03/31/25 18:50 VOMITING Review of Systems 2 Constitutional: Constitutional: Reports no additional constitutional complaints, Denies chills, Denies fever(s) and Denies night sweats Eyes: Eyes: Reports no additional eye complaints, Denies blurry vision, Denies change in vision, Denies diplopia, Denies eye discharge, Denies loss of vision and Denies eye pain ENT: Denies dizziness Cardiovascular: Cardiovascular: Reports no additional cardiovascular complaints, Reports chest pain, Denies lightheadedness, Denies Loss of Consciousness and Denies dyspnea Respiratory: Respiratory: Reports no additional respiratory complaints and Denies dyspnea Gastrointestinal: Gastrointestinal: Reports no additional gastrointestinal complaints, Reports abdominal pain, Denies melena, Denies hematochezia, Denies change in bowel habits and Denies change in stool character Genitourinary: Genitourinary: Denies hematuria, Denies urinary frequency, Denies dysuria, Denies urinary incontinence, Denies urinary hesitancy and Denies urinary urgency Musculoskeletal: Musculoskeletal: Reports no additional musculoskeletal complaints, Denies numbness and Denies tingling Neurologic: Denies dizziness, Denies loss of vision, Denies numbness and Denies tingling Psychiatric: Psychiatric: Reports no additional psychiatric complaints Endocrine: Endocrine: Reports no additional endocrine complaints Hematologic/Lymphatic: Hematologic/Lymphatic: Reports no additional hematologic/lymphatic complaints Allergic/Immunologic: Allergic/Immunologic: Reports no additional allergic/immunologic complaints PMFSH Past Medical History Attestation statement: The following information was validated with the patient. (all information validated with the patient's fiance) Source: old records reviewed, nursing notes reviewed and other (patient's fiance provided additional history and confirmed the history provided by the patient) Medical History Morbid obesity with BMI of 45.0-49.9, adult Metatarsal bone fracture Bimalleolar ankle fracture Morbid obesity with BMI of 50.0-59.9, adult Smoker Post traumatic stress disorder (PTSD) COVID-19 Fibromyalgia Surgical History History of ankle surgery History of laparoscopic cholecystectomy (~2007) Social History Social History Housing: Apartment Alcohol intake: never Patient Tobacco Use Status: Current everyday Tobacco user Tobacco use type: Cigarette Cigarettes Per Day: 10 Smoked in Last 30 Days: Yes e-Cigarette/Vaping Use: Currently Using Second Hand Smoke Exposure: Yes Use of substances other than those prescribed or required for medical reasons: Yes Substance Use Type: Marijuana Advance Directives: No Advance Directives Information Provided: No Do you have a plan to hurt others: No Plan service: No Current occupational status: student Sexual orientation: Straight/Heterosexual Gender identity: Female Cognitive needs: No Hearing needs: No Vision needs: No Physical Exam 2 Vital Signs: Vital Signs: Last Vital Signs Temp 98.6 F 03/31/25 22:13 Pulse 67 03/31/25 22:13 Resp 15 03/31/25 22:13 BP 119/77 03/31/25 22:13 Pulse Ox 98 03/31/25 22:13 O2 Del Method Room Air 03/31/25 22:13 BMI result Body Mass Index 48.4 Const: General: cooperative, no acute distress, alert and awake Nutritional Appearance: well nourished Orientation/consciousness: patient oriented x3 HEENT: Head: Yes normal to inspection and Yes atraumatic Ears: hearing grossly normal bilaterally and external ears normal General nose exam: Normal external nose present, no nasal discharge noted and no epistaxis Face and sinus: Yes normal facial exam, No abrasion and No laceration Mouth: Normal oral and palatal mucosa present, no drooling and no muffled voice Eyes: General: appearance normal, both eyes and all related structures P eriorbital: periorbital findings normal Eyelids: Yes eyelids normal C onjunctivae: conjunctivae normal Pupils: Equal, round and reactive pupils present EOM: EOMs intact bilaterally Neck: Neck: Yes normal visual inspection, Yes full ROM and Yes no lymphadenopathy Resp: Effort & Inspection: normal respiratory effort and able to speak in complete sentences Neuro: General: patient oriented x3, moves all extremities and CN's II-XI intact bilaterally Cranial nerves: Yes Equal, round and reactive pupils present Cognition (Neuro): normal cognition Extrem: General: Yes normal to inspection, Yes full ROM and Yes capillary refill normal Psych: Appearance: grossly normal Mental Status: mental status grossly normal Affect: normal affect Attitude: cooperative Thought process: N ormal thought process present Thought content: Normal thought content present Insight: Good insight present (Psych) Course Course Course Narrative: This is a Rapid Medical Examination (RME) performed by Clarissa Arizmendi PA-C in triage. Full HPI, ROS, assessment and treatment plan per primary provider in the Main ED. 40 yo female, active smoker, fibromyalgia, PTSD, who presents to the ER for evaluation of sharp central chest pain and back pain that started today when she was sitting on the couch. It has been constant and getting worse. Recently seen at [facility] for N/V a few days ago and got IV fluids. expiratory wheezes and scattered rhonchi on exam, no respiratory distress. Plan: CXR, labs, EKG Medications Administered Discontinued Medications Generic Name Dose Route Start Last Admin Trade Name Javi PRN Reason Stop Dose Admin Potassium Chloride 40 meq 03/31/25 21:52 03/31/25 22:49 Potassium Chloride Packet 20 Meq Packet PO 03/31/25 21:53 40 meq ONCE ONE Administration Potassium Chloride 40 meq 03/31/25 23:06 03/31/25 23:14 Potassium Chloride Er 20 Meq Tab.Er.Prt PO 03/31/25 23:07 40 meq ONCE ONE Administration Medical Decision Making Medical Decision Making [facility] Narrative: Patient is a 40 year old assigned female at with a history of fibromyalgia presenting to the emergency department today with chest pain. Patient's physical exam was unremarkable. Patient's blood work showed an initial potassium of 3.1 and troponin of 56.3, patient's 2 hour and 3 hour repeat troponin was <2.7. Patient's repeat potassium was 2.9. Patient's EKG was unremarkable. Patient's chest x-ray and chest CT showed no acute process. The patient's presentation was not concerning for any cardiac process. I am suspicious the patient's initial troponin was attributed to lab error rather than a true value. I explained my physical exam findings as well as all test results to the patient. I answered all questions asked by the patient. Patient received potassium supplementation. I stressed the importance of the patient taking her medication as directed (either prescribed or as the over the counter packaging recommends). I stressed the importance of the patient following up with her primary care provider. I stressed the importance of the patient returning to the emergency department immediately if her symptoms were to worsen or if she were to develop any dizziness, shortness of breath, difficulty breathing, chest pain, blurry vision, loss of vision, nausea, vomiting, abdominal pain, fever, chills, back pain, or any other complaints. Patient and the patient's fianceverbalized agreement and understanding with this treatment plan and discharge. Differential Diagnosis Differential Diagnoses: The differential diagnosis associated with the presentation includes Atypical chest pain Chest pain Admission/Observation Consideration of admission/observation: Escalation of care including admission/observation considered Patient would have been admitted to the hospital had her work up had any findings where hospital admission was appropriate and her clinical presentation warranted hospital admission. Lab Data [facility] Lab Attestation statement: I reviewed the patient's lab results. My interpretation of these results are in the MDM Rationale portion of this note. 03/31/25 19:37 03/31/25 22:40 Labs: Lab Results 03/31/25 03/31/25 03/31/25 Range/Units 19:37 21:20 22:40 WBC 7.2 (4.8-10.8) X10*3/uL RBC 4.97 (4.20-5.50) X10*6/uL Hgb 14.3 (12.0-16.0) g/dl Hct 40.3 (37.0-47.0) % MCV 81.1 (80.0-98.0) fL MCH 28.8 (27.0-33.0) pg MCHC 35.5 H (31.0-35.0) g/dl RDW 13.3 (11.0-16.0) % Plt Count 233 (160-400) X10*3/uL MPV 10.2 (9.4-12.3) fL Immature Gran % (Auto) 0.3 (0.0-0.4) % Neut % (Auto) 67.3 (45-73) % Lymph % (Auto) 26.3 (20-40) % [place] % (Auto) 5.7 (2-11) % Eos % (Auto) 0.1 (0-4) % Baso % (Auto) 0.3 (0-2) % Lymph # (Auto) 1.9 (1.2-4.9) X10*3/uL [place] # (Auto) 0.4 (0.1-1.2) X10*3/uL Eos # (Auto) 0.0 (0.0-0.4) X10*3/uL Baso # (Auto) 0.0 (0.0-0.2) X10*3/uL Abs Immat Gran (auto) 0.02 (0.00-0.03) X10*3/uL Absolute Neuts (auto) 4.9 (2.0-8.3) x10*3/uL Absolute Nucleated RBC 0.000 (0.0-0.012) X10*3/uL Nucleated RBC % (auto) 0.0 (0.0-0.2) /100WBC PT 13.4 H (10.9-12.4) SEC INR 1.2 H (0.9-1.1) APTT 29.4 (26.0-36.8) SEC Sodium 137 138 (135-145) mmol/L Potassium 3.1 L D 2.9 L* (3.3-5.1) mmol/L Chloride 104 104 (96-108) mmol/L Carbon Dioxide 24 27 (22-29) mmol/L Anion Gap 12 10 L (12-20) BUN 8 L 7 L (9-16) mg/dL Creatinine 0.79 0.75 (0.5-1.4) mg/dL Estim Creat Clear Calc 123.4 130.0 Estimated GFR > 60 > 60 Random Glucose 97 90 (60-115) mg/dL Calcium 8.7 8.5 (8.4-10.2) mg/dL Magnesium 2.0 (1.6-2.6) mg/dL Total Bilirubin 0.8 0.7 (0.0-1.0) mg/dL Direct Bilirubin 0.3 (0.0-0.5) mg/dL AST 39 H 34 H (5-31) U/L ALT 62 H 59 H (0-31) U/L Alkaline Phosphatase 90 81 (39-117) U/L Total Creatine Kinase 74 (26-140) U/L Troponin I High Sens 56.3 H* < 2.7 D < 2.7 (<3.5-17.0) ng/L B-Natriuretic Peptide 22 (<100) pg/mL Total Protein 6.8 6.1 L (6.5-8.0) g/dL Albumin 4.2 3.8 (3.5-5.0) g/dL Beta HCG, Quant < 2 mIU/mL Independent Interpretation I performed an independent interpretation of an: EKG, Plain X-Ray and CT Scan Interpretation: My interpretation is in agreement with the radiologist's impression of these imaging studies. L CLINICAL HISTORY: chest сергей, rhonchi and wheezes 2 view chest x-ray. Comparison: None Findings: No consolidation. No pneumothorax. Heart size normal No acute fracture. Impression: Lungs are clear. This document has been electronically signed by: Favian Brewer MD on 03/31/2025 19:44:52 Dictated By: Favian Brewer MD Signed By: Electronically signed by Favian Brewer MD 03/31/25 1946 Report Number: [id number]: Total DLP = 475.00 mGy-cm CLINICAL HISTORY: chest pain CT chest without contrast Comparison: CR - XR CHEST 2V - 03/31/25 19:18 EDT Findings: Normal heart,size. No significant pericardial effusion. No thoracic aorta aneurysm. No focal pulmonary consolidation, pneumothorax, or pleural effusion. The gallbladder is surgically absent. No acute fractures. Impression: 1. No acute cardiopulmonary process. No focal pulmonary consolidation, pneumothorax, or pleural effusion. This document has been electronically signed by: Behzad Krishnamurthy MD on 04/01/2025 00:56:53 Dictated By: Behzad Krishnamurthy MD Signed By: Electronically signed by Behzad Krishnamurthy MD 04/01/25 0057 I independently interpreted this EKG and am in agreement with the below findings: Vent. Rate: 94 BPM Atrial Rate: 94 BPM P-R Int: 130 ms QRS Dur: 66 ms QT Int: 360 ms P-R-T Axes: 44 61 29 degrees QTcB Int: 450 ms Normal sinus rhythm Normal ECG When compared with ECG of 17-Nov-2023 10:34, No significant change was found DD/ [id number] Radiology Impression Discussion of test interpretation with radiology: I have reviewed the radiologist's reading. Independent Historian Clinical information obtained from an independent historian. History obtained from or confirmed by: Other (patient's fianc? provided additional history and confirmed the history provided by the patient. ) Critical Care Time Critical Care Time Critical Care Time: Yes Total Critical Care Time: 32 Attestation: I spent 32 minutes of Critical Care Time with this patient. This does not include time spent on separately reported billable procedures. Discharge Plan Discharge Clinical Impression: Atypical chest pain, Hypokalemia Patient Disposition: Home, Self-Care Instructions: Chest Pain (DC), Potassium Content of Foods List (ED), Hypokalemia (ED) Additional Instructions: Your work up today was reassuring there was no emergent process for your symptoms. Your potassium was on the low side for which we gave you some while in the department - it is crucial you eat potassium rich foods and follow up with your primary care provider about this. Follow up with your primary care provider. Return to the emergency department immediately if your symptoms worsen or if you develop any numbness, tingling, dizziness, shortness of breath, difficulty breathing, chest pain, blurry vision, loss of vision, nausea, vomiting, abdominal pain, fever, chills, back pain, or any other complaints. Please see the information below about our Patient Portal. If you are not yet enrolled in the [facility] Patient Portal, you will receive an enrollment email invitation following your visit to any [facility] [place] setting. You may also self-enroll in the Patient Portal by visiting our website: [email or web address] The following information is required to access the Patient Portal: - Your [facility] Medical Record Number - Your personal home email address (must match what is in your electronic medical record, Registration staff can assist with this) - Name - Date of Capabilities of the Patient Portal: - Message some providers - View upcoming appointments - Access your health summary, medical history, and visit history - View current conditions and allergies - View procedure and lab results - View your medications, including guidelines, side effects, and precautions - Complete pre-appointment questionnaires requested by your provider - Ready summary reports of your office visits and procedures To access the Patient Portal Mobile [employer], follow these directions: - Search [employer] in the [employer] Store or [employer] Play Store - Download the [employer]ikel - Search for [facility] - Enter your login/password Prescriptions: No Action cholecalciferol (vitamin D3) 50 mcg (2,000 unit) capsule 50 mcg PO DAILY 90 Days Qty: 90 3RF gabapentin 800 mg tablet 800 mg PO TID Qty: 90 1RF (DME) Wheel chair Kit See Rx Instructions .Route Qty: 1 0RF Rx Instructions: As directed (DME) bedside commode Kit See Rx Instructions .Route Qty: 1 0RF Rx Instructions: As directed ibuprofen 800 mg tablet 800 mg PO Q8H PRN (Reason: pain) Referrals: Kelvin Celestin MD [Primary Care Provider, Internal Medicine] Print Language: Czech
[2025-03-31 19:43] LABS: MANUAL DIFF FLAG NO
[2025-03-31 19:49] LABS: Basophils Percent Auto 0.3 % (0-2); Eosinophils Percent Auto 0.1 % (0-4); Hematocrit 40.3 % (37.0-47.0); Hemoglobin 14.3 g/dl (12.0-16.0); Imm Gran Abs Auto 0.02 X10*3/uL (0.00-0.03); Imm Gran Pct Auto 0.3 % (0.0-0.4); Lymphocytes Absolute Auto 1.9 X10*3/uL (1.2-4.9); Lymphocytes Percent Auto 26.3 % (20-40); Mean Corpuscular HGB Conc 35.5 g/dl (31.0-35.0); Mean Corpuscular Hemoglobin 28.8 pg (27.0-33.0); Mean Corpuscular Volume 81.1 fL (80.0-98.0); Mean Platelet Volume 10.2 fL (9.4-12.3); Monocytes Absolute Auto 0.4 X10*3/uL (0.1-1.2); Monocytes Percent Auto 5.7 % (2-11); Neutrophils Absolute Auto 4.9 x10*3/uL (2.0-8.3); Neutrophils Percent Auto 67.3 % (45-73); Platelet Count 233 X10*3/uL (160-400); Red Blood Count 4.97 X10*6/uL (4.20-5.50); Red Cell Distribution Width 13.3 % (11.0-16.0); White Blood Count 7.2 X10*3/uL (4.8-10.8)
[2025-03-31 19:55] LABS: INTERNATIONAL NORM RATIO 1.2 (0.9-1.1); Prothrombin Time 13.4 SEC (10.9-12.4)
[2025-03-31 19:58] LABS: Partial Thromboplastin Time 29.4 SEC (26.0-36.8)
[2025-03-31 20:01] LABS: Alanine Aminotransferase 62 U/L (0-31); Albumin Level 4.2 g/dL (3.5-5.0); Alkaline Phosphatase 90 U/L (39-117); Anion Gap 12 (12-20); Aspartate Amino Transferase 39 U/L (5-31); Bilirubin Direct 0.3 mg/dL (0.0-0.5); Bilirubin Total 0.8 mg/dL (0.0-1.0); Blood Urea Nitrogen 8 mg/dL (9-16); Calcium 8.7 mg/dL (8.4-10.2); Carbon Dioxide 24 mmol/L (22-29); Chloride 104 mmol/L (96-108); Creatinine Clr Calc Pharmacy 123.4; Estimated Glomerular Filt Rate > 60; Glucose Random 97 mg/dL (60-115); Potassium 3.1 mmol/L (3.3-5.1); Sodium 137 mmol/L (135-145); Total Protein 6.8 g/dL (6.5-8.0)
[2025-03-31 20:05] LABS: B Type Natriuretic Peptide 22 pg/mL (<100)
[2025-03-31 20:36] LABS: Troponin-I High Sensitivity 56.3 ng/L (<3.5-17.0)
[2025-03-31 20:59] VITALS: PULSE 77
[2025-03-31 21:47] LABS: Troponin-I High Sensitivity < 2.7 ng/L (<3.5-17.0)
[2025-03-31 22:13] VITALS: BP 119/77; PULSE 67; RESP 15; TEMP 37; O2SAT 98
[2025-03-31] MEDS: Potassium Chloride Packet 20 MEQ PACKET 40 MEQ PO (22:49)
[2025-03-31 23:07] LABS: Alanine Aminotransferase 59 U/L (0-31); Albumin Level 3.8 g/dL (3.5-5.0); Alkaline Phosphatase 81 U/L (39-117); Anion Gap 10 (12-20); Aspartate Amino Transferase 34 U/L (5-31); Bilirubin Total 0.7 mg/dL (0.0-1.0); Blood Urea Nitrogen 7 mg/dL (9-16); Calcium 8.5 mg/dL (8.4-10.2); Carbon Dioxide 27 mmol/L (22-29); Chloride 104 mmol/L (96-108); Estimated Glomerular Filt Rate > 60; Glucose Random 90 mg/dL (60-115); Potassium 2.9 mmol/L (3.3-5.1); Sodium 138 mmol/L (135-145); Total Protein 6.1 g/dL (6.5-8.0); Troponin-I High Sensitivity < 2.7 ng/L (<3.5-17.0)
[2025-03-31 23:11] LABS: HCG Quantitative < 2 mIU/mL
[2025-03-31] MEDS: Potassium Chloride ER 20 MEQ TAB.ER.PRT 40 MEQ PO (23:14)
[2025-04-01 01:24] VITALS: BP 119/77; PULSE 67; RESP 15; TEMP 37; O2SAT 98
== END 2025-04-01 01:26 | disposition home or self-care (01) ==
PROVIDERS: Physician Assistant; Physician Assistant Medical; Emergency Provider Emergency Medicine Emergency Medical Services; PCP Internal Medicine
DX: R07.89 Other chest pain (principal); E87.6 Hypokalemia; R06.02 Shortness of breath; R10.2 Pelvic and perineal pain; F17.210 Nicotine dependence, cigarettes, uncomplicated; Z79.899 Other long term (current) drug therapy
CPT/HCPCS: 36415; 71046; 71250; 80048; 80053; 80076; 82550; 83735; 83880; 84484; 84702; 85025; 85610; 85730; 93005; 99284; 99285

== ENCOUNTER → 2025-03-31 18:46 | Outpatient (BNV) | payer OTHER, SELFPAY | PROVIDERS: Emergency Provider Emergency Medicine Emergency Medical Services; PCP Internal Medicine; Visit Provider Internal Medicine Cardiovascular Disease | DX: R07.9 Chest pain, unspecified (principal) | CPT/HCPCS: 93010 ==

== ENCOUNTER → 2025-03-31 18:56 | Outpatient (BNV) | payer OTHER, SELFPAY | PROVIDERS: PCP Internal Medicine; Visit Provider Radiology Diagnostic Radiology | DX: R07.9 Chest pain, unspecified (principal) | CPT/HCPCS: 71250 ==

== ENCOUNTER 2025-09-05 10:44 | Outpatient (AMB) | payer OTHER, SELFPAY ==
--- OUTSIDE RECORDS SUMMARY | 2024-07-26 12:23 | XMS_ITS | Encounter Summary ---
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 Role Phone Unavailable Primary Care Provider Unavailabl e Encounter Details Date Type Department Care Team (Late st Contact Info) Description 07/26/2024 1:23 PM EDT Hospital Encounter [facility] CONVERSION ONLY Gael El MD [address] [facility] [place] [place] [id number] Social History Tobacco Use Types Packs/Day Years Used Date Smoking Tobacco: Never Assessed Comments Unknown Sex and Gender Information Value Date Recorded Sex Assigned at Not on file Legal Sex Female 1:24 PM EDT Gender Identity Not on file Sexual Orientation Not on file documented as of this encounter Procedure Notes * Malathi Shelby NP - 07/26/2024 3:27 PM EDT Procedure Note Encounter Date & Time 07/26/24 15:24 Procedure Note Procedure: Tilt table test The patient was brought to the radiology department the fasting state and placed onto the tilt table. She was connected to continuous noninvasive EKG monitoring. The [facility] finger blood pressure monitor was used for the duration of the procedure. An intravenous line was inserted with the assistance of the IV nurse. Baseline blood pressure 132/75 with a heart rate of 66 normal sinus rhythm. After 5-minute wait. The table was tilted to a 70 degree upright position. The first blood pressure upright is 150/90 with a heart rate of 83 she is feeling slightly dizzy. At 2 minutes of blood pressure is 182/100 with a heart rate of 88 she is feeling more dizzy At 8 minutes of blood pressure is 160/100 with a heart rate of 98 she is feeling more dizzy she is noticing palpitation and then she feels like she has tunnel vision At 15 minutes of blood pressure is 150/96 with a heart rate of 92. No change in symptoms the patient was returned to a flat position and the procedure terminated Impression: Appropriate blood pressure heart rate response to a 70 degree tilt. Symptoms today are unrelated to heart rate or blood pressure. Send Copies To: Dr El; MD JOSE Liu PHYLLIS A FNP-C Jul 26, 2024 15:27 documented in this encounter Plan of Treatment Not on file documented as of this encounter Visit Diagnoses Not on filedocumented in this encounter
[2025-09-05 10:56] VITALS: BP 124/80; PULSE 80; O2SAT 98; BMI 48.9
--- NOTE | 2025-09-05 10:56 | A.OFFPC_ITS ---
Vital Signs 09/05/25 10:56 Height 5 ft 3 in Weight 276 lb 2 oz BMI 48.9 BP 124/80 Blood Pressure Location Lt brachial Position Sitting Pulse 80 Pulse Source Pulse Oximeter Pulse Oximetry (%) 98 Oxygen Delivery Method Room Air Intake Visit Reasons: annual PE Assistant Press Operator Required: No Accompanied by: Self / Same As Patient Allergies cephalexin (From KEFLEX) Adverse Reaction (Intermediate, Verified 09/05/25 11:19) NAUSEA & VOMITING duloxetine (From CYMBALTA) Adverse Reaction (Intermediate, Verified 09/05/25 11:19) NAUSEA & VOMITING Medication List - Last Reconciled 09/05/25 by Kelvin Celestin MD chair, wheel (Wheel chair) As directed cholecalciferol (vitamin D3) 50 mcg PO DAILY 90 days commode (bedside commode) As directed gabapentin 800 mg PO TID ibuprofen 800 mg PO Q8H PRN Tobacco use date assessed: 09/05/25 Dental Screening Dental Screen Date: 09/05/25 Did you have a dental visit in the last 12 months?: No Did you have a dental problem in the last 6 months where you did not have access to dental care?: No Was dental information given to patient?: No HPI annual PE HPI Details Patient comes in today for her annual physical examination States that she continues to experience increased diffuse pain due to her fibromyalgia - relates that she was diagnosed with fibromyalgia when she was around 23 y/o but recalls that she was already experiencing widespread pain when she was a teenager Adds that she has also been experiencing increased pain over multiple joints lately, including over her lower back, over the shoulders, in both hips and both knees as well as over her right ankle Notes that the cold weather the tend to make her joint pains feel worse She denies any history of injuries to her shoulder, hips and knees but has a history of right ankle fracture for which she underwent orthopedic surgery and hardware placement She takes Gabapentin, which helps make her symptoms more tolerable; was not able to tolerate Cymbalta in the past due to side effects She denies any headaches or dizziness Denies any chest pains, no SOB No nausea/vomiting, no abdominal pain No change in bowel habits noted Denies any acute urinary symptoms She was not able to get her follow up labs done prior to her appointment today States that she is also due for her yearly gynecology exam and Pap smear and she will be calling her [employer] operations staff officer DEWEY to schedule her appointment [facility] Medical History Morbid obesity with BMI of 45.0-49.9, adult Metatarsal bone fracture Bimalleolar ankle fracture Morbid obesity with BMI of 50.0-59.9, adult Smoker Post traumatic stress disorder (PTSD) COVID-19 Fibromyalgia Surgical History History of ankle surgery History of laparoscopic cholecystectomy (~2007) Social History Housing: Apartment Alcohol intake: never Patient Tobacco Use Status: Current everyday Tobacco user Tobacco use type: Cigarette Cigarettes Per Day: 10 e-Cigarette/Vaping Use: Currently Using Second Hand Smoke Exposure: Yes Substance Use Type: Marijuana service: No Current occupational status: student Sexual orientation: Straight/Heterosexual Gender identity: Female Cognitive needs: No Hearing needs: No Vision needs: No Questionnaire PHQ-9 Over the last 2 weeks, how often have you been bothered by any of the following problems? 1. Little interest or pleasure in doing things: not at all 2. Feeling down, depressed, or hopeless: not at all 3. Trouble falling or staying asleep, or sleeping too much: not at all 4. Feeling tired or having little energy: not at all 5. Poor appetite or overeating: not at all 6. Feeling bad about yourself - or that you are a failure or have let yourself or your family down: not at all 7. Trouble concentrating on things, such as reading the newspaper or watching television: not at all 8. Moving or speaking so slowly that other people could have noticed. Or the opposite - being so fidgety or restless that you have been moving around a lot more than usual: not at all 9. Thoughts that you would be better off or of hurting yourself in some way: not at all Total score: 0 Depression Screening Interpretation: Negative Depression Screening Done: Yes 12719 - PHQ-9 Billing: Yes Source: Developed by Drs. Iván Iqbal, Milla Oneill, Joaquin Roman and colleagues, with an educational saskia from [employer]. Thrive Questionnaire Date Thrive assessed: 11/25/25 I am a: Patient What is your living situation today?: I have a steady place to live Within the past 12 months, did the food you bought not last and you didn't have the money to get more?: Never true Within the past 12 months, did you worry whether your food would run out before you got money to buy more?: Never true Do you have trouble paying for medicines?: No Do you have trouble getting transportation to medical appointments?: No Do you have trouble paying your heating and electricity bill?: No Do you have trouble taking care of your child, family member or friend?: No Do you have trouble with day-to-day activities such as bathing, preparing meals, shopping, managing finances, etc.?: No Are you currently unemployed and looking for a job?: No Are you interested in more education?: No Please select the resources that you would like help with: None Currently or been in a relationship where the following occur: No concerns reported THRIVE Score: 0 AUDIT C Alcohol Use Questionnaire (AUDIT-C) 1. How often do you have a drink containing alcohol?: Never 3. How often do you have six or more drinks on one occasion?: Never Total Score: 0 Score Reviewed/Action Taken: Yes ALEXANDRA-7 AMB Questionnaire ALEXANDRA-7 Date ALEXANDRA - 7 assessed: 09/05/25 Feeling nervous, anxious, or on edge: 0 = Not at all Not being able to stop or control worryin = Not at all Worrying too much about different things: 0 = Not at all Trouble relaxin = Several days Being so restless that it is hard to sit still: 1 = Several days Becoming easily annoyed or irritable: 1 = Several days Feeling afraid as if something awful might happen: 0 = Not at all Total ALEXANDRA-7 score (0-4 normal; 5-9 mild; 10-14 moderate; 15-21 severe): 3 Source: Developed by Drs. Iván Iqbal, Milla Oneill, Joaquin Roman and colleagues, with an educational saskia from [employer]. Review of Systems Const Reports body aches (diffuse), Denies chills, Reports fatigue, Denies fever(s), Denies headache(s) and Denies malaise Eyes Denies blurry vision, Denies change in vision, Denies irritation and Denies itchy eyes ENT Denies dysphagia, Denies dizziness, Denies otalgia, Denies headache(s), Denies nasal congestion, Denies neck pain, Denies odynophagia, Denies sinus pain and Denies sore throat Card Denies chest pain, Denies rapid heart rate, Denies irregular heart rhythm, Denies palpitations and Denies dyspnea Resp Denies chest congestion, Denies cough, Denies dyspnea and Denies wheezing GI Denies abdominal pain, Denies bloating, Denies constipation, Denies dysphagia, Denies heartburn, Reports loose stools (on and off, especially after eating), Denies nausea, Denies odynophagia and Denies vomiting Denies hematuria, Denies difficulty voiding, Denies dysuria, Denies urinary incontinence and Denies urinary urgency Musc Reports back pain (over the lower back - increased lately), Reports arthralgias (involving multiple joints - including shoulders, hips, knees and R ankle), Denies joint swelling, Denies muscle weakness and Denies neck pain Skin/Breast Denies breast pain, Denies breast mass, Denies change in pigmentation, Denies lesions, Denies rash and Denies unusual bruising Neuro Denies dizziness, Denies headache(s) and Denies paresthesias Psych Denies anxiety and Denies depression Endo Reports fatigue and Denies palpitations Adolfo/Lymph Denies easy bruising Aller/Immun Denies itchy eyes and Denies wheezing Physical exam (Primary Care) Vital Signs: Last Vital Signs Pulse 80 09/05/25 10:56 BP 124/80 09/05/25 10:56 Pulse Ox 98 09/05/25 10:56 Oxygen Delivery Method Room Air 09/05/25 10:56 BMI result Body Mass Index 48.9 Tobacco/Smoking Status: Tobacco use Status Tobacco use date assessed 09/05/25 09/05/25 11:07 Patient Tobacco Use Status Current everyday Tobacco 09/05/25 11:07 Tobacco use type Cigarette 09/05/25 11:07 e-Cigarette/Vaping Use Currently Using 09/05/25 11:07 PHQ-9: PHQ-9 Score PHQ-9: Total score 0 09/09/25 05:56 Depression Screening Interpretation: Negative Thrive Assessment: Date of Thrive Assessment Date Thrive assessed 09/05/25 09/05/25 11:07 Currently or been in a relationship where the following occur: No concerns reported Const General: no acute distress and alert Orientation/consciousness: patient oriented x3 [facility] Head: Yes normocephalic and Yes atraumatic Ears: TM's normal bilaterally and EAC's normal General nose exam: No nasal discharge present Face and sinus: Yes normal facial exam and Yes sinuses nontender Teeth and gingiva: dentition normal Throat: Yes posterior oropharynx normal and Yes tonsils normal (no TP congestion noted) Eyes Eyelids: Yes eyelids normal Conjunctivae: conjunctivae normal Pupils: Equal, round and reactive pupils present EOM: EOMs intact bilaterally Neck Neck: No lymphadenopathy and Yes tender (over the cervical spine and paraspinal areas bilaterally) Thyroid: Thyroid normal Resp Auscultation: clear to auscultation bilaterally, no rales and no wheezes Cardio Rate: regular rate Rhythm: regular rhythm Heart sounds: no murmurs GI Palpation (GI): Soft to palpation, nontender and No hepatosplenomegaly present Auscultation: normal bowel sounds General: Yes no CVA tenderness Back/Spine/Pelvis Back: no CVA tenderness Thoracic/Lumbar Spine: paraspinal muscle tenderness bilaterally (over the cervical and thoracolumbar spine (diffuse)) and lumbar spinal tenderness Skin Lesions: no lesions Rashes: no rashes Neuro General: patient oriented x3, moves all extremities, no focal motor deficits and CN's II-XI intact bilaterally Cranial nerves: Yes Equal, round and reactive pupils present Cognition (Neuro): normal cognition Gait exam (Neuro): Normal gait present Extrem General: Yes no clubbing, cyanosis or edema Right upper extremity: shoulder/upper arm Details: tenderness (diffusely over the scapular area) Left upper extremity: shoulder/upper arm Details: tenderness (diffusely over the scapular areas) Coding Level of Care Code Est Pt Prev Care 18-39y(37740) Diagnoses Annual physical exam Z00.00 Dizziness R42 Fibromyalgia M79.7 Bilateral low back pain, unspecified chronicity, unspecified whether sciatica present M54.50 Chronicity: unspecified Back pain laterality: bilateral Sciatica presence: unspecified whether sciatica present Arthralgia, unspecified joint M25.50 Joint pain location: unspecified 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 Post traumatic stress disorder (PTSD) F43.10 Smoker F17.200 Morbid obesity with BMI of 45.0-49.9, adult E66.01; Z68.42 Additional Codes PHQ-9 - 79308 - PHQ-9 Billing: Yes ([id number]) Assessment & Plan Assessment & Plan (1) Annual physical exam: Code(s): Z00.00 - Encounter for general adult medical examination without abnormal findings Category: Medical Plan: Check labs DEWEY to complete her annual exam today She is now due for her yearly gynecology exam and pap smear and states that she will try to reach out to her [employer] operations staff officer to schedule her appointment DEWEY (2) Dizziness: Code(s): R42 - Dizziness and giddiness Category: Medical Plan: She was experiencing frequent/recurrent dizziness and tachycardia last year but work ups done, including echocardiogram, extended Holter monitor and tilt table testing, back in June through July 2024 all came back normal Patient now admits that her recurrent dizziness back then was likely due to increased stress States that her symptoms have subsided significantly and occur only occasionally nowadays (3) Fibromyalgia: Code(s): M79.7 - Fibromyalgia Category: Medical Plan: Patient is encouraged again on regular exercise and physical activity to help manage her fibromyalgia symptoms Continue Gabapentin 800 mg TID (4) Low back pain: Code(s): M54.50 - Low back pain, unspecified Category: Medical Qualifiers: Chronicity: unspecified Back pain laterality: bilateral Sciatica presence: unspecified whether sciatica present Qualified Code(s): M54.50 - Low back pain, unspecified Plan: Will send patient for lumbar spine x-rays for further evaluation (5) Arthralgia: Code(s): M25.50 - Pain in unspecified joint Category: Medical Qualifiers: Joint pain location: unspecified Qualified Code(s): M25.50 - Pain in unspecified joint Plan: Involving multiple joints, including both shoulders, both hips, both knees and the right ankle Will send for x-rays of her shoulders, hips, knees and right ankle for further evaluation Will also check some labs, including inflammatory markers, for further evaluation of her recently increasing joint pains (6) 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 Category: Medical Plan: Patient states that she's had these symptoms (loose stools, especially postprandially) since her gall bladder surgery in 2007 and has gotten used to them by now Reinforced avoidance of fried / greasy or oily foods to minimize aggravating her diarrhea Have advised her in the past that we can try her on Questran powder if needed to help minimize her symptoms - patient declined Rx and states that she will call if she changes her mind (7) Post traumatic stress disorder (PTSD): Code(s): F43.10 - Post-traumatic stress disorder, unspecified Category: Medical Plan: Follow up with psychiatry as scheduled (8) Smoker: Code(s): F17.200 - Nicotine dependence, unspecified, uncomplicated Category: Social Hx Plan: Patient is again counseled on complete smoking cessation (9) Morbid obesity with BMI of 45.0-49.9, adult: Code(s): E66.01 - Morbid (severe) obesity due to excess calories; Z68.42 - Body mass index [BMI] 45.0-49.9, adult Category: Medical Plan: Reinforced diet/exercise as tolerated/lose weight Plan Follow up in 6 months Orders: Orders XR lumbar spine 2-3V 09/05/25 M54.50 - Low back pain, unspecified XR knee standing BI 09/05/25 M25.561 - Pain in right knee, M25.562 - Pain in left knee GAGANDEEP Reflex Titer and Pattern 09/05/25 M25.50 - Pain in unspecified joint Rheumatoid Factor 09/05/25 M25.50 - Pain in unspecified joint Erythrocyte Sedimentation Rate 09/05/25 M25.50 - Pain in unspecified joint, M79.7 - Fibromyalgia XR hip BI w PEL1V 09/05/25 M25.551 - Pain in right hip, M25.552 - Pain in left hip XR ankle RT min 3V 09/05/25 M25.571 - Pain in right ankle and joints of right foot XR Shoulder Yosi min 2V 09/05/25 M25.511 - Pain in right shoulder, M25.512 - Pain in left shoulder C Reactive Protein 09/05/25 M25.50 - Pain in unspecified joint Lyme IgG/IgM w/reflex to WB 09/05/25 M25.50 - Pain in unspecified joint, W57.XXXA - Bitten or stung by nonvenomous insect and other nonvenomous arthropods, initial encounter
--- OUTSIDE RECORDS SUMMARY | 2025-09-05 13:52 | XMS_ITS | Clinical Summary ---
Author Organization [facility] [place] [address] Care Team Providers Care Assistant Unit Forester Name Role Phone Unavailable Primary Care Provider Unavailabl e Social History Tobacco Use Types Packs/Day Years Used Date Smoking Tobacco: Never Assessed Comments Unknown Sex and Gender Information Value Date Recorded Sex Assigned at Not on file Legal Sex Female 1:24 PM EDT Gender Identity Not on file Sexual Orientation Not on file Plan of Treatment Health Maintenance Due Date Last Done Comments DTaP,Tdap,and Td Vaccines (1 - Tdap) 2006 Hepatitis B Vaccines (1 of 3 - 19+ 3-dose series) 2006 Cervical Cancer Screening: P ap Smear 2008 HPV Vaccines (1 - 3-dose SCD M series) 2014 HIV Screening 08/07/2024 Hepatitis C Screening 08/07/2024 Social Influencers of Health Screening 08/07/2024 Depression Screening 10/12/2024 COVID-19 Vaccine ( - 2024-2 6 season) 2025 Influenza Vaccine (#1) 2025 RSV Immunization Adult Patie nts (1 - 1-dose 75+ series) 2062 HIB Vaccines Aged Out No longer eligi ble based on patient's age to complete this topic Hepatitis A Vaccines Aged Out No long er eligible based on patient's age to complete this topic IPV Vaccines Aged Out No longer eligi ble based on patient's age to complete this topic MMR Vaccines Aged Out No longer eligi ble based on patient's age to complete this topic Meningococcal ACWY Vaccine Aged Out N o longer eligible based on patient's age to complete this topic Meningococcal B Vaccine Aged Out No l onger eligible based on patient's age to complete this topic Pneumococcal Vaccine: Pediat rics (0 to 5 Years) and At-Risk Patients (6 to 49 Years) Aged Out No longer eligible b ased on patient's age to complete this topic RSV Immunization Patients Un therese 20 months Aged Out No longer eligible b ased on patient's age to complete this topic Varicella Vaccines Aged Out No longer eligible based on patient's age to complete this topic
== END 2025-09-05 11:34 | disposition home or self-care (01) ==
LOC: HO.HMCH 10:45
PROVIDERS: PCP Internal Medicine; Visit Provider Internal Medicine
DX: Z00.00 Encounter for general adult medical examination without abnormal findings (principal); R42 Dizziness and giddiness; E66.01 Morbid (severe) obesity due to excess calories; Z68.42 Body mass index [BMI] 45.0-49.9, adult; M79.7 Fibromyalgia; M54.50 Low back pain, unspecified; M25.50 Pain in unspecified joint; K91.5 Postcholecystectomy syndrome; F43.10 Post-traumatic stress disorder, unspecified; F17.200 Nicotine dependence, unspecified, uncomplicated

== ENCOUNTER → 2025-09-05 10:44 | Outpatient (BNVA) | payer OTHER, SELFPAY | PROVIDERS: PCP Internal Medicine; Visit Provider Internal Medicine | DX: Z00.00 Encounter for general adult medical examination without abnormal findings (principal); M79.7 Fibromyalgia; M54.50 Low back pain, unspecified; M25.511 Pain in right shoulder; M25.512 Pain in left shoulder; M25.551 Pain in right hip; M25.552 Pain in left hip; M25.562 Pain in left knee; M25.561 Pain in right knee; M25.571 Pain in right ankle and joints of right foot; R42 Dizziness and giddiness; K91.5 Postcholecystectomy syndrome; F43.10 Post-traumatic stress disorder, unspecified; F17.210 Nicotine dependence, cigarettes, uncomplicated; E66.01 Morbid (severe) obesity due to excess calories; Z68.42 Body mass index [BMI] 45.0-49.9, adult; Z79.899 Other long term (current) drug therapy | CPT/HCPCS: 96127; 99395 ==